=== PATIENT | female | born 1950 | race Caucasian/White ===

== ENCOUNTER → 2016-11-05 | Outpatient (CLI) | payer MEDICARE, OTHER ==
[2016-11-05 16:54] LABS: Basophils % (A) 1 %; CH 29.9; Eosinophils # (A) 0.2 k/uL (0-0.7); Eosinophils % (A) 3 %; HCT 36.3 % (34.0-46.0); HDW 2.94; HGB 12.3 gm/dL (11.4-16.0); Luc # (Auto) 0.18; Luc % (Auto) 2; Lymphocytes # (A) 2.5 k/uL (1.0-4.8); Lymphocytes % (A) 33 %; MCH 30.7 pg (25.0-35.0); MCHC 33.8 g/dL (31.0-37.0); Mean Platelet Volume 7.3; Monocytes # (A) 0.5 k/uL (0-1.0); Monocytes % (A) 6 %; Neutrophils # (A) 4.3 k/uL (1.3-7.7); Neutrophils % (A) 56 %; RBC 3.99 m/uL (3.80-5.40); RDW 13.8 % (11.5-15.5); WBC 7.6 k/uL (3.8-10.6); WBC (Perox) 7.63
[2016-11-05 17:24] LABS: Potassium 4.8 mmol/L (3.5-5.1); Total Bilirubin 0.5 mg/dL (0.2-1.3); Total Protein 6.9 g/dL (6.3-8.2)
--- NOTE | 2016-11-05 18:06 | XR ---
EXAMINATION TYPE: XR chest 2V DATE OF EXAM: 11/05/2016 COMPARISON: 01/12/2016 HISTORY: Short of breath TECHNIQUE: Frontal and lateral views of the chest are obtained. FINDINGS: Heart is probably enlarged. There is no gross heart failure. There is blunting of right co stophrenic angle. Left lung is clear. There is left axillary pacemaker with the lead tip in the right ventricle. There is mild right lateral rib deformity. IMPRESSION: Pleural diaphragmatic scarring on the right side that is unchanged compared to old exam. No heart failure. No acute lung disease. Mild cardiomegaly.
== END | disposition home or self-care (01) ==
LOC: LABWHC1 16:30
PROVIDERS: ATTEND Internal Medicine Cardiovascular Disease
DX: J98.4 Other disorders of lung (principal); I51.7 Cardiomegaly; R05 Cough
CPT/HCPCS: 36415; 71020; 80053; 83880; 85025

== ENCOUNTER → 2017-02-17 | Outpatient (CLI) | payer MEDICARE, OTHER ==
--- NOTE | 2017-02-17 14:33 | CT ---
EXAMINATION TYPE: CT lumbar spine w con DATE OF EXAM: 02/17/2017 COMPARISON: NONE HISTORY: 14-year-old female with low back pain Lons404/80ml. Low back pain. DLP: TECHNIQUE: Contiguous axial scanning of the lumbar spine performed with IV Contrast, patient injected with 80 mL of Visipaque 320. Delayed images through the kidneys were obtained. Coronal/sagittal lee nstructions performed. CT DLP: 1572.4 mGycm Automated exposure control for dose reduction was used. FINDINGS: Vertebral body heights are preserved. Hypertrophic facet arthropathy mid to lower lumbar spine with trace grade 1 anterolisthesis at L2-L4. Severe degenerative disc disease at L4-L5 and L5-S1 with loss of disc height, diffuse disc bulge, and vacuum phenomenon. At T12-L1, no spinal canal or neural foraminal stenosis. L1-L2, no spinal canal or neural foraminal stenosis. At L2-L3, there is diffuse disc bulge and facet degenerative change without significant canal or fora sariah stenosis. At L3-L4, mild bulging disc with ligamentum flavum thickening and facet arthropathy. Changes seen to mildly narrow the spinal canal and causes mild right neuroforaminal stenosis. At L4-L5, diffuse disc bulge with facet arthropathy and ligamentum flavum thickening. Changes result in moderate left and moderate to severe right neuroforaminal stenosis. At L5-S1, diffuse disc bulge with hypertrophic facet arthropathy. Changes result in severe bilateral neuroforaminal stenosis without spinal canal stenosis. Moderate sized hiatal hernia is noted. Cholecystectomy clips. 3 mm right-sided nonobstructive right renal calculus. Moderate atherosclerotic changes throughout the abdominal aorta and iliac arteries. It is some focall y ulcerated plaque or old chronic, calcified dissection in the mid abdominal aorta. Sigmoid diverticulosis. IMPRESSION: 1. NO VERTEBRAL COMPRESSION COLLAPSE. THERE IS A DEGENERATIVE TRACE ANTEROLISTHESIS AT L3-L4. 2. SEVERE DEGENERATIVE DISC DISEASE AT L4-L5 AND L5-S1. ADDITIONAL HYPERTROPHIC FACET ARTHROPATHY IN THE LOWER LUMBAR SPINE WITH LIGAMENTUM FLAVUM THICKENING. 3. AT L5-S1, CHANGES RESULT IN SEVERE BILATERAL NEURAL FORAMINAL STENOSIS. 4. AT L4-L5, CHANGES RESULT IN MODERATE TO SEVERE RIGHT AND MODERATE LEFT NEUROFORAMINAL STENOSIS. AD DITIONAL LEVEL BY LEVEL CHANGES ABOVE. 5. MODERATE-SIZED HIATAL HERNIA, NONOBSTRUCTIVE 3 MM RIGHT RENAL CALCULUS, SIGMOID DIVERTICULOSIS, AN D EITHER SOME FOCALLY ULCERATED PLAQUE OR OLD, CHRONICALLY CALCIFIED SHORT DISSECTION OF THE MID ABDO SARIAH AORTA. CORRELATE FOR ANY PRIOR ARTERIAL CATHETERIZATION/PROCEDURE.
== END | disposition home or self-care (01) ==
LOC: RADCTMAIN 12:13
PROVIDERS: ATTEND Family Medicine
DX: M99.73 Connective tissue and disc stenosis of intervertebral foramina of lumbar region (principal); M43.16 Spondylolisthesis, lumbar region; M51.26 Other intervertebral disc displacement, lumbar region; M46.96 Unspecified inflammatory spondylopathy, lumbar region; M24.28 Disorder of ligament, vertebrae; Z88.0 Allergy status to penicillin; Z88.1 Allergy status to other antibiotic agents; Z88.5 Allergy status to narcotic agent
CPT/HCPCS: 82565; 84520; 72132; 36415; Q9967

== ENCOUNTER 2017-05-25 17:03 | Observation (INO) | payer MEDICARE, OTHER ==
[2017-05-25] MEDS ORDERED: SODIUM CHLORIDE 0.9% 500 ML IV STA (17:43)
--- NOTE | 2017-05-25 17:47 | ED ---
General Adult HPI - General Chief complaint: Recheck/Abnormal Lab/Rx Stated complaint: Abn EKG Time Seen by Provider: 05/25/17 17:05 Source: patient, RN notes reviewed Mode of arrival: wheelchair Limitations: no limitations - History of Present Illness Initial comments: This is a 66-year-old female presents to the emergency department complaining that she has been spitting up for 8 months but states that there is usually any food when she spits up. Patient states in the last couple of weeks occasionally a little bit of food is in with the spit up. Patient states she went to see her doctor again today about that and they recorded a heart rate at 31 beats a minute in the office so they sent to the emergency department. Patient's EKG from the office showed a heart rate in the 60s. Patient denies any chest pain palpitations difficulty breathing or shortness of breath. She does complain of generalized fatigue. Patient denies any recent fever chills or cough per patient denies any diarrhea. Patient denies any dysuria hematuria or urinary frequency. Patient denies headache patient denies numbness weakness per patient denies lightheadedness dizziness or near syncopal episode. - Related Data Home Medications Medication Instructions Recorded Confirmed ALPRAZolam [Xanax] 0.5 mg PO BID PRN 02/19/16 05/25/17 Enalapril Maleate 2.5 mg PO DAILY 02/19/16 05/25/17 Furosemide [Lasix] 40 mg PO BID 02/19/16 05/25/17 Potassium Chloride 16 meq PO BID 02/19/16 05/25/17 Simvastatin [Zocor] 40 mg PO HS 02/19/16 05/25/17 Warfarin [Coumadin] 2.5 mg PO MOTH 02/19/16 05/25/17 Warfarin [Coumadin] 5 mg PO SUTUWEFRSA 02/19/16 05/25/17 oxyCODONE-APAP 10-325MG [Percocet 1 tab PO Q6HR PRN 02/19/16 05/25/17 10-325 mg] Aspirin EC [Ecotrin] 325 mg PO DAILY 05/25/17 05/25/17 Loratadine 10 mg PO DAILY 05/25/17 05/25/17 Metoprolol Tartrate [Lopressor] 75 mg PO BID 05/25/17 05/25/17 Ranitidine HCl 150 mg PO BID 05/25/17 05/25/17 Vortioxetine Hydrobromide 10 mg PO DAILY 05/25/17 05/25/17 [Trintellix] Allergies Allergy/AdvReac Type Severity Reaction Status Date / Time Penicillins Allergy Rash/Hives Verified 05/25/17 17:46 codeine AdvReac Nausea & Verified 05/25/17 17:46 Vomiting levofloxacin [From Levaquin] AdvReac Confusion Verified 05/25/17 17:46 Review of Systems ROS Statement: Those systems with pertinent positive or pertinent negative responses have been documented in the HPI. ROS Other: All systems not noted in ROS Statement are negative. Past Medical History Past Medical History: Heart Failure, COPD, GI Bleed, Osteoarthritis (OA), Pneumonia Additional Past Medical History / Comment(s): heart stent, mitral valve replacement, pacemaker AICD, hypotensive, PT STATED STOOLS HAVE BEEN MUCOUSY TO BLOODY. History of Any Multi-Drug Resistant Organisms: None Reported Past Surgical History: Pacemaker, Tubal Ligation Additional Past Surgical History / Comment(s): valve replacement, tubal ligation , Past Anesthesia/Blood Transfusion Reactions: No Reported Reaction Type of Cardiac Device: Unknown Device Placement Date:: 2014 Past Psychological History: Depression Smoking Status: Current every day smoker Past Alcohol Use History: None Reported Past Drug Use History: None Reported - Past Family History Mother Additional Family Medical History / Comment(s): MOM IN MVA ACCIDENT Father Family Medical History: Coronary Artery Disease (CAD) Additional Family Medical History / Comment(s): CARDIAC DISEASE General Exam - General Exam Comments Initial Comments: GENERAL: Patient is well-developed and well-nourished. Patient is nontoxic and well- hydrated and is in mild distress. ENT: Neck is soft and supple. No significant lymphadenopathy is noted. Oropharynx is clear. Moist mucous membranes. Neck has full range of motion without eliciting any pain. EYES: The sclera were anicteric and conjunctiva were pink and moist. Extraocular movements were intact and pupils were equal round and reactive to light. Eyelids were unremarkable. PULMONARY: Unlabored respirations. Good breath sounds bilaterally. No audible rales rhonchi or wheezing was noted. CARDIOVASCULAR: There is a regular rate and rhythm without any murmurs gallops or rubs. ABDOMEN: Soft and nontender with normal bowel sounds. No palpable organomegaly was noted. There is no palpable pulsatile mass. SKIN: Skin is clear with no lesions or rashes and otherwise unremarkable. NEUROLOGIC: Patient is alert and oriented x3. Cranial nerves II through XII are grossly intact. Motor and sensory are also intact. Normal speech, volume and content. Symmetrical smile. MUSCULOSKELETAL: Normal extremities with adequate strength and full range of motion. No lower extremity swelling or edema. No calf tenderness. LYMPHATICS: No significant lymphadenopathy is noted PSYCHIATRIC: Normal psychiatric evaluation. Normal interpersonal interactions appears functionally intact in deals appropriately with others. No signs of depression. No signs of anxiety. Limitations: no limitations Course Vital Signs 05/25/17 05/25/17 05/25/17 17:07 18:18 18:45 Temperature 98.0 F 97.6 F Pulse Rate 32 L 75 Pulse Rate [ 65 [employer] ] Respiratory 20 18 Rate Blood Pressure 90/50 110/52 O2 Sat by Pulse 100 98 Oximetry 05/25/17 20:15 Temperature Pulse Rate 60 Pulse Rate [ [employer] ] Respiratory 18 Rate Blood Pressure 126/55 O2 Sat by Pulse 99 Oximetry Medical Decision Making - Medical Decision Making EKG shows a paced rhythm at 68 bpm with an occasional PVC QRS is 102 QT interval is 476 QTC is 506. Patient's EKG shows no ST segment elevation or depression Chest x-ray shows no acute abnormality. Patient was bradycardic down to 50 but never into the 30s while in the emergency department. I spoke with Dr. Jose Carlos Branch he agreed to admit the patient admitted the patient consult cardiology. - Lab Data Result diagrams: 05/25/17 17:30 05/25/17 17:30 Lab Results 05/25/17 05/25/17 05/25/17 Range/Units 17:30 17:30 17:30 WBC 7.9 (3.8-10.6) k/uL RBC 4.61 (3.80-5.40) m/uL Hgb 10.9 L (11.4-16.0) gm/dL Hct 35.9 (34.0-46.0) % MCV 78.0 L (80.0-100.0) fL MCH 23.6 L (25.0-35.0) pg MCHC 30.2 L (31.0-37.0) g/dL RDW 18.4 H (11.5-15.5) % Plt Count 298 (150-450) k/uL Neutrophils % 59 % Lymphocytes % 29 % Monocytes % 7 % Eosinophils % 3 % Basophils % 0 % Neutrophils # 4.7 (1.3-7.7) k/uL Lymphocytes # 2.3 (1.0-4.8) k/uL Monocytes # 0.5 (0-1.0) k/uL Eosinophils # 0.3 (0-0.7) k/uL Basophils # 0.0 (0-0.2) k/uL Hypochromasia Marked Anisocytosis Slight Microcytosis Slight PT (9.0-12.0) sec INR (<1.2) APTT (22.0-30.0) sec Sodium 142 (137-145) mmol/L Potassium 4.4 (3.5-5.1) mmol/L Chloride 98 (98-107) mmol/L Carbon Dioxide 32 H (22-30) mmol/L Anion Gap 12 mmol/L BUN 17 (7-17) mg/dL Creatinine 1.30 H (0.52-1.04) mg/dL Est GFR (MDRD) Af Amer 49 (>60 ml/min/1.73 sqM) Est GFR (MDRD) Non-Af 41 (>60 ml/min/1.73 sqM) Glucose 81 (74-99) mg/dL Calcium 9.7 (8.4-10.2) mg/dL Magnesium 2.0 (1.6-2.3) mg/dL Total Bilirubin 0.4 (0.2-1.3) mg/dL AST 26 (14-36) U/L ALT 24 (9-52) U/L Alkaline Phosphatase 127 H (38-126) U/L Total Creatine Kinase 54 (30-135) U/L CK-MB (CK-2) 0.5 (0.0-2.4) ng/mL CK-MB (CK-2) Rel Index 0.9 Troponin I <0.012 (0.000-0.034) ng/mL Total Protein 7.2 (6.3-8.2) g/dL Albumin 4.2 (3.5-5.0) g/dL 05/25/17 Range/Units 17:30 WBC (3.8-10.6) k/uL RBC (3.80-5.40) m/uL Hgb (11.4-16.0) gm/dL Hct (34.0-46.0) % MCV (80.0-100.0) fL MCH (25.0-35.0) pg MCHC (31.0-37.0) g/dL RDW (11.5-15.5) % Plt Count (150-450) k/uL Neutrophils % % Lymphocytes % % Monocytes % % Eosinophils % % Basophils % % Neutrophils # (1.3-7.7) k/uL Lymphocytes # (1.0-4.8) k/uL Monocytes # (0-1.0) k/uL Eosinophils # (0-0.7) k/uL Basophils # (0-0.2) k/uL Hypochromasia Anisocytosis Microcytosis PT 15.6 H (9.0-12.0) sec INR 1.7 H (<1.2) APTT 29.8 (22.0-30.0) sec Sodium (137-145) mmol/L Potassium (3.5-5.1) mmol/L Chloride (98-107) mmol/L Carbon Dioxide (22-30) mmol/L Anion Gap mmol/L BUN (7-17) mg/dL Creatinine (0.52-1.04) mg/dL Est GFR (MDRD) Af Amer (>60 ml/min/1.73 sqM) Est GFR (MDRD) Non-Af (>60 ml/min/1.73 sqM) Glucose (74-99) mg/dL Calcium (8.4-10.2) mg/dL Magnesium (1.6-2.3) mg/dL Total Bilirubin (0.2-1.3) mg/dL AST (14-36) U/L ALT (9-52) U/L Alkaline Phosphatase (38-126) U/L Total Creatine Kinase (30-135) U/L CK-MB (CK-2) (0.0-2.4) ng/mL CK-MB (CK-2) Rel Index Troponin I (0.000-0.034) ng/mL Total Protein (6.3-8.2) g/dL Albumin (3.5-5.0) g/dL Disposition Clinical Impression: Bradycardia, Lightheaded Disposition: ADMITTED IP TO THIS HOSP Referrals: Benedicto Branch MD [Primary Care Provider] - 1-2 days Time of Disposition: 20:39
[2017-05-25 18:11] LABS: Anisocytosis Slight; Basophils % (A) 0 %; Eosinophils # (A) 0.3 k/uL (0-0.7); Eosinophils % (A) 3 %; HCT 35.9 % (34.0-46.0); HGB 10.9 gm/dL (11.4-16.0); Hypochromasia Marked; Lymphocytes # (A) 2.3 k/uL (1.0-4.8); Lymphocytes % (A) 29 %; MCH 23.6 pg (25.0-35.0); MCHC 30.2 g/dL (31.0-37.0); Mean Platelet Volume 8.2; Microcytosis Slight; Monocytes # (A) 0.5 k/uL (0-1.0); Monocytes % (A) 7 %; Neutrophils # (A) 4.7 k/uL (1.3-7.7); Neutrophils % (A) 59 %; Platelet Count 298 k/uL (150-450); RBC 4.61 m/uL (3.80-5.40); RDW 18.4 % (11.5-15.5); WBC 7.9 k/uL (3.8-10.6)
[2017-05-25 18:18] LABS: INR 1.7 (<1.2); Partial Thromboplastin Time 29.8 sec (22.0-30.0); Prothrombin Time 15.6 sec (9.0-12.0)
[2017-05-25 18:22] LABS: Albumin 4.2 g/dL (3.5-5.0); Calcium 9.7 mg/dL (8.4-10.2); Potassium 4.4 mmol/L (3.5-5.1); Total Bilirubin 0.4 mg/dL (0.2-1.3); Total Protein 7.2 g/dL (6.3-8.2)
[2017-05-25 18:33] LABS: Creatine Kinase 54 U/L (30-135)
[2017-05-25 18:44] LABS: Creatine Kinase MB 0.5 ng/mL (0.0-2.4); Troponin I <0.012 ng/mL (0.000-0.034)
--- NOTE | 2017-05-25 19:00 | XR ---
EXAMINATION: XR chest 2V DATE AND TIME: 05/25/2017 6:21 PM ORDERING PROVIDER: Jose Lobo MD CLINICAL INDICATION: Chest Pain TECHNIQUE: PA and lateral COMPARISON: 11/05/2016 DESCRIPTION: Cardiac pacemaker and EKG leads noted. The cardiac silhouette is not enlarged. The previ ously seen elevated right hemidiaphragm is redemonstrated. The lungs are clear. The pleural spaces are negative. The skeletal structures are intact without focal findings. The soft tissues are unremarkable. IMPRESSION: NO DEFINITE ACUTE PROCESS.
[2017-05-25] MEDS ORDERED: SODIUM CHLORIDE 0.9% 1,000 ML IV ONE (20:39)
[2017-05-25 21:53] VITALS: BMI 33.7
[2017-05-25] MEDS ORDERED: ALPRAZolam 0.5 MG TAB PO PRN (23:23)
[2017-05-25] MEDS ORDERED: WARFARIN 5 MG TAB PO SCH (23:30)
[2017-05-25] MEDS: ATORVASTATIN 20 MG TAB PO SCH (23:55)
[2017-05-25] MEDS: oxyCODONE-APAP 10-325MG 1 EACH TAB PO PRN (23:55)
[2017-05-26 06:46] LABS: INR 1.7 (<1.2); Prothrombin Time 15.4 sec (9.0-12.0)
[2017-05-26 07:08] LABS: Calcium 9.2 mg/dL (8.4-10.2)
[2017-05-26 07:25] LABS: Potassium 5.1 mmol/L (3.5-5.1)
[2017-05-26] MEDS ORDERED: FAMOTIDINE 20 MG TAB PO SCH (09:00)
[2017-05-26] MEDS ORDERED: ASPIRIN 325 MG TAB PO SCH (09:00)
[2017-05-26] MEDS: POTASSIUM CHLORIDE ER 10 MEQ TAB.ER.PRT PO SCH ×2 (09:52→20:08)
[2017-05-26] MEDS: FUROSEMIDE 40 MG TAB PO SCH ×2 (09:53→20:16)
[2017-05-26] MEDS: LISINOPRIL 5 MG TAB PO SCH (09:53)
[2017-05-26] MEDS: LORATADINE 10 MG TAB PO SCH (09:53)
[2017-05-26] MEDS: NON-FORMULARY DRUG (Vortioxetine Hydrobromide [Trintellix] 10 MG) PO SCH (10:42)
[2017-05-26] MEDS: oxyCODONE-APAP 10-325MG 1 EACH TAB PO PRN ×2 (10:44→20:15)
--- NOTE | 2017-05-26 11:04 | P.CRDCN ---
History of Present Illness Consult date: 05/26/17 Requesting physician: Benedicto Branch Reason for Consult (text): Bradycardia Chief complaint: Vomiting History of present illness: This 58-year-old patient follows regularly with Dr. Frances in the office. She has a history of ischemic cardiomyopathy, prior AICD, status post prior stenting of the circumflex and diuretic by Dr. Aden at [facility] in 2005, history of sustained ventricular tachycardia, paroxysmal atrial fibrillation, hyperlipidemia chronic COPD, nicotine dependence , history of mitral valve repair with ring in 2005, mitral valve [place] [address] Dsouza, presents to the hospital with symptoms of vomiting, she apparently was also noted to be significantly bradycardic and for this reason a cardiology consultation was requested. Cording to the patient, she's been feeling extremely weak and fatigued at home, she denies any fever, she does have productive cough with significant rhonchi and wheezing noted. EKG on arrival here shows a normal sinus rhythm, with atrial pacing, and intermittent pacer spikes noted following PVCs. Chest x-ray did not reveal any acute process. At pressure on arrival here 90/50, 100% on room air. At pressure this morning 104/50 with a heart rate in the 60s. White blood cell count 7.9, hemoglobin 10.9, platelet count 298. Sodium 142, potassium 5.1, BUN 18, creatinine 1.1, creatinine on admission was 1.3. Troponin 0.012. Past Medical History Past Medical History: Heart Failure, COPD, GI Bleed, Osteoarthritis (OA), Pneumonia Additional Past Medical History / Comment(s): heart stent, mitral valve replacement, pacemaker AICD, hypotensive, PT STATED STOOLS HAVE BEEN MUCOUSY TO BLOODY, chronic back pain History of Any Multi-Drug Resistant Organisms: None Reported Past Surgical History: Section, Pacemaker, Tubal Ligation Additional Past Surgical History / Comment(s): valve replacement, tubal ligation , Past Anesthesia/Blood Transfusion Reactions: No Reported Reaction Type of Cardiac Device: Unknown Device Placement Date:: 2014 Past Psychological History: Depression Smoking Status: Current every day smoker Past Alcohol Use History: None Reported Past Drug Use History: None Reported - Past Family History Mother Additional Family Medical History / Comment(s): MOM IN MVA ACCIDENT Father Family Medical History: Coronary Artery Disease (CAD) Additional Family Medical History / Comment(s): CARDIAC DISEASE Medications and Allergies Home Medications Medication Instructions Recorded Confirmed Type ALPRAZolam [Xanax] 0.5 mg PO BID PRN 02/19/16 05/25/17 History Enalapril Maleate 2.5 mg PO DAILY 02/19/16 05/25/17 History Furosemide [Lasix] 40 mg PO BID 02/19/16 05/25/17 History Potassium Chloride 16 meq PO BID 02/19/16 05/25/17 History Simvastatin [Zocor] 40 mg PO HS 02/19/16 05/25/17 History Warfarin [Coumadin] 2.5 mg PO MOTH 02/19/16 05/25/17 History Warfarin [Coumadin] 5 mg PO SUTUWEFRSA 02/19/16 05/25/17 History oxyCODONE-APAP 10-325MG [Percocet 1 tab PO Q6HR PRN 02/19/16 05/25/17 History 10-325 mg] Aspirin EC [Ecotrin] 325 mg PO DAILY 05/25/17 05/25/17 History Loratadine 10 mg PO DAILY 05/25/17 05/25/17 History Metoprolol Tartrate [Lopressor] 75 mg PO BID 05/25/17 05/25/17 History Ranitidine HCl 150 mg PO BID 05/25/17 05/25/17 History Vortioxetine Hydrobromide 10 mg PO DAILY 05/25/17 05/25/17 History [Trintellix] Allergies Allergy/AdvReac Type Severity Reaction Status Date / Time Penicillins Allergy Rash/Hives Verified 05/25/17 17:46 codeine AdvReac Nausea & Verified 05/25/17 17:46 Vomiting levofloxacin [From Levaquin] AdvReac Confusion Verified 05/25/17 17:46 Physical Exam Vitals: Vital Signs Temp Pulse Pulse Pulse Resp BP BP 05/26/17 03:40 97.0 F L 67 18 104/54 05/25/17 23:10 97.2 F L 59 L 18 106/57 05/25/17 21:44 97.9 F 64 18 121/60 05/25/17 21:30 64 18 05/25/17 20:15 60 18 126/55 05/25/17 18:45 97.6 F 75 18 110/52 05/25/17 18:18 65 05/25/17 17:07 98.0 F 32 L 20 90/50 Pulse Ox 05/26/17 03:40 100 05/25/17 23:10 98 05/25/17 21:44 95 05/25/17 21:30 05/25/17 20:15 99 05/25/17 18:45 98 05/25/17 18:18 05/25/17 17:07 100 Intake and Output 05/25/17 05/26/17 05/26/17 22:59 06:59 14:59 Intake Total 75 500 240 Balance 75 500 240 Intake: Intake, IV Titration 75 400 Amount Sodium Chloride 0.9% 1, 75 400 000 ml @ 75 mls/hr IV . [id number] ONE Rx#:[id number] Oral 100 240 Other: Voiding Method Toilet Toilet # Voids 1 Weight 89.086 kg 89 kg PHYSICAL EXAMINATION: HEENT: Head is atraumatic, normocephalic. Pupils equal, round. Neck is supple. There is no elevated jugular venous pressure. HEART EXAMINATION: Heart S1, S2 normal. No murmur or gallop heard. CHEST EXAMINATION: Lungs reveal scattered coarse wheezing and rhonchi throughout ABDOMEN: Soft, nontender. Bowel sounds are heard. No organomegaly noted. EXTREMITIES: 2+ peripheral pulses with no evidence of peripheral edema and no calf tenderness noted. NEUROLOGIC patient is awake, alert and oriented -3. . Results 05/25/17 17:30 05/26/17 06:08 Cardiac Enzymes 05/25/17 05/25/17 Range/Units 17:30 17:30 AST 26 (14-36) U/L CK-MB (CK-2) 0.5 (0.0-2.4) ng/mL Troponin I <0.012 (0.000-0.034) ng/mL Coagulation 05/25/17 05/26/17 Range/Units 17:30 06:08 PT 15.6 H 15.4 H (9.0-12.0) sec APTT 29.8 (22.0-30.0) sec CBC 05/25/17 Range/Units 17:30 WBC 7.9 (3.8-10.6) k/uL RBC 4.61 (3.80-5.40) m/uL Hgb 10.9 L (11.4-16.0) gm/dL Hct 35.9 (34.0-46.0) % Plt Count 298 (150-450) k/uL Comprehensive Metabolic Panel 05/25/17 05/26/17 Range/Units 17:30 06:08 Sodium 142 142 (137-145) mmol/L Potassium 4.4 5.1 (3.5-5.1) mmol/L Chloride 98 106 (98-107) mmol/L Carbon Dioxide 32 H 25 (22-30) mmol/L BUN 17 18 H (7-17) mg/dL Creatinine 1.30 H 1.17 H (0.52-1.04) mg/dL Glucose 81 86 (74-99) mg/dL Calcium 9.7 9.2 (8.4-10.2) mg/dL AST 26 (14-36) U/L ALT 24 (9-52) U/L Alkaline Phosphatase 127 H (38-126) U/L Total Protein 7.2 (6.3-8.2) g/dL Albumin 4.2 (3.5-5.0) g/dL Current Medications Generic Name Dose Route Start Last Admin Trade Name Freq PRN Reason Stop Dose Admin Alprazolam 0.5 mg 05/25/17 23:23 Xanax PO BID PRN Anxiety Aspirin 325 mg 05/26/17 09:00 Aspirin PO DAILY [facility] Atorvastatin Calcium 20 mg 05/25/17 23:28 05/25/17 23:55 Lipitor PO 20 mg HS AYANNA Administration Famotidine 20 mg 05/26/17 09:00 Pepcid PO BID [facility] Furosemide 40 mg 05/26/17 09:00 Lasix PO BID [facility] Lisinopril 5 mg 05/26/17 09:00 Zestril PO DAILY AYANNA Loratadine 10 mg 05/26/17 09:00 Claritin PO DAILY [facility] Non-Formulary Medication 10 mg 05/26/17 09:00 Vortioxetine Hydrobromide [Trintellix] PO DAILY [facility] Oxycodone/Acetaminophen 1 each 05/25/17 23:23 05/25/17 23:55 Percocet 10-325 PO 1 each Q6HR PRN Administration Pain Potassium Chloride 15 meq 05/26/17 09:00 K-Dur 10 PO BID AYANNA Warfarin Sodium 2.5 mg 05/26/17 18:00 Coumadin PO [id number] [facility] Warfarin Sodium 5 mg 05/25/17 23:30 05/25/17 23:55 Coumadin PO 5 mg [id number] [facility] Administration Intake and Output 05/25/17 05/26/17 05/26/17 22:59 06:59 14:59 Intake Total 75 500 240 Balance 75 500 240 Intake: Intake, IV Titration 75 400 Amount Sodium Chloride 0.9% 1, 75 400 000 ml @ 75 mls/hr IV . [id number] ONE Rx#:[id number] Oral 100 240 Other: Voiding Method Toilet Toilet # Voids 1 Weight 89.086 kg 89 kg 05/25/17 17:30 05/26/17 06:08 EKG Interpretations (text) EKG shows an atrial paced rhythm with underlying a normal sinus, pacing noted post PVC Assessment and Plan Plan: Assessment and plan #1 symptoms of vomiting with persistent productive cough of clear sputum. #2 bradycardia noted in the office, heart rate here in the 60s, EKG shows an paced rhythm with occasional paced beats noted post-PVC #3 ischemic cardiomyopathy with prior AICD #4 known history of coronary artery disease with prior stenting of the diuretic and circumflex in 2005 #5 nicotine dependence #6 hypertension #7 hyperlipidemia #8 history of mitral valve replacement #9 COPD #10 paroxysmal atrial fibrillation, on Coumadin, INR 1.7 #11 mild dehydration, creatinine on admission 1.3, 1.17 this morning Plan Will obtain an echocardiogram with Doppler study. We will also interrogate the AICD to assess appropriate function.. Decrease aspirin to 81 mg daily. Continue by mouth Lasix, lisinopril, resume beta yogesh at a lower dose, patient's beta yogesh was held because of bradycardia, patient does have a device in place. Blood pressure 110/60. Further recommendations to follow. DNP note has been reviewed, I agree with a documented findings and plan of care. Patient was seen and examined.
--- NOTE | 2017-05-26 12:08 | P.HPIM ---
History of Present Illness 66-year-old patient presented to family physician with bigeminal PVCs somnolence hypoxia pulse oximetry was 85%. Patient was sent to the emergency room for evaluation. Patient also states she's had chronic vomiting. Patient has history of pacemaker with AICD Review of Systems Constitutional: Reports fatigue Gastrointestinal: Reports nausea, Reports vomiting Past Medical History Past Medical History: Heart Failure, COPD, GI Bleed, Osteoarthritis (OA), Pneumonia Additional Past Medical History / Comment(s): heart stent, mitral valve replacement, pacemaker AICD, hypotensive, PT STATED STOOLS HAVE BEEN MUCOUSY TO BLOODY, chronic back pain History of Any Multi-Drug Resistant Organisms: None Reported Past Surgical History: Section, Pacemaker, Tubal Ligation Additional Past Surgical History / Comment(s): valve replacement, tubal ligation , Past Anesthesia/Blood Transfusion Reactions: No Reported Reaction Type of Cardiac Device: Unknown Device Placement Date:: 2014 Past Psychological History: Depression Smoking Status: Current every day smoker Past Alcohol Use History: None Reported Past Drug Use History: None Reported - Past Family History Mother Additional Family Medical History / Comment(s): MOM IN MVA ACCIDENT Father Family Medical History: Coronary Artery Disease (CAD) Additional Family Medical History / Comment(s): CARDIAC DISEASE Medications and Allergies Home Medications Medication Instructions Recorded Confirmed Type ALPRAZolam [Xanax] 0.5 mg PO BID PRN 02/19/16 05/25/17 History Enalapril Maleate 2.5 mg PO DAILY 02/19/16 05/25/17 History Furosemide [Lasix] 40 mg PO BID 02/19/16 05/25/17 History Potassium Chloride 16 meq PO BID 02/19/16 05/25/17 History Simvastatin [Zocor] 40 mg PO HS 02/19/16 05/25/17 History Warfarin [Coumadin] 2.5 mg PO MOTH 02/19/16 05/25/17 History Warfarin [Coumadin] 5 mg PO SUTUWEFRSA 02/19/16 05/25/17 History oxyCODONE-APAP 10-325MG [Percocet 1 tab PO Q6HR PRN 02/19/16 05/25/17 History 10-325 mg] Aspirin EC [Ecotrin] 325 mg PO DAILY 05/25/17 05/25/17 History Loratadine 10 mg PO DAILY 05/25/17 05/25/17 History Metoprolol Tartrate [Lopressor] 75 mg PO BID 05/25/17 05/25/17 History Ranitidine HCl 150 mg PO BID 05/25/17 05/25/17 History Vortioxetine Hydrobromide 10 mg PO DAILY 05/25/17 05/25/17 History [Trintellix] Allergies Allergy/AdvReac Type Severity Reaction Status Date / Time Penicillins Allergy Rash/Hives Verified 05/25/17 17:46 codeine AdvReac Nausea & Verified 05/25/17 17:46 Vomiting levofloxacin [From Levaquin] AdvReac Confusion Verified 05/25/17 17:46 Physical Exam Vitals: Vital Signs Temp Pulse Pulse Pulse Resp BP BP 05/26/17 08:00 97.6 F 65 78 20 117/73 05/26/17 03:40 97.0 F L 67 18 104/54 05/25/17 23:10 97.2 F L 59 L 18 106/57 05/25/17 21:44 97.9 F 64 18 121/60 05/25/17 21:30 64 18 05/25/17 20:15 60 18 126/55 05/25/17 18:45 97.6 F 75 18 110/52 05/25/17 18:18 65 05/25/17 17:07 98.0 F 32 L 20 90/50 Pulse Ox 05/26/17 08:00 99 05/26/17 03:40 100 05/25/17 23:10 98 05/25/17 21:44 95 05/25/17 21:30 05/25/17 20:15 99 05/25/17 18:45 98 05/25/17 18:18 05/25/17 17:07 100 Intake and Output 05/25/17 05/26/17 05/26/17 22:59 06:59 14:59 Intake Total 75 500 240 Balance 75 500 240 Intake: Intake, IV Titration 75 400 Amount Sodium Chloride 0.9% 1, 75 400 000 ml @ 75 mls/hr IV . [id number] ONE Rx#:[id number] Oral 100 240 Other: Voiding Method Toilet Toilet # Voids 1 Weight 89.086 kg 89 kg - Constitutional General appearance: obese - EENT Eyes: PERRLA Ears: bilateral: normal - Neck Neck: normal ROM - Respiratory Respiratory: bilateral: CTA - Cardiovascular Rhythm: irregularly irregular Abnormal Heart Sounds: systolic murmur - Gastrointestinal General gastrointestinal: normal bowel sounds, soft - Integumentary Integumentary: normal - Neurologic Neurologic: CNII-XII intact - Musculoskeletal Musculoskeletal: generalized weakness - Psychiatric Psychiatric: A&O x's 3, appropriate affect, intact judgment & insight Results CBC & Chem 7: 05/25/17 17:30 05/26/17 06:08 Labs: Abnormal Lab Results - Last 24 Hours (Table) 05/25/17 05/25/17 05/25/17 Range/Units 17:30 17:30 17:30 Hgb 10.9 L (11.4-16.0) gm/dL MCV 78.0 L (80.0-100.0) fL MCH 23.6 L (25.0-35.0) pg MCHC 30.2 L (31.0-37.0) g/dL RDW 18.4 H (11.5-15.5) % PT 15.6 H (9.0-12.0) sec INR 1.7 H (<1.2) Carbon Dioxide 32 H (22-30) mmol/L BUN (7-17) mg/dL Creatinine 1.30 H (0.52-1.04) mg/dL Alkaline Phosphatase 127 H (38-126) U/L 05/26/17 05/26/17 Range/Units 06:08 06:08 Hgb (11.4-16.0) gm/dL MCV (80.0-100.0) fL MCH (25.0-35.0) pg MCHC (31.0-37.0) g/dL RDW (11.5-15.5) % PT 15.4 H (9.0-12.0) sec INR 1.7 H (<1.2) Carbon Dioxide (22-30) mmol/L BUN 18 H (7-17) mg/dL Creatinine 1.17 H (0.52-1.04) mg/dL Alkaline Phosphatase (38-126) U/L Chest x-ray: report reviewed Thrombosis Risk Factor Assmnt - Choose All That Apply Each Factor Represents 1 point: Abnormal pulmonary function (COPD), Obesity ( BMI >25) Other Risk Factors: Yes Each Risk Factor Represents 2 Points: Age 61-74 years Other congenital or acquired thrombophilia - If yes, enter type in comment: No Thrombosis Risk Factor Assessment Total Risk Factor Score: 4 Thrombosis Risk Factor Assessment Level: Moderate Risk Assessment and Plan Plan: Assessment Bradycardia with weakness Hypotension Chronic vomiting History of ventricular tachycardia Paroxysmal atrial fibrillation History of COPD Osteoarthritis Coronary disease with stent Mitral valve replacement Pacemaker with AICD Plan Continued consultation with cardiology Consultation with gastroenterology regarding chronic vomiting
--- NOTE | 2017-05-26 12:37 | ECHOF ---
Referral Reason:sob MEASUREMENTS -------- HEIGHT: 162.6 cm WEIGHT: 88.9 kg BP: 117/73 IVSd: 1.3 cm (0.6 - 1.1) LVIDd: 5.6 cm (3.9 - 5.3) LVPWd: 1.5 cm (0.6 - 1.1) IVSs: 1.3 cm LVIDs: 5.2 cm LVPWs: 1.4 cm Ao Diam: 3.2 cm (2.0 - 3.7) AV Cusp: 1.4 cm (1.5 - 2.6) LA Diam: 4.1 cm (2.7 - 3.8) MV E Pillo: 1.51 m/s MV DecT: 357 ms MV A Pillo: 0.57 m/s MV E/A Ratio: 2.67 RAP: 15.00 mmHg RVSP: 47.45 mmHg FINDINGS -------- Sinus rhythm. AICD This was a technically good study. The left ventricle is mildly dilated. There is borderline concentric left ventricular hypertrophy. There is severe global hypokinesis of LV . Overall left ventricular systolic function is severely impaired with, an EF between 20 - 25 %. The right ventricle is normal in size and function. The left atrium is mildly dilated. The right atrium is normal in size. Aortic valve is trileaflet and is mildly thickened. Normally functioning bioprosthetic mitral valve. Mild tricuspid regurgitation present. There is mild pulmonary hypertension. The right ventricular systolic pressure, as measured by Doppler, is 47.45mmHg. Trace/mild (physiologic) pulmonic regurgitation. The aortic root size is normal. The inferior vena cava is mildly dilated. The pericardium is normal. CONCLUSIONS -------- 1. Sinus rhythm. 2. AICD 3. This was a technically good study. 4. The left ventricle is mildly dilated. 5. There is borderline concentric left ventricular hypertrophy. 6. There is severe global hypokinesis of LV . 7. Overall left ventricular systolic function is severely impaired with, an EF between 20 - 25 %. 8. The right ventricle is normal in size and function. 9. The left atrium is mildly dilated. 10. The right atrium is normal in size. 11. Aortic valve is trileaflet and is mildly thickened. 12. Normally functioning bioprosthetic mitral valve. 13. Mild tricuspid regurgitation present. 14. There is mild pulmonary hypertension. 15. The right ventricular systolic pressure, as measured by Doppler, is 47.45mmHg. 16. Trace/mild (physiologic) pulmonic regurgitation. 17. The aortic root size is normal. 18. The inferior vena cava is mildly dilated. 19. The pericardium is normal. VICE PRESIDENT MEDIA RELATIONS: Thea Enrique RDCS
[2017-05-26] MEDS: METOCLOPRAMIDE 10 MG TAB PO SCH ×2 (12:49→17:50)
[2017-05-26] MEDS ORDERED: WARFARIN 2.5 MG TAB PO SCH (18:00)
[2017-05-26] MEDS: METOPROLOL TARTRATE 25 MG TAB PO SCH (20:16)
[2017-05-26] MEDS: ATORVASTATIN 20 MG TAB PO SCH (20:16)
[2017-05-26] MEDS ORDERED: POLYETHYLENE GLYCOL 3350 17 GM POWD.PACK PO SCH (21:00)
[2017-05-27] MEDS: METOCLOPRAMIDE 10 MG TAB PO SCH ×2 (06:49→11:32)
[2017-05-27 07:05] LABS: INR 1.9 (<1.2); Prothrombin Time 16.9 sec (9.0-12.0)
[2017-05-27 07:13] LABS: Calcium 9.3 mg/dL (8.4-10.2); Potassium 4.1 mmol/L (3.5-5.1)
[2017-05-27] MEDS: LORATADINE 10 MG TAB PO SCH (08:21)
[2017-05-27] MEDS: LISINOPRIL 5 MG TAB PO SCH (08:21)
[2017-05-27] MEDS: FUROSEMIDE 40 MG TAB PO SCH (08:21)
[2017-05-27] MEDS: METOPROLOL TARTRATE 25 MG TAB PO SCH (08:22)
[2017-05-27] MEDS: POTASSIUM CHLORIDE ER 10 MEQ TAB.ER.PRT PO SCH (08:22)
[2017-05-27] MEDS: NON-FORMULARY DRUG (Vortioxetine Hydrobromide [Trintellix] 10 MG) PO SCH (08:26)
[2017-05-27] MEDS ORDERED: ASPIRIN 81 MG PO SCH (09:00)
[2017-05-27] MEDS ORDERED: LISINOPRIL 10 MG TAB PO SCH (09:00)
[2017-05-27] MEDS ORDERED: FAMOTIDINE 20 MG TAB PO SCH (09:00)
--- NOTE | 2017-05-27 09:12 | P.CONS ---
History of Present Illness - Reason for Consult Consult date: 05/27/17 Nausea vomiting 6 months Requesting physician: Benedicto Branch - History of Present Illness 66-year-old female with a history of cholecystectomy, ischemic cardiomyopathy AICD CAD with PCI stent paroxysmal atrial fibrillation maintained on warfarin, COPD, mitral valve repair/replacement admitted with intractable nausea vomiting 6 months and bradycardia. Patient states her emesis are characterized mostly as phlegm base clear small copious thick secretions. Denies large volume emesis /projectile emesis. Recently she has started to vomit small amounts of her diet. No weight loss. No fever. Denies hematemesis hematochezia or melena. EGD/ aborted colonoscopy performed by Dr. Yang January 2016 for evaluation of epigastric pain nausea vomiting diarrhea and rectal bleeding. EGD identified a small sliding hiatal hernia otherwise upper endoscopy was within normal limits. Colonoscopy aborted because of extremely poor prep. Low-grade internal hemorrhoids were noted and there was no evidence of bleeding.. Presently INR is 1.9. She tried occasional OTC H2 antagonists without improvement. Hemoglobin 10.9. MCV 78. Platelet 298. White count 7.9. Review of Systems Constitutional: Denies fever, chills, sweats, weight gain, or loss. HEENT: Negative for migraines, blurred vision or loss, earaches, drainage, tinnitus, oral mucosal lesions, dysphagia, or odynophagia. CARDIAC: CHF. MVR. Pacemaker. Ischemic cardiomyopathy. Paroxysmal atrial fibrillation. Negative for chest pain, arrhythmias, or palpitation. RESPIRATORY: COPD. Negative for shortness of breath, hemoptysis, cough, or sputum production. GI: See HPI for pertinent findings. : Negative for hematuria, urgency, frequency, polyuria, or dysuria. GYNc: Denies possibility of . Negative vaginal discharge. MUSCULOSKELETAL: Negative for muscle aches, swelling, arthritis, and arthralgias. NEUROLOGIC: Negative for stroke or TIA. ENDOCRINE: Negative for thyroid problems. SKIN: Negative for rash or itching. PSYCHIATRIC: Depression. Past Medical History Past Medical History: Heart Failure, COPD, GI Bleed, Osteoarthritis (OA), Pneumonia Additional Past Medical History / Comment(s): heart stent, mitral valve replacement, pacemaker AICD, hypotensive, PT STATED STOOLS HAVE BEEN MUCOUSY TO BLOODY, chronic back pain History of Any Multi-Drug Resistant Organisms: None Reported Past Surgical History: Section, Pacemaker, Tubal Ligation Additional Past Surgical History / Comment(s): valve replacement, tubal ligation , Past Anesthesia/Blood Transfusion Reactions: No Reported Reaction Type of Cardiac Device: Unknown Device Placement Date:: 2014 Past Psychological History: Depression Smoking Status: Current every day smoker Past Alcohol Use History: None Reported Past Drug Use History: None Reported - Past Family History Mother Additional Family Medical History / Comment(s): MOM IN MVA ACCIDENT Father Family Medical History: Coronary Artery Disease (CAD) Additional Family Medical History / Comment(s): CARDIAC DISEASE Medications and Allergies Home Medications Medication Instructions Recorded Confirmed Type ALPRAZolam [Xanax] 0.5 mg PO BID PRN 02/19/16 05/25/17 History Enalapril Maleate 2.5 mg PO DAILY 02/19/16 05/25/17 History Furosemide [Lasix] 40 mg PO BID 02/19/16 05/25/17 History Potassium Chloride 16 meq PO BID 02/19/16 05/25/17 History Simvastatin [Zocor] 40 mg PO HS 02/19/16 05/25/17 History Warfarin [Coumadin] 2.5 mg PO MOTH 02/19/16 05/25/17 History Warfarin [Coumadin] 5 mg PO SUTUWEFRSA 02/19/16 05/25/17 History oxyCODONE-APAP 10-325MG [Percocet 1 tab PO Q6HR PRN 02/19/16 05/25/17 History 10-325 mg] Aspirin EC [Ecotrin] 325 mg PO DAILY 05/25/17 05/25/17 History Loratadine 10 mg PO DAILY 05/25/17 05/25/17 History Metoprolol Tartrate [Lopressor] 75 mg PO BID 05/25/17 05/25/17 History Ranitidine HCl 150 mg PO BID 05/25/17 05/25/17 History Vortioxetine Hydrobromide 10 mg PO DAILY 05/25/17 05/25/17 History [Trintellix] Allergies Allergy/AdvReac Type Severity Reaction Status Date / Time Penicillins Allergy Rash/Hives Verified 05/25/17 17:46 codeine AdvReac Nausea & Verified 05/25/17 17:46 Vomiting levofloxacin [From Levaquin] AdvReac Confusion Verified 05/25/17 17:46 Physical Exam Vitals: Vital Signs Temp Pulse Pulse Resp BP Pulse Ox 05/27/17 08:00 97.5 F L 64 16 106/49 92 L 05/27/17 03:40 98.6 F 86 16 102/61 92 L 05/26/17 23:40 97.5 F L 69 16 100/48 91 L 05/26/17 20:15 97.2 F L 62 18 115/88 93 L 05/26/17 16:00 97.3 F L 65 65 18 100/55 92 L 05/26/17 12:00 97.5 F L 65 71 20 120/55 95 05/26/17 10:20 76 20 92 L Intake and Output 05/26/17 05/27/17 05/27/17 22:59 06:59 14:59 Intake Total 400 600 240 Balance 400 600 240 Intake: Oral 400 600 240 Other: Voiding Method Toilet Toilet # Voids 1 1 Weight 89.9 kg General appearance: The patient is alert, oriented, in no acute distress. HET: Head is normocephalic and atraumatic. Pupils are equal and reactive. Oropharynx is clear without lesions. Neck: Supple without lymphadenopathy. Trachea midline. Heart: S1 S2. Regular rate and rhythm. Lungs: No crackles or wheezes are heard. Abdomen: Soft, nontender, nondistended with bowel sounds. No peritoneal signs. No palpable organomegaly or masses. Extremities: Normal skin color and turgor. No cyanosis, rash, ulceration, clubbing, or edema. Radial and pedal pulses are 2/4 bilaterally. Neurological: No focal deficits. Strength and sensation are grossly intact. Results CBC & Chem 7: 05/25/17 17:30 05/27/17 06:18 Labs: Abnormal Lab Results - Last 24 Hours (Table) 05/27/17 05/27/17 Range/Units 06:18 06:18 PT 16.9 H (9.0-12.0) sec INR 1.9 H (<1.2) Creatinine 1.23 H (0.52-1.04) mg/dL Assessment and Plan (1) Nausea & vomiting Narrative/Plan: Acute on chronic nausea vomiting 6 months duration EGD evaluation January 2016 for evaluation of nausea vomiting identified no evidence of gastroparesis or complicated peptic ulcer disease. Etiology of persistent nausea vomiting is unclear. 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 Code(s): D68.32 - HEMORRHAGIC DISORD D/T EXTRINSIC CIRCULATING ANTICOAGULANTS; T45.515A - ADVERSE EFFECT OF ANTICOAGULANTS, INITIAL ENCOUNTER SNOMED Code(s): 81812554 (3) History of mitral valve replacement Current Visit: Yes Status: Chronic Code(s): Z98.890 - OTHER SPECIFIED POSTPROCEDURAL STATES; Z95.2 - PRESENCE OF PROSTHETIC HEART VALVE SNOMED Code( s): 6310851285436 (4) History of ischemic cardiomyopathy Current Visit: Yes Status: Chronic Code(s): Z86.79 - PERSONAL HISTORY OF OTHER DISEASES OF THE CIRCULATORY SYSTEM SNOMED Code(s): 904099067 (5) History of atrial fibrillation Current Visit: Yes Status: Chronic Code(s): Z86.79 - PERSONAL HISTORY OF OTHER DISEASES OF THE CIRCULATORY SYSTEM SNOMED Code(s): 073438738 (6) Bradycardia Current Visit: Yes Status: Acute Code(s): R00.1 - BRADYCARDIA, UNSPECIFIED SNOMED Code(s): 05456504 Plan: 1. Dr. North recommends Outpatient EGD this can be performed as early as June 01 secondary to Coumadin coagulopathy; current INR 1.9. Anticoagulation needs to be held prior to procedure. We'll request cardiology to evaluate for cardiac clearance prior to EGD and to direct discontinuance of anticoagulation before discharge today. Recommend omeprazole 20 mg daily on discharge. Continue with Reglan 10 mg before meals 3 times a day on discharge as well. 2. EGD scheduled for 06/01/2017. The air battle manager has discussed the risks, benefits and alternative therapies for the above-mentioned procedure and for both sedation/analgesia as well as necessary blood product administration, if indicated, as they pertain to this patient. The patient has indicated understanding and acceptance of the risks and procedures discussed. Thank you for this kind referral and the opportunity to participate in the care of your patient. This consultation was discussed with Dr. North. The impression and plan of care have been directed as dictated.
[2017-05-27 12:30] VITALS: BP 102/59; RESP 17; TEMP 96.1
[2017-05-27 13:58] VITALS: PULSE 65
--- NOTE | 2017-05-27 14:52 | PN ---
PROGRESS NOTE This patient was primarily admitted with symptoms of persistent nausea and vomiting. Patient is supposed to undergo a repeat upper GI endoscopy. Patient is feeling better since she is on Reglan. Blood pressure is 102/59 mmHg. First and second heart sounds are normal. Lungs are clear to auscultation and percussion. Echocardiogram revealed severely impaired left ventricular systolic function. We will continue the patient on current medical treatment. Patient is going to be discharged home today. Patient is advised to stop her Coumadin 3 days prior to the procedure and advised to resume as soon as possible. It is to be understood that whenever we stop the anticoagulation in patients with a cardiomyopathy and atrial fibrillation, there is an increased risk of stroke and thrombosis, so benefit and the risk of bleeding versus stroke should be considered. MMODL / IJN: [id number] /
[2017-05-27] MEDS ORDERED: FUROSEMIDE 40 MG TAB PO SCH (16:00)
[2017-05-27] MEDS ORDERED: POTASSIUM CHLORIDE ORAL LIQUID 40 MEQ/30 ML CUP PO SCH (21:00)
--- NOTE | 2017-07-17 22:06 | DS ---
DISCHARGE SUMMARY ADMISSION DIAGNOSES: 1. Symptomatic bradycardia. 2. Hypotension. 3. Intractable vomiting. 4. History of ventricular tachycardia. 5. Paroxysmal atrial fibrillation. 6. History of coronary artery disease. 7. Mitral valve replacement, pacemaker and AICD. DISCHARGE DIAGNOSES: 1. Intractable nausea and vomiting, possibly severe gastroenteritis. 2. Symptomatic bradycardia. 3. Severe cardiomyopathy. BRIEF HISTORY: This patient is a 66-year-old female patient with history of ischemic cardiomyopathy and coronary artery disease who presented to the ED with a complaint of intractable nausea and vomiting, which is mostly clear copious clear thick secretions. The patient claimed that the vomiting was mainly large amount of emesis with small amounts of food in it. No weight loss. The patient did have an EGD done in January 2016. While in the hospital, the patient was found to be bradycardic. She was admitted for further evaluation. PAST MEDICAL HISTORY: 1. Coronary artery disease. 2. CHF. 3. History of angioplasty with stent placement, mitral valve replacement, pacemaker insertion, AICD. 4. History of osteoarthritis. 5. Chronic back pain. BRIEF HOSPITAL COURSE: The patient was admitted to telemetry. Cardiac enzymes and EKG was monitored. GI and Cardiology consultation was done. The patient was seen by GI. She was recommended an EGD as an outpatient secondary to the patient being on Coumadin for coagulopathy and INR of 1.9. The patient was started on omeprazole. She was recommended to take the same at home. She was also given oral Reglan to be taken 3 times a day, and the EGD was scheduled for 06/01/2017. The patient was also seen by Cardiology service. Her echocardiogram revealed severely impaired left ventricular systolic function. Cardiology recommended all current medications to be continued and also three days prior to EGD. The patient was explained of increased risk of stroke and thrombosis due to stopping the anticoagulation in a setting of severe cardiomyopathy. The patient understood the risks and benefits and was discharged in a stable condition. DISCHARGE MEDICATIONS: 1. Reglan 10 mg p.o. t.i.d. 2. Omeprazole 20 mg daily. 3. Xanax 0.5 mg b.i.d. p.r.n. 4. Aspirin 325 mg daily. 5. Enalapril 2.5 mg daily. 6. Lasix 40 mg b.i.d. 7. Loratadine 10 mg daily. 8. Lopressor 75 mg b.i.d. 9. Potassium chloride 16 mEq b.i.d. 10.Zantac 150 mg b.i.d. 11.Zocor 40 mg at bedtime. 12.Trintellix 10 mg p.o. daily. 13.Coumadin 2.5 mg alternating with 5 mg daily. 14.Percocet 10/325 1 tab q.6 hours p.r.n. PHYSICAL EXAMINATION: The patient's discharge examination: VITAL SIGNS: Temperature 98.6, pulse 71, respirations 16, blood pressure 144/68. HEENT: Atraumatic, normocephalic. Pupils equal and reactive to light. Extraocular movements intact. Buccal mucosa is fair. NECK: Supple. LUNGS: Clear to auscultate. No rales, rhonchi, or wheezes. HEART: Regular rate and rhythm without any murmurs or gallop rhythm. ABDOMEN: Soft, nontender and nondistended. Bowel sounds positive. EXTREMITIES: No edema, clubbing or cyanosis. NEUROLOGICAL EXAMINATION: Cranial nerves 2 through 12 grossly intact. No gross motor or sensory deficit. DISCHARGE DISPOSITION: The patient was discharged home in a stable condition. She was advised to follow up with PCP and with GI for further testing and evaluation. MMODL / IJN: [id number] /
== END 2017-05-27 15:21 | disposition home or self-care (01) ==
LOC: EC 17:03 → INTOOBSV 20:40 → 6SEL 20:40
PROVIDERS: ADMIT Family Medicine; ATTEND Family Medicine
DX: R00.1 Bradycardia, unspecified (principal); R94.31 Abnormal electrocardiogram [ECG] [EKG]; M19.90 Unspecified osteoarthritis, unspecified site; J44.9 Chronic obstructive pulmonary disease, unspecified; I11.0 Hypertensive heart disease with heart failure; I50.9 Heart failure, unspecified; F32.9 Major depressive disorder, single episode, unspecified; F17.200 Nicotine dependence, unspecified, uncomplicated; I25.5 Ischemic cardiomyopathy; E78.5 Hyperlipidemia, unspecified; I48.0 Paroxysmal atrial fibrillation; M54.9 Dorsalgia, unspecified; G89.29 Other chronic pain; I25.10 Atherosclerotic heart disease of native coronary artery without angina pectoris; E86.0 Dehydration; R11.2 Nausea with vomiting, unspecified; I95.9 Hypotension, unspecified; K64.8 Other hemorrhoids; R79.1 Abnormal coagulation profile; T45.515A Adverse effect of anticoagulants, initial encounter; Z95.5 Presence of coronary angioplasty implant and graft; Z79.899 Other long term (current) drug therapy; Z79.01 Long term (current) use of anticoagulants; Z79.82 Long term (current) use of aspirin; Z88.1 Allergy status to other antibiotic agents; Z88.5 Allergy status to narcotic agent; Z88.0 Allergy status to penicillin; Z95.2 Presence of prosthetic heart valve; Z95.810 Presence of automatic (implantable) cardiac defibrillator; Z82.49 Family history of ischemic heart disease and other diseases of the circulatory system; Z90.49 Acquired absence of other specified parts of digestive tract; E66.9 Obesity, unspecified; Z68.34 Body mass index [BMI] 34.0-34.9, adult; Z71.3 Dietary counseling and surveillance; Z86.79 Personal history of other diseases of the circulatory system
CPT/HCPCS: 96361 ×3; 96360; 99285; 36415; 93306; 80053; 80048 ×2; 82550; 82553; 83735 ×2; 84484; 85025; 85610 ×3; 85730; 71046; G0378 ×4

== ENCOUNTER 2017-06-01 10:34 | Day surgery (SDC) | payer MEDICARE, OTHER ==
[2017-05-31 11:58] VITALS: BMI 34.2
[~2017-06-01 10:34] MED LIST: LACTATED RINGERS 1,000 ML IV SCH
[2017-06-01] MEDS ORDERED: LIDOCAINE 1% 20 ML VIAL (10MG/ML) FOR IV START INTRADERMA ONE (11:10)
[2017-06-01 11:19] VITALS: TEMP 97.9
[2017-06-01 11:20] LABS: Glucose,Whole Blood 89 mg/dL (75-99)
[2017-06-01] MEDS ORDERED: GLYCOPYRROLATE 0.2 MG/ML 2 ML VIAL ONE (11:40)
[2017-06-01] MEDS ORDERED: PROPOFOL 10 MG/ML 20 ML VIAL IV ONE (11:40)
[2017-06-01] MEDS ORDERED: LIDOCAINE 1% INJ 10MG/ML (20 ML MDV) ONE (11:40)
--- NOTE | 2017-06-01 11:55 | P.PCN ---
Date of Procedure: 06/01/17 Procedure(s) Performed: BRIEF HISTORY: Patient is a 66-year-old, pleasant, white female, scheduled for an upper endoscopy as a part of evaluation of intermittent epigastric pain associated with nausea vomiting of 2 years duration.. PROCEDURE PERFORMED: Esophagogastroduodenoscopy with biopsy. PREOPERATIVE DIAGNOSIS: Intermittent epigastric pain, nausea vomiting of 2 years duration. IV sedation per anesthesia. PROCEDURE: After informed consent was obtained, the patient was brought into the endoscopy unit. IV sedation was administered by Anesthesia under continuous monitoring. Initially the Olympus GIF-140 video endoscope was inserted into the mouth. Esophagus intubated without any difficulty. It was gradually advanced into the stomach and duodenum and carefully examined. The bulb and the second part of the duodenum appeared normal. The scope at this time was withdrawn to the stomach, adequately insufflated with air, and upon careful examination, mucosa of the antrum had scattered erosions and biopsies were done from this area. The, body, cardia and the fundus appeared normal. The scope was then withdrawn into the esophagus. The GE junction was located at 42 cm from the incisors. The GE junction appeared very tight and the scope couldn't be advanced through this area only by applying moderate pressure. Ventolin the esophagus appeared dilated with retained liquids and the appearance was suspicious for esophageal achalasia. There were no erosions or ulcerations seen and the patient tolerated the procedure well. IMPRESSION: 1. Dilated esophagus with a tight lower esophageal sphincter sphincter suspicious for esophageal achalasia. 2. Erosive gastritis. RECOMMENDATIONS: The findings of this examination were discussed with the patient as well as a family. She was advised to follow with the biopsy results. She will be seen in the office in 2 weeks and will be scheduled for an esophageal manometry to evaluate for possibility of esophageal achalasia causing her symptoms.
[2017-06-01 12:08] VITALS: RESP 16
[2017-06-01 12:21] VITALS: BP 106/69; PULSE 85
== END 2017-06-01 12:48 | disposition home or self-care (01) ==
LOC: ORWHC2ENDO 10:34
PROVIDERS: ATTEND Internal Medicine Gastroenterology
DX: K29.50 Unspecified chronic gastritis without bleeding (principal); K20.0 Eosinophilic esophagitis; K22.8 Other specified diseases of esophagus; B96.81 Helicobacter pylori [H. pylori] as the cause of diseases classified elsewhere; I10 Essential (primary) hypertension; J44.9 Chronic obstructive pulmonary disease, unspecified; F32.9 Major depressive disorder, single episode, unspecified; K21.9 Gastro-esophageal reflux disease without esophagitis; Z88.1 Allergy status to other antibiotic agents; Z88.0 Allergy status to penicillin; Z88.5 Allergy status to narcotic agent; Z79.01 Long term (current) use of anticoagulants; Z79.891 Long term (current) use of opiate analgesic; Z79.82 Long term (current) use of aspirin; Z79.899 Other long term (current) drug therapy
CPT/HCPCS: 43239; 88305; 88312; 88342; J2001; J2704

== ENCOUNTER → 2017-08-31 | Outpatient (CLI) | payer MEDICARE, OTHER ==
--- NOTE | 2017-08-31 16:59 | US ---
EXAMINATION TYPE: US venous doppler duplex LE DATE OF EXAM: 08/31/2017 4:54 PM COMPARISON: NONE CLINICAL HISTORY: R60.0 edema. Left anterior leg swelling. Patient states she fell Tuesday and hit th e floor. No hx of blood clots, on blood thinners. SIDE PERFORMED: Bilateral TECHNIQUE: The lower extremity deep venous system is examined utilizing real time linear array sonog marcela with graded compression, doppler sonography and color-flow sonography. VESSELS IMAGED: External Iliac Vein (EIV) Common Femoral Vein Deep Femoral Vein Greater Saphenous Vein * Femoral Vein Popliteal Vein Small Saphenous Vein * Proximal Calf Veins (* superficial vessels) Grayscale, color doppler, spectral doppler imaging performed of the deep veins of the lower extremit ies. There is normal flow, compressibility, vascular waveforms. Right Leg: Negative for DVT Left Leg: Negative for DVT. Area of swelling scanned on anterior left leg. Complex nonvascular lesion seen = 4.9 x 2.6 x 2.0 cm IMPRESSION: No evidence for DVT. Complex nonvascular lesion.
--- NOTE | 2017-09-01 08:43 | XR ---
Left leg HISTORY: Trauma 2 days prior, swelling, bruising, contusion 2 views of the left leg Lucency present in the soft tissues is compatible with edema. Mild osteoarthritic change present in t he knee. Soft tissue swelling is noted. Bone mineralization and alignment are maintained. IMPRESSION: No fracture or dislocation.
== END | disposition home or self-care (01) ==
LOC: RADUSWWP 16:14
PROVIDERS: ATTEND Family Medicine
DX: S80.10XA Contusion of unspecified lower leg, initial encounter (principal); R60.0 Localized edema
CPT/HCPCS: 93970

== ENCOUNTER → 2017-10-27 | Outpatient (CLI) | payer MEDICARE, OTHER ==
[2017-10-27 16:14] LABS: Anisocytosis Slight; HCT 34.4 % (34.0-46.0); HGB 10.2 gm/dL (11.4-16.0); Hypochromasia Marked; MCH 22.9 pg (25.0-35.0); MCHC 29.6 g/dL (31.0-37.0); MCV 77.5 fL (80.0-100.0); Mean Platelet Volume 6.8; Microcytosis Slight; Platelet Count 350 k/uL (150-450); Poikilocytosis Slight; RBC 4.44 m/uL (3.80-5.40); RDW 17.2 % (11.5-15.5); WBC 7.9 k/uL (3.8-10.6)
[2017-10-27 16:39] LABS: ALT 25 U/L (9-52); AST 21 U/L (14-36); Albumin 4.2 g/dL (3.5-5.0); Alkaline Phosphatase 92 U/L (38-126); Anion Gap 10 mmol/L; Blood Urea Nitrogen 16 mg/dL (7-17); Calcium 9.5 mg/dL (8.4-10.2); Carbon Dioxide 31 mmol/L (22-30); Chloride 100 mmol/L (98-107); Cholesterol 177 mg/dL (<200); Digoxin <0.4 ng/mL; Glucose 93 mg/dL (74-99); HDL Cholesterol 31 mg/dL (40-60); LDL Cholesterol,Calculated 110 mg/dL (0-99); Potassium 4.1 mmol/L (3.5-5.1); Sodium 141 mmol/L (137-145); Total Bilirubin 0.3 mg/dL (0.2-1.3); Total Protein 6.9 g/dL (6.3-8.2); Triglycerides 180 mg/dL (<150)
== END | disposition home or self-care (01) ==
LOC: LABWHC1 15:42
PROVIDERS: ATTEND Internal Medicine Cardiovascular Disease
DX: E78.2 Mixed hyperlipidemia (principal); I50.22 Chronic systolic (congestive) heart failure
CPT/HCPCS: 36415; 80053; 80061; 80162; 85027

== ENCOUNTER 2017-11-23 10:03 | Day surgery (SDC) | payer MEDICARE, OTHER ==
[2017-11-21 11:01] VITALS: BMI 29.6
[2017-11-23] MEDS ORDERED: ALBUTEROL NEBULIZED 2.5 MG/3 ML INHALATION STA (10:40)
[2017-11-23] MEDS ORDERED: PROPOFOL 10 MG/ML 20 ML VIAL IV ONE (11:29)
[2017-11-23] MEDS ORDERED: LIDOCAINE 1% INJ 10MG/ML (20 ML MDV) ONE (11:29)
[2017-11-23] MEDS ORDERED: ONDANSETRON 4 MG/2 ML VIAL ONE (11:29)
--- NOTE | 2017-11-23 12:06 | P.PCN ---
Date of Procedure: 11/23/17 Procedure(s) Performed: BRIEF HISTORY: Patient is a 58-year-old pleasant white female, scheduled for an elective colonoscopy as a part of evaluation of iron deficiency anemia. PROCEDURE PERFORMED: Colonoscopy with snare polypectomy. PREOPERATIVE DIAGNOSIS: Iron deficiency anemia. IV sedation per Anesthesia. PROCEDURE: After informed consent was obtained, the patient, was brought into the endoscopy unit. IV sedation was administered by Anesthesia under continuous monitoring. Digital rectal examination was normal. Initially the Olympus CF- 160 flexible video colonoscope was then inserted in the rectum, gradually advanced into the sigmoid colon and further advancement was not possible. The scope was removed and a pediatric colonoscope was then introduced into the rectum and gradually advanced into the recovery with mild to moderate difficulty. Careful examination was performed as the scope was gradually being withdrawn. Ileocecal valve and the appendiceal orifice were visualized and appeared normal. Prep was extremely poor. Mucosa of the cecum, ascending colon , transverse colon, descending colon, sigmoid colon, and rectum appeared normal. In the distal rectum there were 2 polyps measuring 1 mL in size both of which were removed by snare polypectomy. Moderate sigmoid diverticula seen. Retroflexion was performed in the rectum and no lesions were seen. The patient tolerated the procedure well. IMPRESSION: 1 cm 2 rectal polyps status post polypectomy Moderate sigmoid diverticulosis RECOMMENDATIONS: Findings of this examination were discussed with the patient is well as her family. She was advised to follow with the biopsy results. She was advised to resume Coumadin tonight.
[2017-11-23 12:34] VITALS: BP 138/81; PULSE 61; RESP 18
== END 2017-11-23 13:59 | disposition home or self-care (01) ==
LOC: ORWHC2ENDO 10:03
PROVIDERS: ATTEND Internal Medicine Gastroenterology
DX: K62.1 Rectal polyp (principal); D50.9 Iron deficiency anemia, unspecified; K57.30 Diverticulosis of large intestine without perforation or abscess without bleeding; Z88.0 Allergy status to penicillin; J44.9 Chronic obstructive pulmonary disease, unspecified; I48.91 Unspecified atrial fibrillation; G89.29 Other chronic pain; I25.2 Old myocardial infarction; I11.0 Hypertensive heart disease with heart failure; I50.9 Heart failure, unspecified; I25.10 Atherosclerotic heart disease of native coronary artery without angina pectoris; Z88.5 Allergy status to narcotic agent; Z88.3 Allergy status to other anti-infective agents; Z79.82 Long term (current) use of aspirin; Z95.810 Presence of automatic (implantable) cardiac defibrillator; Z79.01 Long term (current) use of anticoagulants; Z79.899 Other long term (current) drug therapy
CPT/HCPCS: 94640; 88305; 45385; J2405; J2001; J2704

== ENCOUNTER 2019-04-24 20:48 | Inpatient (IN) | payer MEDICARE, OTHER ==
[2019-04-24] MEDS ORDERED: SODIUM CHLORIDE 0.9% 1,000 ML IV STA ×2 (20:58)
--- NOTE | 2019-04-24 21:00 | ED ---
Female Urogenital HPI - General Chief complaint: Urogenital Stated complaint: Kidney/Bladder infection Time Seen by Provider: 04/24/19 20:56 Source: patient Mode of arrival: ambulatory Limitations: no limitations - Related Data Home Medications Medication Instructions Recorded Confirmed Furosemide [Lasix] 40 mg PO BID 02/19/16 11/21/17 Potassium Chloride 16 meq PO BID 02/19/16 11/21/17 Simvastatin [Zocor] 40 mg PO HS 02/19/16 11/21/17 Warfarin [Coumadin] 2.5 mg PO TH 02/19/16 11/21/17 Warfarin [Coumadin] 5 mg PO SUMOTUWEFRSA 02/19/16 11/21/17 Aspirin EC [Ecotrin] 325 mg PO DAILY 05/25/17 11/21/17 Loratadine 10 mg PO DAILY 05/25/17 11/21/17 Metoprolol Tartrate [Lopressor] 75 mg PO BID 05/25/17 11/21/17 Ranitidine HCl 150 mg PO QAM 05/25/17 11/21/17 Albuterol Inhaler [Ventolin Hfa 1 - 2 puff INHALATION Q6HR PRN 05/31/17 11/23/17 Inhaler] Albuterol Nebulized [Ventolin 2.5 mg INHALATION Q6H PRN 05/31/17 11/21/17 Nebulized] Ferrous Sulfate [Iron] 325 mg PO DAILY 11/21/17 11/21/17 PARoxetine HCL [Paxil] 40 mg PO QAM 11/21/17 11/21/17 oxyCODONE-APAP 10-325MG [Percocet 1 tab PO QID 11/21/17 11/23/17 10-325 mg] traZODone HCL [Desyrel] 50 mg PO HS 11/21/17 11/21/17 Allergies Allergy/AdvReac Type Severity Reaction Status Date / Time hydromorphone [From Dilaudid] Allergy Unknown Verified 11/23/17 10:26 levofloxacin [From Levaquin] Allergy Anaphylaxis Verified 11/23/17 10:26 (went into a coma) Penicillins Allergy Rash/Hives Verified 11/23/17 10:26 codeine AdvReac Nausea & Verified 11/23/17 10:26 Vomiting Review of Systems ROS Statement: Those systems with pertinent positive or pertinent negative responses have been documented in the HPI. ROS Other: All systems not noted in ROS Statement are negative. Past Medical History Past Medical History: Atrial Fibrillation, Asthma, Heart Failure, COPD, GI Bleed, Myocardial Infarction ([place]), Osteoarthritis (OA), Pneumonia Additional Past Medical History / Comment(s): N,V,hypotensive, chronic back pain Last Myocardial Infarction Date:: unk History of Any Multi-Drug Resistant Organisms: None Reported Past Surgical History: AICD, Section, Heart Catheterization With Stent, Pacemaker, Tubal Ligation Additional Past Surgical History / Comment(s): mitral valve replacement, tubal ligation, Past Anesthesia/Blood Transfusion Reactions: No Reported Reaction Date of Last Stent Placement:: unk Type of Cardiac Device: Permanent Pacemaker, AICD Device Placement Date:: 2014 Past Psychological History: Depression Smoking Status: Current every day smoker - Past Family History Mother Additional Family Medical History / Comment(s): MOM IN MVA ACCIDENT Father Family Medical History: Coronary Artery Disease (CAD) Additional Family Medical History / Comment(s): CARDIAC DISEASE General Exam Limitations: no limitations Course Vital Signs 04/24/19 04/24/19 04/24/19 20:49 21:00 21:26 Temperature 97.6 F Pulse Rate 61 51 L Respiratory 18 20 Rate Blood Pressure 135/67 O2 Sat by Pulse 96 Oximetry 04/24/19 21:36 Temperature Pulse Rate 59 L Respiratory Rate Blood Pressure O2 Sat by Pulse Oximetry Medical Decision Making - Lab Data Result diagrams: 04/24/19 21:22 04/24/19 21:22 Lab Results 04/24/19 04/24/19 04/24/19 Range/Units 21:05 21:22 21:22 WBC 11.1 H (3.8-10.6) k/uL RBC 4.60 (3.80-5.40) m/uL Hgb 14.5 (11.4-16.0) gm/dL Hct 45.1 (34.0-46.0) % MCV 98.0 (80.0-100.0) fL MCH 31.5 (25.0-35.0) pg MCHC 32.2 (31.0-37.0) g/dL RDW 13.5 (11.5-15.5) % Plt Count 232 (150-450) k/uL Neutrophils % 79 % Lymphocytes % 13 % Monocytes % 4 % Eosinophils % 2 % Basophils % 2 % Neutrophils # 8.7 H (1.3-7.7) k/uL Lymphocytes # 1.5 (1.0-4.8) k/uL Monocytes # 0.4 (0-1.0) k/uL Eosinophils # 0.2 (0-0.7) k/uL Basophils # 0.2 (0-0.2) k/uL PT (9.0-12.0) sec INR (<1.2) APTT (22.0-30.0) sec Sodium 142 (137-145) mmol/L Potassium 4.1 (3.5-5.1) mmol/L Chloride 105 (98-107) mmol/L Carbon Dioxide 29 (22-30) mmol/L Anion Gap 8 mmol/L BUN 9 (7-17) mg/dL Creatinine 0.89 (0.52-1.04) mg/dL Est GFR (CKD-EPI)AfAm 76 (>60 ml/min/1.73 sqM) Est GFR (CKD-EPI)NonAf 66 (>60 ml/min/1.73 sqM) Glucose 124 H (74-99) mg/dL Plasma Lactic Acid Suleman (0.7-2.0) mmol/L Calcium 9.4 (8.4-10.2) mg/dL Phosphorus 3.0 (2.5-4.5) mg/dL Magnesium 1.9 (1.6-2.3) mg/dL Total Bilirubin 0.8 (0.2-1.3) mg/dL AST 25 (14-36) U/L ALT 13 (4-34) U/L Alkaline Phosphatase 88 (38-126) U/L Troponin I (0.000-0.034) ng/mL Total Protein 7.4 (6.3-8.2) g/dL Albumin 4.4 (3.5-5.0) g/dL Urine Color Yellow Urine Appearance Cloudy H (Clear) Urine pH 6.0 (5.0-8.0) Ur Specific [place] 1.020 (1.001-1.035) Urine Protein 2+ H (Negative) Urine Glucose (UA) Negative (Negative) Urine Ketones Negative (Negative) Urine Blood Moderate H (Negative) Urine Nitrite Negative (Negative) Urine Bilirubin Negative (Negative) Urine Urobilinogen <2.0 (<2.0) mg/dL Ur Leukocyte Esterase Small H (Negative) Urine RBC 64 H (0-5) /hpf Urine WBC 9 H (0-5) /hpf Ur Squamous Epith Cells 4 (0-4) /hpf Urine Bacteria Rare H (None) /hpf Hyaline Casts 4 H (0-2) /lpf Urine Mucus Few H (None) /hpf 04/24/19 04/24/19 04/24/19 Range/Units 21:22 21:22 21:22 WBC (3.8-10.6) k/uL RBC (3.80-5.40) m/uL Hgb (11.4-16.0) gm/dL Hct (34.0-46.0) % MCV (80.0-100.0) fL MCH (25.0-35.0) pg MCHC (31.0-37.0) g/dL RDW (11.5-15.5) % Plt Count (150-450) k/uL Neutrophils % % Lymphocytes % % Monocytes % % Eosinophils % % Basophils % % Neutrophils # (1.3-7.7) k/uL Lymphocytes # (1.0-4.8) k/uL Monocytes # (0-1.0) k/uL Eosinophils # (0-0.7) k/uL Basophils # (0-0.2) k/uL PT 15.2 H (9.0-12.0) sec INR 1.5 H (<1.2) APTT 33.8 H (22.0-30.0) sec Sodium (137-145) mmol/L Potassium (3.5-5.1) mmol/L Chloride (98-107) mmol/L Carbon Dioxide (22-30) mmol/L Anion Gap mmol/L BUN (7-17) mg/dL Creatinine (0.52-1.04) mg/dL Est GFR (CKD-EPI)AfAm (>60 ml/min/1.73 sqM) Est GFR (CKD-EPI)NonAf (>60 ml/min/1.73 sqM) Glucose (74-99) mg/dL Plasma Lactic Acid Suleman 2.2 H* (0.7-2.0) mmol/L Calcium (8.4-10.2) mg/dL Phosphorus (2.5-4.5) mg/dL Magnesium (1.6-2.3) mg/dL Total Bilirubin (0.2-1.3) mg/dL AST (14-36) U/L ALT (4-34) U/L Alkaline Phosphatase (38-126) U/L Troponin I <0.012 (0.000-0.034) ng/mL Total Protein (6.3-8.2) g/dL Albumin (3.5-5.0) g/dL Urine Color Urine Appearance (Clear) Urine pH (5.0-8.0) Ur Specific [place] (1.001-1.035) Urine Protein (Negative) Urine Glucose (UA) (Negative) Urine Ketones (Negative) Urine Blood (Negative) Urine Nitrite (Negative) Urine Bilirubin (Negative) Urine Urobilinogen (<2.0) mg/dL Ur Leukocyte Esterase (Negative) Urine RBC (0-5) /hpf Urine WBC (0-5) /hpf Ur Squamous Epith Cells (0-4) /hpf Urine Bacteria (None) /hpf Hyaline Casts (0-2) /lpf Urine Mucus (None) /hpf - EKG Data -: EKG Interpreted by Me (EKG shows sinus rhythm occasionally paced atrial paced 62 8 by mouth 180, Q) Disposition Clinical Impression: Nausea & vomiting, Urinary tract infection, Community acquired pneumonia, Acute exacerbation of COPD with asthma Disposition: ADMITTED IP TO THIS HOSP Condition: Fair Is patient prescribed a controlled substance at d/c from ED?: No Referrals: Priyank Perez MD [Primary Care Provider] - 1-2 days
[2019-04-24] MEDS ORDERED: methylPREDNISolone SOD SUCCI 125 MG/2 ML VIAL IV STA (21:12)
[2019-04-24] MEDS ORDERED: IPRATROPIUM-ALBUTEROL 3 ML NEB INHALATION STA (21:12)
[2019-04-24 21:16] LABS: Appearance,Urine Cloudy (Clear); Bacteria,Urine Rare /hpf; Bilirubin,Urine Negative (Negative); Blood,Urine Moderate (Negative); Color,Urine Yellow; Glucose,Urine (UA) Negative (Negative); Hyaline Casts,Urine 4 /lpf (0-2); Ketones,Urine Negative (Negative); Leukocyte Esterase,Urine Small (Negative); Mucus,Urine Few /hpf; Nitrite,Urine Negative (Negative); Protein,Urine 2+ (Negative); RBC,Urine 64 /hpf (0-5); Squamous Epithelial Cell,Urine 4 /hpf (0-4); Urobilinogen,Urine <2.0 mg/dL (<2.0); WBC,Urine 9 /hpf (0-5)
[2019-04-24 21:33] LABS: Basophils # (A) 0.2 k/uL (0-0.2); Basophils % (A) 2 %; Eosinophils # (A) 0.2 k/uL (0-0.7); Eosinophils % (A) 2 %; HCT 45.1 % (34.0-46.0); HGB 14.5 gm/dL (11.4-16.0); Lymphocytes # (A) 1.5 k/uL (1.0-4.8); Lymphocytes % (A) 13 %; MCH 31.5 pg (25.0-35.0); MCHC 32.2 g/dL (31.0-37.0); Mean Platelet Volume 7.5; Monocytes # (A) 0.4 k/uL (0-1.0); Monocytes % (A) 4 %; Neutrophils # (A) 8.7 k/uL (1.3-7.7); Neutrophils % (A) 79 %; Platelet Count 232 k/uL (150-450); RDW 13.5 % (11.5-15.5); WBC 11.1 k/uL (3.8-10.6)
[2019-04-24 21:42] LABS: INR 1.5 (<1.2); Partial Thromboplastin Time 33.8 sec (22.0-30.0); Prothrombin Time 15.2 sec (9.0-12.0)
[2019-04-24 21:46] LABS: Albumin 4.4 g/dL (3.5-5.0); Calcium 9.4 mg/dL (8.4-10.2); Magnesium 1.9 mg/dL (1.6-2.3); Potassium 4.1 mmol/L (3.5-5.1); Total Bilirubin 0.8 mg/dL (0.2-1.3); Total Protein 7.4 g/dL (6.3-8.2)
--- NOTE | 2019-04-24 22:04 | XR ---
EXAMINATION TYPE: XR chest 2V DATE OF EXAM: 04/24/2019 COMPARISON: 05/25/2017 HISTORY: Chest pain TECHNIQUE: 2 views FINDINGS: There are sternal wires. There is left axillary pacemaker. There is some blunting of right costophrenic angle. There is bilateral lower lobe mild infiltrates and atelectasis. This is worse on the right side. There is no obvious heart failure. IMPRESSION: Mild infiltrate and atelectasis mainly in the right lower lobe with small pleural effusio n increased compared to last exam. No obvious heart failure.
--- NOTE | 2019-04-24 22:05 | CT ---
EXAMINATION TYPE: CT brain wo con DATE OF EXAM: 04/24/2019 COMPARISON: None HISTORY: Hallucinations CT DLP: 1099.4 mGycm Automated exposure control for dose reduction was used. There is mild cerebral cortical atrophy. There is no mass effect nor midline shift. There is no sign of intracranial hemorrhage. Calvarium is intact. IMPRESSION: Mild atrophy. No acute intracranial abnormality.
[2019-04-24] MEDS ORDERED: PNEUMONIA PROTOCOL UTILIZED 1 EACH MISC PO PRN (23:05)
[2019-04-24] MEDS ORDERED: IPRATROPIUM-ALBUTEROL 3 ML NEB INHALATION PRN (23:05)
[2019-04-24] MEDS ORDERED: AZITHROMYCIN 500 MG in SODIUM CHLORIDE 0.9% 250 ML IVPB STA (23:05)
[2019-04-24] MEDS: SODIUM CHLORIDE 0.9% 1,000 ML IV SCH (23:51)
--- NOTE | 2019-04-25 07:21 | XR ---
EXAMINATION TYPE: XR chest 2V DATE OF EXAM: 04/25/2019 COMPARISON: 04/24/2019 HISTORY: Shortness of breath TECHNIQUE: Frontal and lateral views of the chest are obtained. FINDINGS: Scattered senescent parenchymal changes noted. Hyperinflation compatible with COPD. Persistent right lower lobe infiltrate. Heart size is stable. Mediastinal structures are stable and grossly unremarkable. No evidence for hilar prominence. Degenerative changes dorsal spine. IMPRESSION: 1. Stable chest.
[2019-04-25] MEDS: ALBUTEROL NEBULIZED 2.5 MG/3 ML INHALATION SCH ×4 (08:39→21:16)
[2019-04-25] MEDS ORDERED: AZITHROMYCIN 500 MG TAB PO SCH (09:00)
[2019-04-25] MEDS: ENOXAPARIN 40 MG/0.4 ML SYRINGE SQ SCH (09:40)
--- NOTE | 2019-04-25 15:18 | P.HPIM ---
History of Present Illness 68-year-old female was admitted for urinary tract infection evaluated the patient patient is drowsy and sleepy is barely able to answer my questions but did answer my questions and patient when questioned it complain of suprapubic pa in denied any dysuria or increased urinary frequency, patient was also comparing of generalized body aches and the subjective fevers at home no documented fever here. Patient did have leukocytosis urine is bit abnormal completely cannot rule out a urinary tract infection although patient was having shortness of breath and wheezing on exam continues to smoke. Patient appears to have had vital valve replacement I tried to look up the previous dictations it was not mentioned if patient had a mechanical valve replacement will have to figure it out as patient is on Coumadin and INR is therapeutic at 1.5. Patient doesn't have any loud mechanical valve sounds. Patient doesn't know and she doesn't have a card. Does have history of COPD he doesn't wear oxygen at home. Review of Systems REVIEW OF SYSTEMS: CONSTITUTIONAL: No fever, no malaise, no fatigue. HEENT: No recent visual problems or hearing problems. Denied any sore throat. CARDIOVASCULAR: No chest pain, orthopnea, PND, no palpitations, no syncope. PULMONARY: no hemoptysis. GASTROINTESTINAL: No diarrhea, no nausea, no vomiting, no abdominal pain. NEUROLOGICAL: No headaches, no weakness, no numbness. HEMATOLOGICAL: Denies any bleeding or petechiae. GENITOURINARY: As mentioned in HPI MUSCULOSKELETAL/RHEUMATOLOGICAL: Denies any joint pain, swelling, or any muscle pain. ENDOCRINE: Denies any polyuria or polydipsia. The rest of the 14-point review of systems is negative. Past Medical History Past Medical History: Atrial Fibrillation, Asthma, Heart Failure, COPD, GI Bleed, Myocardial Infarction ([place]), Osteoarthritis (OA), Pneumonia Additional Past Medical History / Comment(s): N,V,hypotensive, chronic back pain Last Myocardial Infarction Date:: unk History of Any Multi-Drug Resistant Organisms: None Reported Past Surgical History: AICD, Section, Heart Catheterization With Stent, Pacemaker, Tubal Ligation Additional Past Surgical History / Comment(s): mitral valve replacement, tubal ligation, Past Anesthesia/Blood Transfusion Reactions: No Reported Reaction Date of Last Stent Placement:: unk Type of Cardiac Device: Permanent Pacemaker, AICD Device Placement Date:: 2014 Past Psychological History: Depression Smoking Status: Current every day smoker Past Alcohol Use History: None Reported Additional Past Alcohol Use History / Comment(s): <1ppd,started smoking at age 10 Past Drug Use History: None Reported - Past Family History Mother Additional Family Medical History / Comment(s): MOM IN MVA ACCIDENT Father Family Medical History: Coronary Artery Disease (CAD) Additional Family Medical History / Comment(s): CARDIAC DISEASE Medications and Allergies Home Medications Medication Instructions Recorded Confirmed Type Furosemide [Lasix] 40 mg PO BID 02/19/16 11/21/17 History Potassium Chloride 16 meq PO BID 02/19/16 11/21/17 History Simvastatin [Zocor] 40 mg PO HS 02/19/16 11/21/17 History Warfarin [Coumadin] 2.5 mg PO TH 02/19/16 11/21/17 History Warfarin [Coumadin] 5 mg PO SUMOTUWEFRSA 02/19/16 11/21/17 History Aspirin EC [Ecotrin] 325 mg PO DAILY 05/25/17 11/21/17 History Loratadine 10 mg PO DAILY 05/25/17 11/21/17 History Metoprolol Tartrate [Lopressor] 75 mg PO BID 05/25/17 11/21/17 History Ranitidine HCl 150 mg PO QAM 05/25/17 11/21/17 History Albuterol Inhaler [Ventolin Hfa 1 - 2 puff INHALATION Q6HR PRN 05/31/17 11/23/17 History Inhaler] Albuterol Nebulized [Ventolin 2.5 mg INHALATION Q6H PRN 05/31/17 11/21/17 History Nebulized] Ferrous Sulfate [Iron] 325 mg PO DAILY 11/21/17 11/21/17 History PARoxetine HCL [Paxil] 40 mg PO QAM 11/21/17 11/21/17 History oxyCODONE-APAP 10-325MG [Percocet 1 tab PO QID 11/21/17 11/23/17 History 10-325 mg] traZODone HCL [Desyrel] 50 mg PO HS 11/21/17 11/21/17 History Allergies Allergy/AdvReac Type Severity Reaction Status Date / Time hydromorphone [From Dilaudid] Allergy Unknown Verified 04/24/19 23:12 levofloxacin [From Levaquin] Allergy Anaphylaxis Verified 04/24/19 23:12 (went into a coma) Penicillins Allergy Rash/Hives Verified 04/24/19 23:12 codeine AdvReac Nausea & Verified 04/24/19 23:12 Vomiting Physical Exam Vitals: Vital Signs Temp Pulse Pulse Resp BP BP Pulse Ox 04/25/19 11:50 68 04/25/19 11:45 96.1 F L 58 L 20 170/75 96 04/25/19 11:38 66 04/25/19 08:50 64 04/25/19 08:39 62 04/25/19 08:20 58 L 20 04/25/19 05:16 97.5 F L 61 20 143/85 95 04/25/19 00:22 98.0 F 20 139/83 93 L 04/24/19 23:51 67 19 139/83 95 04/24/19 21:36 59 L 04/24/19 21:26 51 L 04/24/19 21:00 20 04/24/19 20:49 97.6 F 61 18 135/67 96 Intake and Output 04/25/19 04/25/19 04/25/19 06:59 14:59 22:59 Intake Total 590 240 Balance 590 240 Intake: Oral 590 240 Other: Voiding Method Bedside Commode Bedside Commode # Voids 3 1 Weight 88.904 kg PHYSICAL EXAMINATION: GENERAL: Patient is drowsy able to answer my question, not in any acute distress. Well developed, well nourished. HEENT: Pupils are round and equally reacting to light. EOMI. No scleral icterus. No conjunctival pallor. Normocephalic, atraumatic. No pharyngeal erythema. No thyromegaly. CARDIOVASCULAR: S1 and S2 present. No murmurs, rubs, or gallops. PULMONARY: Expiratory wheezing is air entry into bilateral lung bryson. ABDOMEN: Soft, nontender, nondistended, normoactive bowel sounds. No palpable organomegaly. MUSCULOSKELETAL: No joint swelling or deformity. EXTREMITIES: No cyanosis, clubbing, or pedal edema. NEUROLOGICAL: Gross neurological examination did not reveal any focal deficits. SKIN: No rashes. Results CBC & Chem 7: 04/24/19 21:22 04/24/19 21:22 Labs: Abnormal Lab Results - Last 24 Hours (Table) 12/04/24/19 04/24/19 Range/Units 21:05 21:22 21:22 WBC 11.1 H (3.8-10.6) k/uL Neutrophils # 8.7 H (1.3-7.7) k/uL PT (9.0-12.0) sec INR (<1.2) APTT (22.0-30.0) sec Glucose 124 H (74-99) mg/dL Plasma Lactic Acid Suleman (0.7-2.0) mmol/L Urine Appearance Cloudy H (Clear) Urine Protein 2+ H (Negative) Urine Blood Moderate H (Negative) Ur Leukocyte Esterase Small H (Negative) Urine RBC 64 H (0-5) /hpf Urine WBC 9 H (0-5) /hpf Urine Bacteria Rare H (None) /hpf Hyaline Casts 4 H (0-2) /lpf Urine Mucus Few H (None) /hpf 04/24/19 04/24/19 Range/Units 21:22 21:22 WBC (3.8-10.6) k/uL Neutrophils # (1.3-7.7) k/uL PT 15.2 H (9.0-12.0) sec INR 1.5 H (<1.2) APTT 33.8 H (22.0-30.0) sec Glucose (74-99) mg/dL Plasma Lactic Acid Suleman 2.2 H* (0.7-2.0) mmol/L Urine Appearance (Clear) Urine Protein (Negative) Urine Blood (Negative) Ur Leukocyte Esterase (Negative) Urine RBC (0-5) /hpf Urine WBC (0-5) /hpf Urine Bacteria (None) /hpf Hyaline Casts (0-2) /lpf Urine Mucus (None) /hpf Thrombosis Risk Factor Assmnt - Choose All That Apply Any of the Below Risk Factors Present?: Yes Each Factor Represents 1 point: Abnormal pulmonary function (COPD), Obesity (BMI >25) Other Risk Factors: Yes Each Risk Factor Represents 2 Points: Age 61-74 years Other congenital or acquired thrombophilia - If yes, enter type in comment: No Thrombosis Risk Factor Assessment Total Risk Factor Score: 4 Thrombosis Risk Factor Assessment Level: Moderate Risk Assessment and Plan Plan: Clarence of breath: Secondary to COPD exacerbation patient was started on systemic steroids inhalational treatments counseling regarding the smoking cessation was provided. -Possiblity of urinary tract infection which I cannot rule out because of which I'll continue with Rocephin for now elevated urine cultures -Congestive heart failure chronic systolic dysfunction year for that. Percent patient has an AICD IV fluids will be discontinued patient's lactic acidosis resolved patient will be started on the hit her oral Lasix patient is presently euvolemic. -Mitral valve replacement unsure whether it's mechanical valve patient will be continued on 5 mg of Coumadin INR will be obtained tomorrow again patient asymptomatic cannot today is she of atrial fibrillation presently rate cont rolled her heart rate is in 50s as of which am: Holding on metoprolol will be restarted back at a lower dose. -Coronary artery disease -Continued nicotine use: Counseling was provided
[2019-04-25] MEDS: SODIUM CHLORIDE 0.9% 1,000 ML IV SCH (17:24)
[2019-04-25] MEDS: oxyCODONE-APAP 10-325MG 1 EACH TAB PO PRN (17:32)
[2019-04-25] MEDS: predniSONE 20 MG TAB PO SCH (17:33)
[2019-04-25] MEDS: FUROSEMIDE 40 MG TAB PO SCH (17:33)
[2019-04-25] MEDS ORDERED: WARFARIN 3 MG TAB PO ONE (18:00)
[2019-04-25] MEDS ORDERED: WARFARIN 2.5 MG TAB PO ONE (18:00)
[2019-04-25] MEDS: ATORVASTATIN 20 MG TAB PO SCH (20:59)
[2019-04-25] MEDS: FAMOTIDINE 20 MG TAB PO SCH (21:00)
[2019-04-25] MEDS: METOPROLOL TARTRATE 50 MG TAB PO SCH (21:00)
[2019-04-25] MEDS ORDERED: oxyCODONE-APAP 10-325MG 1 EACH TAB PO ONE (22:56)
[2019-04-26] MEDS: FAMOTIDINE 20 MG TAB PO SCH ×2 (08:10→21:39)
[2019-04-26] MEDS: METOPROLOL TARTRATE 50 MG TAB PO SCH ×2 (08:10→21:39)
[2019-04-26] MEDS: FUROSEMIDE 40 MG TAB PO SCH ×2 (08:10→18:53)
[2019-04-26] MEDS: predniSONE 20 MG TAB PO SCH (08:10)
[2019-04-26] MEDS: ALBUTEROL NEBULIZED 2.5 MG/3 ML INHALATION SCH ×4 (08:12→21:04)
[2019-04-26] MEDS ORDERED: WARFARIN 5 MG TAB PO SCH (09:00)
[2019-04-26] MEDS ORDERED: FAMOTIDINE 20 MG TAB PO SCH (09:00)
[2019-04-26 09:31] LABS: INR 1.6 (<1.2); Prothrombin Time 16.2 sec (9.0-12.0)
[2019-04-26] MEDS: ENOXAPARIN 40 MG/0.4 ML SYRINGE SQ SCH (10:05)
[2019-04-26] MEDS: PARoxetine 20 MG TAB PO SCH (10:05)
--- NOTE | 2019-04-26 14:50 | P.PN ---
Subjective 68-year-old admitted for COPD exacerbation and possibility of urinary tract infection which I cannot completely rule out. Patient is doing much better today and the patient is still wheezing on exam. Constitutional: Denied any fatigue denied any fever. Cardio vascular: denied any chest pain, palpitations Gastrointestinal denied any nausea vomiting Pulmonary: As mentioned above Neurologic denied any new focal deficits All inpatient medications were reviewed and appropriate changes in these medications as dictated in the interval history and assessment and plan. Objective - Vital Signs Vital signs: Vital Signs Temp 97.8 F 04/26/19 12:07 Pulse 78 04/26/19 12:07 Resp 18 04/26/19 12:07 BP 167/90 04/26/19 12:07 Pulse Ox 94 L 04/26/19 12:07 Intake & Output 04/25/19 04/26/19 04/26/19 18:59 06:59 18:59 Intake Total 240 Balance 240 Intake: Oral 240 Other: Voiding Method Bedside Commode Bedside Commode # Voids 1 1 - Exam PHYSICAL EXAMINATION: GENERAL: The patient is alert and oriented x3, not in any acute distress. Well developed, well nourished. HEENT: Pupils are round and equally reacting to light. EOMI. No scleral icterus. No conjunctival pallor. Normocephalic, atraumatic. No pharyngeal erythema. No thyromegaly. CARDIOVASCULAR: S1 and S2 present. No murmurs, rubs, or gallops. PULMONARY: Patient is wheezing on exam. ABDOMEN: Soft, nontender, nondistended, normoactive bowel sounds. No palpable organomegaly. MUSCULOSKELETAL: No joint swelling or deformity. EXTREMITIES: No cyanosis, clubbing, or pedal edema. NEUROLOGICAL: Gross neurological examination did not reveal any focal deficits. SKIN: No rashes. - Labs CBC & Chem 7: 04/24/19 21:22 04/24/19 21:22 Labs: Abnormal Lab Results - Last 24 Hours (Table) 04/26/19 Range/Units 08:29 PT 16.2 H (9.0-12.0) sec INR 1.6 H (<1.2) Assessment and Plan Plan: Shortness of breath: Secondary to COPD exacerbation patient was started on systemic steroids inhalational treatments counseling regarding the smoking cessation was provided. -Possiblity of urinary tract infection which I cannot rule out because of which I'll continue with Rocephin for now, awaiting urine cultures -Congestive heart failure chronic systolic dysfunction year for that. Percent patient has an AICD IV fluids will be discontinued patient's lactic acidosis resolved patient is on the hit her oral Lasix patient is presently euvolemic. -Mitral valve replacement some therapy cannot but will still continue the same dose of Coumadin considering that patient is on systemic steroids her INR is expected to go up -Coronary artery disease -Continued nicotine use: Counseling was provided
[2019-04-26] MEDS ORDERED: WARFARIN 5 MG TAB PO ONE (18:00)
[2019-04-26] MEDS: ATORVASTATIN 20 MG TAB PO SCH (21:39)
[2019-04-27] MEDS: ALBUTEROL NEBULIZED 2.5 MG/3 ML INHALATION SCH ×4 (08:23→21:32)
[2019-04-27] MEDS: METOPROLOL TARTRATE 50 MG TAB PO SCH ×2 (09:16→22:40)
[2019-04-27] MEDS: predniSONE 20 MG TAB PO SCH (09:16)
[2019-04-27] MEDS: FUROSEMIDE 40 MG TAB PO SCH ×2 (09:16→17:56)
[2019-04-27] MEDS: PARoxetine 20 MG TAB PO SCH (09:16)
[2019-04-27] MEDS: ENOXAPARIN 40 MG/0.4 ML SYRINGE SQ SCH (09:16)
[2019-04-27] MEDS: FAMOTIDINE 20 MG TAB PO SCH (09:25)
[2019-04-27 10:06] LABS: INR 1.7 (<1.2); Prothrombin Time 16.5 sec (9.0-12.0)
[2019-04-27 10:14] LABS: HCT 43.7 % (34.0-46.0); HGB 14.5 gm/dL (11.4-16.0); MCH 32.3 pg (25.0-35.0); MCHC 33.2 g/dL (31.0-37.0); MCV 97.4 fL (80.0-100.0); Mean Platelet Volume 8.4; Platelet Count 226 k/uL (150-450); RBC 4.49 m/uL (3.80-5.40); RDW 13.5 % (11.5-15.5); WBC 10.8 k/uL (3.8-10.6)
[2019-04-27 10:47] LABS: Calcium 9.4 mg/dL (8.4-10.2); Potassium 3.7 mmol/L (3.5-5.1)
--- NOTE | 2019-04-27 17:43 | P.PN ---
Subjective 68-year-old admitted for COPD exacerbation and possibility of urinary tract infection which I cannot completely rule out. Patient is doing much better today and the patient is still wheezing on exam. 04/27/2019 Patient is admitted for COPD exacerbation patient is being treated for UTI as well, I don't have any urine cultures available. Patient is saturated to 87% or less upon ablation patient still has significant wheezing we'll keep her here today we'll change her steroids to IV today and if she improves patient will be discharged tomorrow if not patient will be discharged on oxygen on weaning doses of steroids hopefully she will not require oxygen tomorrow patient will be discharged on 3-4 days of Ceftin find it twice a day upon discharge. Constitutional: Denied any fatigue denied any fever. Cardio vascular: denied any chest pain, palpitations Gastrointestinal denied any nausea vomiting Pulmonary: As mentioned above Neurologic denied any new focal deficits All inpatient medications were reviewed and appropriate changes in these medications as dictated in the interval history and assessment and plan. Objective - Vital Signs Vital signs: Vital Signs Temp 98 F 04/27/19 11:34 Pulse 74 04/27/19 17:01 Resp 18 04/27/19 11:34 BP 144/77 04/27/19 11:34 Pulse Ox 99 04/27/19 11:34 Intake & Output 04/26/19 04/27/19 04/27/19 18:59 06:59 18:59 Intake Total 240 Balance 240 Intake: Oral 240 Other: Voiding Method Bedside Commode Toilet Toilet # Voids 1 4 4 - Exam PHYSICAL EXAMINATION: GENERAL: The patient is alert and oriented x3, not in any acute distress. Well developed, well nourished. HEENT: Pupils are round and equally reacting to light. EOMI. No scleral icterus. No conjunctival pallor. Normocephalic, atraumatic. No pharyngeal erythema. No thyromegaly. CARDIOVASCULAR: S1 and S2 present. No murmurs, rubs, or gallops. PULMONARY: Patient is wheezing on exam which is significant and expiratory good air entry into bilateral lung bryson. ABDOMEN: Soft, nontender, nondistended, normoactive bowel sounds. No palpable organomegaly. MUSCULOSKELETAL: No joint swelling or deformity. EXTREMITIES: No cyanosis, clubbing, or pedal edema. NEUROLOGICAL: Gross neurological examination did not reveal any focal deficits. SKIN: No rashes. - Labs CBC & Chem 7: 04/27/19 09:09 04/27/19 09:09 Labs: Abnormal Lab Results - Last 24 Hours (Table) 04/27/19 04/27/19 04/27/19 Range/Units 09:09 09:09 09:09 WBC 10.8 H (3.8-10.6) k/uL PT 16.5 H (9.0-12.0) sec INR 1.7 H (<1.2) Carbon Dioxide 37 H (22-30) mmol/L BUN 22 H (7-17) mg/dL Assessment and Plan Plan: Shortness of breath: Secondary to COPD exacerbation patient was started on systemic steroids inhalational treatments counseling regarding the smoking bernard sation was provided. -Possiblity of urinary tract infection which I cannot rule out because of which I'll continue with Rocephin for now, the urine cultures available at this time -Congestive heart failure chronic systolic dysfunction . Percent patient has an AICD IV fluids will be discontinued patient's lactic acidosis resolved patient is on the oral Lasix patient is presently euvolemic. -Mitral valve replacement some therapy cannot but will still continue the same dose of Coumadin considering that patient is on systemic steroids her INR is expected to go up -Coronary artery disease -Continued nicotine use: Counseling was provided
[2019-04-27] MEDS ORDERED: WARFARIN 3 MG TAB PO ONE (18:00)
[2019-04-27] MEDS: methylPREDNISolone SOD SUCCI 40 MG/ML 1 ML VIAL IV SCH (22:40)
[2019-04-27] MEDS: ATORVASTATIN 20 MG TAB PO SCH (22:40)
[2019-04-28] MEDS: ENOXAPARIN 40 MG/0.4 ML SYRINGE SQ SCH (07:38)
[2019-04-28] MEDS: PARoxetine 20 MG TAB PO SCH (07:39)
[2019-04-28] MEDS: FUROSEMIDE 40 MG TAB PO SCH ×2 (07:39→15:13)
[2019-04-28] MEDS: METOPROLOL TARTRATE 50 MG TAB PO SCH ×2 (07:39→23:09)
[2019-04-28] MEDS: FAMOTIDINE 20 MG TAB PO SCH (07:39)
[2019-04-28] MEDS: methylPREDNISolone SOD SUCCI 40 MG/ML 1 ML VIAL IV SCH ×2 (07:40→20:56)
--- NOTE | 2019-04-28 07:41 | XR ---
EXAMINATION TYPE: XR chest 1V DATE OF EXAM: 04/28/2019 CLINICAL HISTORY: Difficulty breathing progress study. TECHNIQUE: Single AP portable upright view of the chest is obtained. COMPARISON: Chest x-ray from 3 days earlier FINDINGS: Background chronic emphysematous change and cardiomegaly. Persistent single lead pacemaker /ICD and atherosclerotic thoracic aorta. Overlying sternal wires and mediastinal clips. Reticular int erstitial changes bilaterally. No new focal airspace opacity or pneumothorax. Possible small to tiny right greater than left pleural effusions. Osseous structures are intact. IMPRESSION: Chronic emphysematous and parenchymal changes along with cardiomegaly with probable small to tiny right pleural effusion. No new focal infiltrate.
[2019-04-28] MEDS: oxyCODONE-APAP 10-325MG 1 EACH TAB PO PRN (07:43)
[2019-04-28 07:45] LABS: INR 2.2 (<1.2); Prothrombin Time 21.1 sec (9.0-12.0)
[2019-04-28] MEDS: ALBUTEROL NEBULIZED 2.5 MG/3 ML INHALATION SCH (08:56)
[2019-04-28] MEDS: SENNOSIDES 8.6 MG TAB PO PRN (12:24)
[2019-04-28] MEDS: IPRATROPIUM-ALBUTEROL 3 ML NEB INHALATION SCH ×3 (13:24→22:39)
[2019-04-28] MEDS ORDERED: WARFARIN 2 MG TAB PO ONE (18:00)
--- NOTE | 2019-04-28 19:14 | PN ---
PROGRESS NOTE DATE OF SERVICE: 04/28/2019 This 68-year-old woman was admitted with shortness of breath, COPD acute exacerbation, also had a presumed UTI. The patient is being closely monitored. No chest pain. No palpitations. No fever. EXAM: Alert and oriented x3. Pulse is 54, blood pressure 142/77, respirations 22, temperature 98 degrees, pulse ox 93% on 2 L. HEENT: Conjunctivae normal. Oral mucosa moist. NECK: No jugular venous distention. No lymph node enlargement. CARDIOVASCULAR: S1, S2. RESPIRATORY: Diminished breath sounds at the bases. Bilateral scattered rhonchi and crackles. Expiratory wheezing. ABDOMEN: Soft, nontender. NERVOUS SYSTEM: No focal deficits. LABS: WBC 10.8, INR 2.2. Sodium 143, potassium 3.7. ASSESSMENT: 1. Shortness of breath, possible chronic obstructive pulmonary disease acute exacerbation with acute purulent tracheobronchitis. 2. Acute urinary tract infection present on admission possibly. 3. Congestive heart failure with chronic systolic dysfunction, ejection fraction unknown. 4. History of AICD. 5. History of mitral valve replacement. 6. History of coronary artery disease. 7. Continued ongoing nicotine dependence. 8. Increased WBC. RECOMMENDATIONS AND DISCUSSION: In this 68-year-old woman who presented with multiple complex medical issues, we will monitor the patient closely, continue the current management, continue symptomatic treatment, continue with steroids, continue the rest of medications. Monitor PT, INR closely. Otherwise, repeat labs. Guarded prognosis because of multiple complex medical issues. Further recommendations to follow. MMODL / IJN: [id number] /
[2019-04-28] MEDS ORDERED: SYMBICORT 160-4.5 MCG INHALER INHALATION SCH (20:00)
[2019-04-28] MEDS: ATORVASTATIN 20 MG TAB PO SCH (20:56)
[2019-04-28] MEDS ORDERED: DOCUSATE 100 MG CAP PO SCH (21:00)
[2019-04-29] MEDS: IPRATROPIUM-ALBUTEROL 3 ML NEB INHALATION SCH ×3 (00:56→10:57)
[2019-04-29] MEDS: FAMOTIDINE 20 MG TAB PO SCH (07:13)
[2019-04-29] MEDS: SENNOSIDES 8.6 MG TAB PO PRN (07:13)
[2019-04-29] MEDS: FUROSEMIDE 40 MG TAB PO SCH (07:13)
[2019-04-29] MEDS: METOPROLOL TARTRATE 50 MG TAB PO SCH (07:13)
[2019-04-29] MEDS: methylPREDNISolone SOD SUCCI 40 MG/ML 1 ML VIAL IV SCH (07:14)
[2019-04-29] MEDS: PARoxetine 20 MG TAB PO SCH (07:14)
[2019-04-29] MEDS: ENOXAPARIN 40 MG/0.4 ML SYRINGE SQ SCH (07:14)
[2019-04-29 07:36] LABS: Basophils % (A) 0 %; Eosinophils % (A) 0 %; HCT 48.4 % (34.0-46.0); HGB 15.6 gm/dL (11.4-16.0); Lymphocytes # (A) 1.2 k/uL (1.0-4.8); Lymphocytes % (A) 13 %; MCH 31.8 pg (25.0-35.0); MCHC 32.3 g/dL (31.0-37.0); MCV 98.6 fL (80.0-100.0); Mean Platelet Volume 7.8; Monocytes # (A) 0.4 k/uL (0-1.0); Monocytes % (A) 4 %; Neutrophils # (A) 7.7 k/uL (1.3-7.7); Neutrophils % (A) 81 %; Platelet Count 263 k/uL (150-450); RBC 4.91 m/uL (3.80-5.40); RDW 13.2 % (11.5-15.5); WBC 9.5 k/uL (3.8-10.6)
[2019-04-29 07:53] LABS: INR 2.5 (<1.2); Prothrombin Time 24.2 sec (9.0-12.0)
[2019-04-29 08:04] LABS: Calcium 9.7 mg/dL (8.4-10.2); Potassium 4.1 mmol/L (3.5-5.1)
[2019-04-29] MEDS ORDERED: LISINOPRIL 5 MG TAB PO SCH (09:00)
[2019-04-29 11:51] VITALS: BP 134/76; PULSE 54; RESP 16; TEMP 97.9
[2019-04-29] MEDS ORDERED: WARFARIN 5 MG TAB PO ONE (18:00)
--- NOTE | 2019-04-30 07:51 | DS ---
DISCHARGE SUMMARY FINAL DIAGNOSES: 1. Shortness of breath, chronic obstructive pulmonary disease acute exacerbation with acute purulent tracheobronchitis. 2. Acute urinary tract infection, present on admission. 3. Congestive heart failure with chronic systolic dysfunction, ejection fraction unknown. 4. History of AICD. 5. History of mitral valve replacement. 6. History of coronary artery disease. 7. Continued ongoing nicotine dependence. 8. Increased WBC. DISCHARGE DISPOSITION: The patient will be discharged in stable condition with guarded prognosis. HISTORY OF PRESENT ILLNESS: This 68-year-old woman was admitted with COPD acute exacerbation with acute purulent tracheobronchitis treated with bronchodilators, antibiotics and steroids. Patient improved significantly. On exam, vitals are stable. CARDIOVASCULAR: S1, S2 muffled. RESPIRATORY: A few scattered rhonchi. ABDOMEN: Soft. NERVOUS SYSTEM: No focal deficits. DISCHARGE ADVICE: 1. Diet is cardiac. 2. Activity limited until followup. Medications are as follows: 1. Coumadin 5 mg Tuesday, Tuesday, Tuesday, and 7.5 mg . 2. Ecotrin 325 mg p.o. daily. 3. Lasix 40 mg p.o. b.i.d. 4. Lopressor 50 mg p.o. b.i.d. 5. Loratadine 10 mg p.o. daily. 6. Paxil 40 mg q.a.m. 7. Oxycodone 10 mg p.o. q.i.d. 8. KCl 16 mEq p.o. b.i.d. 9. Vasotec 2.5 mg p.o. daily. 10.Albuterol 2 puffs q.i.d. p.r.n. 11.Zantac 300 mg p.o. daily. 12.Zocor 40 mg at bedtime. 13.Ceftin 500 mg p.o. b.i.d. 14.DuoNeb q.i.d. and p.r.n. 15.Prednisone 40 mg p.o. daily with 3 days, 30 for 3 days, 20 for 3 days 10 for 3 days. 16.Senokot 17.2 mg p.o. b.i.d. 17.Symbicort 160/4.5 two puffs b.i.d. MMODL / IJN: [id number] / [facility]
== END 2019-04-29 14:27 | disposition home or self-care (01) | DRG 191 ==
LOC: EC 20:48 → 5NMEDONC 23:05
PROVIDERS: ADMIT Hospitalist; ATTEND Hospitalist
DX: J44.1 Chronic obstructive pulmonary disease with (acute) exacerbation (principal); I50.22 Chronic systolic (congestive) heart failure; E87.2 Acidosis; J45.901 Unspecified asthma with (acute) exacerbation; N39.0 Urinary tract infection, site not specified; J44.0 Chronic obstructive pulmonary disease with (acute) lower respiratory infection; I48.91 Unspecified atrial fibrillation; I25.10 Atherosclerotic heart disease of native coronary artery without angina pectoris; F32.9 Major depressive disorder, single episode, unspecified; F17.200 Nicotine dependence, unspecified, uncomplicated; M19.90 Unspecified osteoarthritis, unspecified site; I25.2 Old myocardial infarction; Z79.01 Long term (current) use of anticoagulants; Z79.899 Other long term (current) drug therapy; Z82.49 Family history of ischemic heart disease and other diseases of the circulatory system; Z95.810 Presence of automatic (implantable) cardiac defibrillator; Z95.2 Presence of prosthetic heart valve; Z79.82 Long term (current) use of aspirin; Z87.01 Personal history of pneumonia (recurrent); Z95.5 Presence of coronary angioplasty implant and graft; Z98.51 Tubal ligation status; Z88.1 Allergy status to other antibiotic agents; Z88.5 Allergy status to narcotic agent; Z88.0 Allergy status to penicillin
CPT/HCPCS: 36415; 70450; 71045; 71046; 80048; 80053; 81001; 83605; 83735; 84100; 84484; 85025; 85027; 85610; 85730; 87502; 93005; 94640; 94760; 96361; 96365; 96366; 96375; 99285

== ENCOUNTER 2019-05-27 13:01 | Inpatient (IN) | payer MEDICARE, OTHER ==
[2019-05-27] MEDS ORDERED: MAGNESIUM SULFATE-D5W PMX 1 GM in DEXTROSE/WATER 1 100ML.BAG IVPB STA (14:00)
[2019-05-27] MEDS ORDERED: IPRATROPIUM-ALBUTEROL 3 ML NEB INHALATION STA (14:00)
[2019-05-27 14:38] LABS: Basophils # (A) 0.1 k/uL (0-0.2); Basophils % (A) 1 %; Eosinophils # (A) 0.1 k/uL (0-0.7); Eosinophils % (A) 1 %; HCT 39.9 % (34.0-46.0); HGB 12.7 gm/dL (11.4-16.0); Lymphocytes # (A) 1.1 k/uL (1.0-4.8); Lymphocytes % (A) 15 %; MCH 31.9 pg (25.0-35.0); MCV 99.8 fL (80.0-100.0); Macrocytosis Slight; Mean Platelet Volume 7.8; Monocytes # (A) 0.5 k/uL (0-1.0); Monocytes % (A) 6 %; Neutrophils # (A) 5.6 k/uL (1.3-7.7); Neutrophils % (A) 75 %; Platelet Count 271 k/uL (150-450); RDW 14.3 % (11.5-15.5); WBC 7.4 k/uL (3.8-10.6)
[2019-05-27 14:48] LABS: Albumin 3.8 g/dL (3.5-5.0); Calcium 9.2 mg/dL (8.4-10.2); Potassium 4.3 mmol/L (3.5-5.1); Total Bilirubin 0.6 mg/dL (0.2-1.3); Total Protein 6.5 g/dL (6.3-8.2)
[2019-05-27 14:53] LABS: D-Dimer <0.17 mg/L FEU (<0.60); INR 3.2 (<1.2); Partial Thromboplastin Time 44.8 sec (22.0-30.0)
--- NOTE | 2019-05-27 15:09 | XR ---
EXAMINATION TYPE: XR chest 2V DATE OF EXAM: 05/27/2019 COMPARISON: 04/28/2019 HISTORY: Difficulty breathing TECHNIQUE: FINDINGS: Heart is borderline enlarged. There is a left axillary pacemaker. There are sternal wires. There is some mild interstitial infiltrate and atelectasis at the lung bases. There is minimal pulmon leora congestion. There are chest leads. There is a left axillary pacemaker. There is mild thoracic dex troscoliosis. IMPRESSION: Interstitial infiltrates in the lower lung bryson increased compared to last exam. Mild h eart failure is possible.
[2019-05-27 15:45] LABS: Appearance,Urine Clear (Clear); Bilirubin,Urine Negative (Negative); Blood,Urine Negative (Negative); Color,Urine Yellow; Glucose,Urine (UA) Negative (Negative); Hyaline Casts,Urine 1 /lpf (0-2); Ketones,Urine Negative (Negative); Leukocyte Esterase,Urine Negative (Negative); Mucus,Urine Rare /hpf; Nitrite,Urine Negative (Negative); PH, Urine 6.5 (5.0-8.0); Protein,Urine 1+ (Negative); RBC,Urine 4 /hpf (0-5); Specific Gravity,Urine 1.021 (1.001-1.035); Squamous Epithelial Cell,Urine 2 /hpf (0-4); Urobilinogen,Urine <2.0 mg/dL (<2.0); WBC,Urine 1 /hpf (0-5)
--- NOTE | 2019-05-27 15:47 | US ---
EXAMINATION TYPE: US venous doppler duplex LE RT DATE OF EXAM: 05/27/2019 3:31 PM COMPARISON: NONE CLINICAL HISTORY: swelling, SOB. ankle swelling, no h/o dvt SIDE PERFORMED: Right TECHNIQUE: The lower extremity deep venous system is examined utilizing real time linear array sonog marcela with graded compression, doppler sonography and color-flow sonography. VESSELS IMAGED: External Iliac Vein (EIV) Common Femoral Vein Deep Femoral Vein Greater Saphenous Vein * Femoral Vein Popliteal Vein Small Saphenous Vein * Proximal Calf Veins (* superficial vessels) *Patient rolled up on her left side during exam due to coughing and phlegm* Right Leg: Appears negative for DVT IMPRESSION: No evidence of deep venous thrombosis in the right leg.
[2019-05-27] MEDS ORDERED: FUROSEMIDE 10 MG/ML 10 ML VIAL IV STA (16:55)
[2019-05-27] MEDS ORDERED: NALOXONE 0.4 MG/ML 1 ML VIAL IV PRN (16:59)
[2019-05-27] MEDS ORDERED: SENNOSIDES 8.6 MG TAB PO PRN (17:02)
--- NOTE | 2019-05-27 17:03 | ED ---
SOB HPI - General Chief Complaint: Shortness of Breath Stated Complaint: Vomiting Time Seen by Provider: 05/27/19 13:05 Source: patient Mode of arrival: wheelchair Limitations: physical limitation - History of Present Illness Initial Comments: The patient is a 68-year-old female with past medical history of A. fib, asthma, heart failure and COPD who presents to the emergency department with reported shortness of breath. The patient was hospitalized from April 24 to the . She was diagnosed with pneumonia at that time. States that she was discharged home on antibiotics she finished the course however she states that she has not felt well. She complains of orthopnea and lower trauma swelling. The right leg has been swollen more so than left. She denies a history of DVT or PE. She is not on any anticoagulation. Admits to a nonproductive cough. Denies any sick contacts. No chest pain. She has not been compliant with her Lasix. States that because she has not felt well she did not want have to keep getting up and going to the bathroom therefore she has only been taking 40 mg of Lasix every other day. No reported fevers or chills. Denies nausea, vomiting or abdominal pain. She has been following up with Dr. Mobley in office. He currently has her on Bactrim for a urinary tract infection. States that she has not finished a course however because it has not made her feel better she is coming in to the emergency room for evaluation. There are no alleviating, or modifying factors - Related Data Home Medications Medication Instructions Recorded Confirmed Furosemide [Lasix] 40 mg PO BID 02/19/16 05/27/19 Potassium Chloride 16 meq PO BID 02/19/16 05/27/19 Simvastatin [Zocor] 40 mg PO HS 02/19/16 05/27/19 Warfarin [Coumadin] 5 mg PO SUTUWEFRSA 02/19/16 05/27/19 Loratadine 10 mg PO DAILY 05/25/17 05/27/19 Metoprolol Tartrate [Lopressor] 50 mg PO BID 05/25/17 05/27/19 Albuterol Inhaler [Ventolin Hfa 2 puff INHALATION RT-Q4H PRN 05/31/17 05/27/19 Inhaler] PARoxetine HCL [Paxil] 40 mg PO QAM 11/21/17 05/27/19 oxyCODONE-APAP 10-325MG [Percocet 1 tab PO QID 11/21/17 05/27/19 10-325 mg] Warfarin [Coumadin] 2.5 mg PO MOTH 04/26/19 05/27/19 Previous Rx's Medication Instructions Recorded Budesonide-Formot 160-4.5 Mcg 2 puff INHALATION RT-BID #1 puff 04/29/19 [Symbicort 160-4.5 Mcg Inhaler] Ipratropium-Albuterol Nebulize 3 ml INHALATION RT-Q6H #120 04/29/19 [Duoneb 0.5 mg-3 mg/3 ml Soln] ampul.neb Sennosides [Senokot] 17.2 mg PO BID PRN #20 tab 04/29/19 Sacubitril/Valsartan [Entresto 24 1 each PO BID #60 tablet 05/29/19 mg-26 mg Tablet] Aspirin 81 mg PO DAILY #30 chew 06/01/19 Famotidine [Pepcid] 20 mg PO BID #60 tablet 06/01/19 Melatonin 3 mg PO HS tablet 06/01/19 guaiFENesin [Mucinex] 1,200 mg PO BID #30 tbmp.12hr 06/01/19 predniSONE 10 mg PO DAILY #30 tab 06/01/19 Allergies Allergy/AdvReac Type Severity Reaction Status Date / Time hydromorphone [From Dilaudid] Allergy Unknown Verified 05/27/19 17:14 levofloxacin [From Levaquin] Allergy Anaphylaxis Verified 05/27/19 17:14 (went into a coma) Penicillins Allergy Rash/Hives Verified 05/27/19 17:14 codeine AdvReac Nausea & Verified 05/27/19 17:14 Vomiting Review of Systems ROS Statement: Those systems with pertinent positive or pertinent negative responses have been documented in the HPI. ROS Other: All systems not noted in ROS Statement are negative. Past Medical History Past Medical History: Atrial Fibrillation, Asthma, Heart Failure, COPD, GI Bleed, Myocardial Infarction (OK), Osteoarthritis (OA), Pneumonia Additional Past Medical History / Comment(s): N,V,hypotensive, chronic back pain Last Myocardial Infarction Date:: unk History of Any Multi-Drug Resistant Organisms: None Reported Past Surgical History: AICD, Section, Heart Catheterization With Stent, Pacemaker, Tubal Ligation Additional Past Surgical History / Comment(s): mitral valve replacement, tubal ligation, Past Anesthesia/Blood Transfusion Reactions: No Reported Reaction Date of Last Stent Placement:: unk Type of Cardiac Device: Permanent Pacemaker, AICD Device Placement Date:: 2014 Past Psychological History: Depression Smoking Status: Current every day smoker Past Alcohol Use History: None Reported Past Drug Use History: None Reported - Past Family History Mother Additional Family Medical History / Comment(s): MOM IN MVA ACCIDENT Father Family Medical History: Coronary Artery Disease (CAD) Additional Family Medical History / Comment(s): CARDIAC DISEASE General Exam Limitations: no limitations General appearance: alert, in distress Head exam: Present: atraumatic, normocephalic, normal inspection Eye exam: Present: normal appearance, PERRL, EOMI. Absent: scleral icterus, conjunctival injection, periorbital swelling ENT exam: Present: normal exam, mucous membranes moist Neck exam: Present: normal inspection. Absent: tenderness, meningismus, lymph adenopathy Respiratory exam: Present: respiratory distress, wheezes, rales, accessory muscle use, decreased breath sounds. Absent: rhonchi, stridor Cardiovascular Exam: Present: regular rate, normal rhythm, normal heart sounds. Absent: systolic murmur, diastolic murmur, rubs, gallop, clicks GI/Abdominal exam: Present: soft, normal bowel sounds. Absent: distended, tenderness, guarding, rebound, rigid Extremities exam: Present: full ROM, normal capillary refill, pedal edema. Absent: tenderness, joint swelling, calf tenderness Back exam: Present: normal inspection Neurological exam: Present: alert, oriented X3, CN II-XII intact Psychiatric exam: Present: normal affect, normal mood Skin exam: Present: warm, dry, intact, normal color. Absent: rash Course Vital Signs 05/27/19 05/27/19 05/27/19 13:05 13:15 13:30 Temperature 98.5 F Pulse Rate 63 Pulse Rate [ 62 Tariff Expert ] Respiratory 20 24 Rate Blood Pressure 161/76 O2 Sat by Pulse 95 97 Oximetry 05/27/19 05/27/19 05/27/19 14:00 14:31 14:40 Temperature Pulse Rate 63 63 69 Pulse Rate [ Tariff Expert ] Respiratory 18 20 20 Rate Blood Pressure 150/80 O2 Sat by Pulse 97 Oximetry 05/27/19 05/27/19 05/27/19 15:00 17:34 17:47 Temperature 98.2 F 98.2 F Pulse Rate 67 62 62 Pulse Rate [ Tariff Expert ] Respiratory 20 16 16 Rate Blood Pressure 155/81 155/78 148/87 O2 Sat by Pulse 98 98 98 Oximetry Medical Decision Making - Medical Decision Making Upon arrival the patient was placed into room 4. A thorough history and physical exam was performed. Peripheral IV was established. The patient was given a DuoNeb breathing treatment as well as a gram of magnesium. Laboratory studies were conducted. I did ultrasound the patient's right lower extremity because of her edema. CBC is unremarkable. D-dimer is negative. INR is slightly elevated at 3.2. CMP was unremarkable. Troponin is negative. BNP elevated at 3170. Urinalysis shows rare mucous. Influenza A and B are negative. Chest x-ray does demonstrate bibasilar infiltrates concerning for fluid overload. Venous duplex of the right lower extremity demonstrates no acute DVT. I discussed diagnosis, differential and treatment options with the patient. She is given 60 mg of Lasix IV. I did recommend hospital admission for IV diuresis. The patient did agree to this. I called and discussed the case with Dr. Larson who accepted admission. He does present to the emergency room today with the patient. She was then transported to the floor in stable condition - Lab Data Result diagrams: 05/29/19 08:18 06/01/19 07:11 Lab Results 05/27/19 05/27/19 05/27/19 Range/Units 14:08 14:08 14:08 WBC 7.4 (3.8-10.6) k/uL RBC 4.00 (3.80-5.40) m/uL Hgb 12.7 (11.4-16.0) gm/dL Hct 39.9 (34.0-46.0) % MCV 99.8 (80.0-100.0) fL MCH 31.9 (25.0-35.0) pg MCHC 32.0 (31.0-37.0) g/dL RDW 14.3 (11.5-15.5) % Plt Count 271 (150-450) k/uL Neutrophils % 75 % Lymphocytes % 15 % Monocytes % 6 % Eosinophils % 1 % Basophils % 1 % Neutrophils # 5.6 (1.3-7.7) k/uL Lymphocytes # 1.1 (1.0-4.8) k/uL Monocytes # 0.5 (0-1.0) k/uL Eosinophils # 0.1 (0-0.7) k/uL Basophils # 0.1 (0-0.2) k/uL Macrocytosis Slight PT (9.0-12.0) sec INR (<1.2) APTT (22.0-30.0) sec D-Dimer (<0.60) mg/L FEU Sodium 145 (137-145) mmol/L Potassium 4.3 (3.5-5.1) mmol/L Chloride 110 H (98-107) mmol/L Carbon Dioxide 29 (22-30) mmol/L Anion Gap 6 mmol/L BUN 9 (7-17) mg/dL Creatinine 0.84 (0.52-1.04) mg/dL Est GFR (CKD-EPI)AfAm 81 (>60 ml/min/1.73 sqM) Est GFR (CKD-EPI)NonAf 71 (>60 ml/min/1.73 sqM) Glucose 118 H (74-99) mg/dL Plasma Lactic Acid Suleman (0.7-2.0) mmol/L Calcium 9.2 (8.4-10.2) mg/dL Total Bilirubin 0.6 (0.2-1.3) mg/dL AST 24 (14-36) U/L ALT 11 (4-34) U/L Alkaline Phosphatase 86 (38-126) U/L Troponin I (0.000-0.034) ng/mL NT-Pro-B Natriuret Pep pg/mL Total Protein 6.5 (6.3-8.2) g/dL Albumin 3.8 (3.5-5.0) g/dL Urine Color Urine Appearance (Clear) Urine pH (5.0-8.0) Ur Specific [place] (1.001-1.035) Urine Protein (Negative) Urine Glucose (UA) (Negative) Urine Ketones (Negative) Urine Blood (Negative) Urine Nitrite (Negative) Urine Bilirubin (Negative) Urine Urobilinogen (<2.0) mg/dL Ur Leukocyte Esterase (Negative) Urine RBC (0-5) /hpf Urine WBC (0-5) /hpf Ur Squamous Epith Cells (0-4) /hpf Hyaline Casts (0-2) /lpf Urine Mucus (None) /hpf Influenza Type A RNA Not Detected (Not Detectd) Influenza Type B (PCR) Not Detected (Not Detectd) 05/27/19 05/27/19 05/27/19 Range/Units 14:08 14:08 14:08 WBC (3.8-10.6) k/uL RBC (3.80-5.40) m/uL Hgb (11.4-16.0) gm/dL Hct (34.0-46.0) % MCV (80.0-100.0) fL MCH (25.0-35.0) pg MCHC (31.0-37.0) g/dL RDW (11.5-15.5) % Plt Count (150-450) k/uL Neutrophils % % Lymphocytes % % Monocytes % % Eosinophils % % Basophils % % Neutrophils # (1.3-7.7) k/uL Lymphocytes # (1.0-4.8) k/uL Monocytes # (0-1.0) k/uL Eosinophils # (0-0.7) k/uL Basophils # (0-0.2) k/uL Macrocytosis PT 31.0 H (9.0-12.0) sec INR 3.2 H (<1.2) APTT 44.8 H (22.0-30.0) sec D-Dimer <0.17 (<0.60) mg/L FEU Sodium (137-145) mmol/L Potassium (3.5-5.1) mmol/L Chloride (98-107) mmol/L Carbon Dioxide (22-30) mmol/L Anion Gap mmol/L BUN (7-17) mg/dL Creatinine (0.52-1.04) mg/dL Est GFR (CKD-EPI)AfAm (>60 ml/min/1.73 sqM) Est GFR (CKD-EPI)NonAf (>60 ml/min/1.73 sqM) Glucose (74-99) mg/dL Plasma Lactic Acid Suleman (0.7-2.0) mmol/L Calcium (8.4-10.2) mg/dL Total Bilirubin (0.2-1.3) mg/dL AST (14-36) U/L ALT (4-34) U/L Alkaline Phosphatase (38-126) U/L Troponin I <0.012 (0.000-0.034) ng/mL NT-Pro-B Natriuret Pep 3170 pg/mL Total Protein (6.3-8.2) g/dL Albumin (3.5-5.0) g/dL Urine Color Urine Appearance (Clear) Urine pH (5.0-8.0) Ur Specific [place] (1.001-1.035) Urine Protein (Negative) Urine Glucose (UA) (Negative) Urine Ketones (Negative) Urine Blood (Negative) Urine Nitrite (Negative) Urine Bilirubin (Negative) Urine Urobilinogen (<2.0) mg/dL Ur Leukocyte Esterase (Negative) Urine RBC (0-5) /hpf Urine WBC (0-5) /hpf Ur Squamous Epith Cells (0-4) /hpf Hyaline Casts (0-2) /lpf Urine Mucus (None) /hpf Influenza Type A RNA (Not Detectd) Influenza Type B (PCR) (Not Detectd) 05/27/19 05/27/19 05/28/19 Range/Units 14:08 15:05 07:49 WBC (3.8-10.6) k/uL RBC (3.80-5.40) m/uL Hgb (11.4-16.0) gm/dL Hct (34.0-46.0) % MCV (80.0-100.0) fL MCH (25.0-35.0) pg MCHC (31.0-37.0) g/dL RDW (11.5-15.5) % Plt Count (150-450) k/uL Neutrophils % % Lymphocytes % % Monocytes % % Eosinophils % % Basophils % % Neutrophils # (1.3-7.7) k/uL Lymphocytes # (1.0-4.8) k/uL Monocytes # (0-1.0) k/uL Eosinophils # (0-0.7) k/uL Basophils # (0-0.2) k/uL Macrocytosis PT (9.0-12.0) sec INR (<1.2) APTT (22.0-30.0) sec D-Dimer (<0.60) mg/L FEU Sodium 142 (137-145) mmol/L Potassium 4.5 (3.5-5.1) mmol/L Chloride 99 (98-107) mmol/L Carbon Dioxide 37 H (22-30) mmol/L Anion Gap 6 mmol/L BUN 18 H (7-17) mg/dL Creatinine 1.21 H (0.52-1.04) mg/dL Est GFR (CKD-EPI)AfAm 53 (>60 ml/min/1.73 sqM) Est GFR (CKD-EPI)NonAf 46 (>60 ml/min/1.73 sqM) Glucose 131 H (74-99) mg/dL Plasma Lactic Acid Suleman 1.3 (0.7-2.0) mmol/L Calcium 9.0 (8.4-10.2) mg/dL Total Bilirubin 0.6 (0.2-1.3) mg/dL AST 23 (14-36) U/L ALT 11 (4-34) U/L Alkaline Phosphatase 91 (38-126) U/L Troponin I (0.000-0.034) ng/mL NT-Pro-B Natriuret Pep pg/mL Total Protein 7.0 (6.3-8.2) g/dL Albumin 4.0 (3.5-5.0) g/dL Urine Color Yellow Urine Appearance Clear (Clear) Urine pH 6.5 (5.0-8.0) Ur Specific [place] 1.021 (1.001-1.035) Urine Protein 1+ H (Negative) Urine Glucose (UA) Negative (Negative) Urine Ketones Negative (Negative) Urine Blood Negative (Negative) Urine Nitrite Negative (Negative) Urine Bilirubin Negative (Negative) Urine Urobilinogen <2.0 (<2.0) mg/dL Ur Leukocyte Esterase Negative (Negative) Urine RBC 4 (0-5) /hpf Urine WBC 1 (0-5) /hpf Ur Squamous Epith Cells 2 (0-4) /hpf Hyaline Casts 1 (0-2) /lpf Urine Mucus Rare H (None) /hpf Influenza Type A RNA (Not Detectd) Influenza Type B (PCR) (Not Detectd) 05/29/19 05/29/19 05/29/19 Range/Units 08:18 08:18 08:18 WBC 8.9 (3.8-10.6) k/uL RBC 4.09 (3.80-5.40) m/uL Hgb 13.0 (11.4-16.0) gm/dL Hct 41.0 (34.0-46.0) % MCV 100.1 H (80.0-100.0) fL MCH 31.7 (25.0-35.0) pg MCHC 31.6 (31.0-37.0) g/dL RDW 14.3 (11.5-15.5) % Plt Count 350 (150-450) k/uL Neutrophils % 69 % Lymphocytes % 20 % Monocytes % 7 % Eosinophils % 0 % Basophils % 1 % Neutrophils # 6.2 (1.3-7.7) k/uL Lymphocytes # 1.8 (1.0-4.8) k/uL Monocytes # 0.7 (0-1.0) k/uL Eosinophils # 0.0 (0-0.7) k/uL Basophils # 0.1 (0-0.2) k/uL Macrocytosis Slight PT 21.1 H (9.0-12.0) sec INR 2.2 H (<1.2) APTT (22.0-30.0) sec D-Dimer (<0.60) mg/L FEU Sodium 140 (137-145) mmol/L Potassium 3.9 (3.5-5.1) mmol/L Chloride 99 (98-107) mmol/L Carbon Dioxide 35 H (22-30) mmol/L Anion Gap 6 mmol/L BUN 26 H (7-17) mg/dL Creatinine 1.14 H (0.52-1.04) mg/dL Est GFR (CKD-EPI)AfAm 57 (>60 ml/min/1.73 sqM) Est GFR (CKD-EPI)NonAf 49 (>60 ml/min/1.73 sqM) Glucose 101 H (74-99) mg/dL Plasma Lactic Acid Suleman (0.7-2.0) mmol/L Calcium 8.8 (8.4-10.2) mg/dL Total Bilirubin (0.2-1.3) mg/dL AST (14-36) U/L ALT (4-34) U/L Alkaline Phosphatase (38-126) U/L Troponin I (0.000-0.034) ng/mL NT-Pro-B Natriuret Pep pg/mL Total Protein (6.3-8.2) g/dL Albumin (3.5-5.0) g/dL Urine Color Urine Appearance (Clear) Urine pH (5.0-8.0) Ur Specific [place] (1.001-1.035) Urine Protein (Negative) Urine Glucose (UA) (Negative) Urine Ketones (Negative) Urine Blood (Negative) Urine Nitrite (Negative) Urine Bilirubin (Negative) Urine Urobilinogen (<2.0) mg/dL Ur Leukocyte Esterase (Negative) Urine RBC (0-5) /hpf Urine WBC (0-5) /hpf Ur Squamous Epith Cells (0-4) /hpf Hyaline Casts (0-2) /lpf Urine Mucus (None) /hpf Influenza Type A RNA (Not Detectd) Influenza Type B (PCR) (Not Detectd) - EKG Data EKG Comments: EKG demonstrates an atrial paced rhythm with a rate of 56. WA interval 184. QRS 106. QTC of 441. There is inverted T waves in V2 through V6. No acute ST segment elevations. Disposition Clinical Impression: Congestive heart failure, History of atrial fibrillation, Warfarin-induced coagulopathy Disposition: ADMITTED IP TO THIS HOSP Condition: Stable Is patient prescribed a controlled substance at d/c from ED?: No Decision to Admit Reason: Admit from EC Decision Date: 05/27/19 Decision Time: 17:03
--- NOTE | 2019-05-27 18:09 | P.HPIM ---
History of Present Illness H&P Date: 05/27/19 Chief Complaint: shortness of breath for few days 68 year old female with chronic systolic CHF most recent LVEF 20% 2018, non compliant with lasix at home, copd with recurrent episodes of exacerbation and nicotine dependant smoking cigarettes. patient comes in today with few day history of worsening symptoms of trouble breathing, she reports that over the past 2-3 months she has not been doing well with recent hospitalization end of april last year for COPD. she admits to smoking cigarettes, and admits to stopping lasix on her own , due to having urinary symptoms of urgency and frequency dysuria and lasix was making it worse. COPD, not on home oxygen chronic productive cough, thick sputum now, no hemoptysis no recent traveling or sick contact denies fever chills, sore throat or muscle aches tested negative for flu in the ER uses inhalers. continues to smoke cigarettes, trying to cut back wheezing and trouble breathing just finished a tapering dose of steroids around 10 days ago Chronic systolic CHF non compliant with lasix as mentioned above supposedly takes all her other medications, however family members has her doubts , and reports patient has recently been difficulty and forgetful positive symptoms of orthopnea, and PNDs, noticed leg swelling at baseline NYHA II now short of breath even at rest no falls, no recent travel or sick contact diagnosed yesterday with recurrent UTI and strated on bactrim by her PCP Chronic low back pain , requesting her home dose of precocet In the ED CXR ,interstitial infilterate no leukocytosis INR 3.2 on coumadin for history of MV replacement , denies any GI bleeding received 60 mg of IV lasix in the ED, she feels some improvement Venous duplex ultrasound of the lower extremities negative for acute DVT Review of Systems Pertinent positives as noted in HPI. All other systems were reviewed and are negative Past Medical History Past Medical History: Atrial Fibrillation, Asthma, Heart Failure, COPD, GI Bleed, Myocardial Infarction (CO), Osteoarthritis (OA), Pneumonia Additional Past Medical History / Comment(s): N,V,hypotensive, chronic back pain Last Myocardial Infarction Date:: unk History of Any Multi-Drug Resistant Organisms: None Reported Past Surgical History: AICD, Section, Heart Catheterization With Stent, Pacemaker, Tubal Ligation Additional Past Surgical History / Comment(s): mitral valve replacement, tubal ligation, Past Anesthesia/Blood Transfusion Reactions: No Reported Reaction Date of Last Stent Placement:: unk Type of Cardiac Device: Permanent Pacemaker, AICD Device Placement Date:: 2014 Past Psychological History: Depression Smoking Status: Current every day smoker Past Alcohol Use History: None Reported Past Drug Use History: None Reported - Past Family History Mother Additional Family Medical History / Comment(s): MOM IN MVA ACCIDENT Father Family Medical History: Coronary Artery Disease (CAD) Additional Family Medical History / Comment(s): CARDIAC DISEASE Medications and Allergies Home Medications Medication Instructions Recorded Confirmed Type Furosemide [Lasix] 40 mg PO BID 02/19/16 05/27/19 History Potassium Chloride 16 meq PO BID 02/19/16 05/27/19 History Simvastatin [Zocor] 40 mg PO HS 02/19/16 05/27/19 History Warfarin [Coumadin] 5 mg PO SUTUWEFRSA 02/19/16 05/27/19 History Aspirin EC [Ecotrin] 325 mg PO DAILY 05/25/17 05/27/19 History Loratadine 10 mg PO DAILY 05/25/17 05/27/19 History Metoprolol Tartrate [Lopressor] 50 mg PO BID 05/25/17 05/27/19 History Albuterol Inhaler [Ventolin Hfa 2 puff INHALATION RT-Q4H PRN 05/31/17 05/27/19 History Inhaler] PARoxetine HCL [Paxil] 40 mg PO QAM 11/21/17 05/27/19 History oxyCODONE-APAP 10-325MG [Percocet 1 tab PO QID 11/21/17 05/27/19 History 10-325 mg] Enalapril [Vasotec] 2.5 mg PO DAILY 04/26/19 05/27/19 History Ranitidine HCl [Zantac] 300 mg PO DAILY 04/26/19 05/27/19 History Warfarin [Coumadin] 2.5 mg PO MOTH 04/26/19 05/27/19 History Budesonide-Formot 160-4.5 Mcg 2 puff INHALATION RT-BID #1 puff 04/29/19 05/27/19 Rx [Symbicort 160-4.5 Mcg Inhaler] Ipratropium-Albuterol Nebulize 3 ml INHALATION RT-Q6H #120 04/29/19 05/27/19 Rx [Duoneb 0.5 mg-3 mg/3 ml Soln] ampul.neb Sennosides [Senokot] 17.2 mg PO BID PRN #20 tab 04/29/19 05/27/19 Rx Allergies Allergy/AdvReac Type Severity Reaction Status Date / Time hydromorphone [From Dilaudid] Allergy Unknown Verified 05/27/19 17:14 levofloxacin [From Levaquin] Allergy Anaphylaxis Verified 05/27/19 17:14 (went into a coma) Penicillins Allergy Rash/Hives Verified 05/27/19 17:14 codeine AdvReac Nausea & Verified 05/27/19 17:14 Vomiting Physical Exam Vitals: Vital Signs Temp Pulse Pulse Resp BP Pulse Ox 05/27/19 15:00 67 20 155/81 98 05/27/19 14:40 69 20 05/27/19 14:31 63 20 05/27/19 14:00 63 18 150/80 97 05/27/19 13:30 62 24 05/27/19 13:15 97 05/27/19 13:05 98.5 F 63 20 161/76 95 Intake and Output 05/27/19 05/27/19 05/27/19 06:59 14:59 22:59 Other: Weight 92.986 kg Constitutional: No acute distress, conversant, pleasant, talking short sentences due to SOB, on oxygen via nasal canula Eyes: Anicteric sclerae, moist conjunctiva, Pupils equal round reactive to light ENMT: NC/AT Oropharynx clear, no erythema, exudates Neck: Supple, FROM, positive JVD, no masses No carotid bruits No thyromegaly Lungs: decrese breath sounds with prolonged expiratory phase, expiratory wheezing diffused, and inspiratory rales at lung basis Clear to percussion using accessory muscle of repiration Cardiovascular: Heart regular in rate and rhythm, No murmurs, gallops, or rubs +1 peripheral edema bilaterally Abdominal: Soft suprapubic discomfort and epigastric tenderness to percussion , no guarding, rebound or rigidity Abdomen moving with respiration Normoactive bowel sounds No hepatomegaly, No splenomegaly No palpable mass No abdominal wall hernia noted Skin: Normal temperature, tone, texture, turgor No induration No subcutaneous nodules No rash, lesions No ulcers Extremities: No digital cyanosis No clubbing Pedal pulses intact and symmetrical Radial pulses intact and symmetrical No calf tenderness Psychiatric: Alert and oriented to person, place and time Appropriate affect fair judgment Neuro Muscles Strength 4/5 in all 4 extremities Sensation to light touch grossly present throughout Cranial nerves II-XII grossly intact No focal sensory deficits Lymphatics: no palpable cervical or supraclavicular , or inguinal lymph nodes Results CBC & Chem 7: 05/27/19 14:08 05/27/19 14:08 Labs: Abnormal Lab Results - Last 24 Hours (Table) 05/27/19 05/27/19 05/27/19 Range/Units 14:08 14:08 15:05 PT 31.0 H (9.0-12.0) sec INR 3.2 H (<1.2) APTT 44.8 H (22.0-30.0) sec Chloride 110 H (98-107) mmol/L Glucose 118 H (74-99) mg/dL Urine Protein 1+ H (Negative) Urine Mucus Rare H (None) /hpf Assessment and Plan Assessment: 68 year old female with chronic systolic CHF most recent LVEF 20% 2017, non compliant with lasix at home, copd with recurrent episodes of exacerbation and nicotine dependant smoking cigarettes. Presents with acute worsening of shortness of breath, orthopnea, PND. Admits to noncompliance with Lasix. She reports recent diagnosis of recurrent UTI started on Bactrim yesterday. Patient admitted for acute systolic CHF exacerbation and acute exacerbation of COPD with recurrent UTI admitted as an inpatient with anticipated length of stay more than 2 midnights Plan: Difficulty in breathing secondary to the following Acute systolic CHF exacerbation due to noncompliance with diuretics Acute COPD exacerbation secondary to above Nicotine dependence patient continues to smoke cigarettes Recurrent UTI, partially treated with outpatient Plan Follow-up cultures Continue with Bactrim Continue with breathing treatments around the clock DuoNeb's when necessary Continue inhalers Systemic oral steroids Pulmonary toileting Strictly counseled to quit smoking Patient declined nicotine replacement therapy Assess and a oxygen requirement prior to discharge Influenza testing negative Resume her cardiac medications IV Lasix 40 mg twice a day Monitor urine output Strict I's and O's Daily weights Chronic low back pain, continue with Percocet History of mitral valve replacements patient on Coumadin Coumadin dosing by pharmacy Preformed a thorough record review from recent hospitalization acute COPD exacerbation secondary to tracheobronchitis CODE STATUS: Full code Discussed with: Patient, ER Anticipated length of stay more than [address]: Home with home health care A total of 70 minutes was spent on the care of this complex patient more than 50% of the time was spent in counseling and care coordination.
[2019-05-27] MEDS ORDERED: IPRATROPIUM-ALBUTEROL 3 ML NEB INHALATION PRN (18:10)
[2019-05-27] MEDS: IPRATROPIUM-ALBUTEROL 3 ML NEB INHALATION SCH (19:15)
[2019-05-27] MEDS: SYMBICORT 160-4.5 MCG INHALER INHALATION SCH (19:15)
[2019-05-27] MEDS: predniSONE 20 MG TAB PO SCH (19:33)
[2019-05-27] MEDS: PANTOPRAZOLE 40 MG TABLET PO SCH (19:33)
[2019-05-27] MEDS ORDERED: IPRATROPIUM-ALBUTEROL 3 ML NEB INHALATION SCH (20:00)
[2019-05-27] MEDS: FUROSEMIDE 10 MG/ML 4 ML VIAL IV SCH (20:49)
[2019-05-27] MEDS: SULFAMETHOX-TMP 800-160MG 1 EACH TAB PO SCH (20:50)
[2019-05-27] MEDS: ATORVASTATIN 20 MG TAB PO SCH (20:50)
[2019-05-27] MEDS: MELATONIN 3 MG TABLET PO SCH (20:50)
[2019-05-27] MEDS: guaiFENesin 600 MG TABLET.ER PO SCH (20:50)
[2019-05-27] MEDS: METOPROLOL TARTRATE 50 MG TAB PO SCH (20:50)
[2019-05-28] MEDS: oxyCODONE-APAP 10-325MG 1 EACH TAB PO PRN ×3 (03:38→16:58)
--- NOTE | 2019-05-28 08:04 | P.PN ---
Subjective Progress Note Date: 05/28/19 Principal diagnosis: follow up for SOB due to COPD and CHF non compliance with lasix, continues to be nicotine dependent patient seen and examined, patient breathing is better, denies shortness of breath at rest denies any chest pain tolerating by mouth intake denies chest pain nausea or vomiting She hasn't started to walk around Objective - Vital Signs Vital signs: Vital Signs Temp 97.8 F 05/28/19 04:54 Pulse 54 L 05/28/19 04:54 Resp 16 05/28/19 04:54 BP 135/71 05/28/19 04:54 Pulse Ox 95 05/28/19 04:54 Intake & Output 05/27/19 05/28/19 05/28/19 18:59 06:59 18:59 Weight 92.986 kg 89.5 kg Other: Voiding Method Bedside Commode # Voids 3 - Exam Constitutional: vital signs stable, Not in acute distress, pleasant, c onversant , patient is able to talk full sentences without interruption, no audible wheezing while she is talking Lungs: Improved breath sounds compared to yesterday, expiratory wheezing, inspiratory rales at lung bases Cardiovascular: Regular rate and rhythm, no murmurs, no gallops, no rubs, no pe ripheral edema Gastrointestinal: Soft, no tenderness to palpation bowel sounds positive, Extremities: No digital cyanosis or clubbing, peripheral pulses palpable and equal over bilateral radial arteries and dorsalis pedis artery, no calf muscle tenderness Psych: Alert, oriented to place, person and time, appropriate affect, intact judgment - Labs CBC & Chem 7: 05/27/19 14:08 05/28/19 07:49 Labs: Abnormal Lab Results - Last 24 Hours (Table) 05/27/19 05/27/19 05/27/19 Range/Units 14:08 14:08 15:05 PT 31.0 H (9.0-12.0) sec INR 3.2 H (<1.2) APTT 44.8 H (22.0-30.0) sec Chloride 110 H (98-107) mmol/L Glucose 118 H (74-99) mg/dL Urine Protein 1+ H (Negative) Urine Mucus Rare H (None) /hpf Assessment and Plan Assessment: 68 year old female with chronic systolic CHF most recent LVEF 20% 2017, non compliant with lasix at home, copd with recurrent episodes of exacerbation and nicotine dependant smoking cigarettes. Presents with acute worsening of shortness of breath, orthopnea, PND. Admits to noncompliance with Lasix. She reports recent diagnosis of recurrent UTI started on Bactrim yesterday. Patient admitted for acute systolic CHF exacerbation and acute exacerbation of COPD with recurrent UTI admitted as an inpatient with anticipated length of stay more than 2 midnights 05/28 patient continues to diuresing well no more leg edema lungs sounds better than yesterday she continues to get short of breath with minimal activity will continue current management for now check ambulatory oxygen saturation Plan: Difficulty in breathing secondary to the following Acute systolic CHF exacerbation due to noncompliance with diuretics Acute COPD exacerbation secondary to above Nicotine dependence patient continues to smoke cigarettes Recurrent UTI, partially treated with outpatient Plan Follow-up cultures Continue with Bactrim for OP UTI Continue with breathing treatments around the clock DuoNeb's when necessary Continue inhalers Systemic oral steroids Pulmonary toileting CPT Strictly counseled to quit smoking Patient declined nicotine replacement therapy Assess and a oxygen requirement prior to discharge Influenza testing negative Resume her cardiac medications IV Lasix 40 mg twice a day, one more day Monitor urine output Strict I's and O's Daily weights Chronic low back pain, continue with Percocet History of mitral valve replacements patient on Coumadin Coumadin dosing by pharmacy Preformed a thorough record review from recent hospitalization acute COPD exace rbation secondary to tracheobronchitis follow up labs anticipated discharge in 48 hours, set up with home health care
[2019-05-28] MEDS: SYMBICORT 160-4.5 MCG INHALER INHALATION SCH ×2 (08:22→20:17)
[2019-05-28] MEDS: IPRATROPIUM-ALBUTEROL 3 ML NEB INHALATION SCH ×4 (08:22→20:17)
[2019-05-28] MEDS: PANTOPRAZOLE 40 MG TABLET PO SCH ×2 (08:59→16:58)
[2019-05-28] MEDS: guaiFENesin 600 MG TABLET.ER PO SCH ×2 (08:59→21:06)
[2019-05-28] MEDS: LORATADINE 10 MG TAB PO SCH (08:59)
[2019-05-28] MEDS: PARoxetine 20 MG TAB PO SCH (08:59)
[2019-05-28] MEDS: SULFAMETHOX-TMP 800-160MG 1 EACH TAB PO SCH ×2 (08:59→21:06)
[2019-05-28] MEDS: METOPROLOL TARTRATE 50 MG TAB PO SCH ×2 (08:59→21:06)
[2019-05-28] MEDS: ASPIRIN 325 MG TAB PO SCH (08:59)
[2019-05-28] MEDS: predniSONE 20 MG TAB PO SCH (09:00)
[2019-05-28] MEDS: LISINOPRIL 5 MG TAB PO SCH (09:00)
[2019-05-28] MEDS: FUROSEMIDE 10 MG/ML 4 ML VIAL IV SCH ×2 (09:00→21:06)
[2019-05-28 09:36] LABS: Potassium 4.5 mmol/L (3.5-5.1); Total Bilirubin 0.6 mg/dL (0.2-1.3)
--- NOTE | 2019-05-28 15:41 | P.CNPUL ---
History of Present Illness Consult date: 05/28/19 Reason for consult: dyspnea, cough, COPD Chief complaint: Shortness of breath cough and congestion History of present illness: This patient is well-known to me for past medical history of severe COPD emphysema, she has a significant cardiovascular history is baseline ejection fraction of 20% only, she has been having progressive increased shortness of breath with cough congestion without any relief of symptoms started about a month ago, patient was seen in the remote past last time at that time she was undergoing a trial of the Xolair she took it for about 8 months and then just stopped spontaneously, she has been on Coumadin for a higher and mitral valve replacement, her chest x-ray was significant for prominent interstitium, patient did receive some Lasix in the ER with significant relief, she denies any hem optysis but has clear audible wheezing patient did receive a course of steroids from PMD stop about 10 days ago without any significant relief Review of Systems All systems: negative Past Medical History Past Medical History: Atrial Fibrillation, Asthma, Heart Failure, COPD, GI Bleed, Myocardial Infarction (VT), Osteoarthritis (OA), Pneumonia Additional Past Medical History / Comment(s): N,V,hypotensive, chronic back pain Last Myocardial Infarction Date:: unk History of Any Multi-Drug Resistant Organisms: None Reported Past Surgical History: AICD, Section, Heart Catheterization With Stent, Pacemaker, Tubal Ligation Additional Past Surgical History / Comment(s): mitral valve replacement, tubal ligation, Past Anesthesia/Blood Transfusion Reactions: No Reported Reaction Date of Last Stent Placement:: unk Type of Cardiac Device: Permanent Pacemaker, AICD Device Placement Date:: 2014 Past Psychological History: Depression Smoking Status: Current every day smoker Past Alcohol Use History: None Reported Past Drug Use History: None Reported - Past Family History Mother Additional Family Medical History / Comment(s): MOM IN MVA ACCIDENT Father Family Medical History: Coronary Artery Disease (CAD) Additional Family Medical History / Comment(s): CARDIAC DISEASE Medications and Allergies Home Medications Medication Instructions Recorded Confirmed Type Furosemide [Lasix] 40 mg PO BID 02/19/16 05/27/19 History Potassium Chloride 16 meq PO BID 02/19/16 05/27/19 History Simvastatin [Zocor] 40 mg PO HS 02/19/16 05/27/19 History Warfarin [Coumadin] 5 mg PO SUTUWEFRSA 02/19/16 05/27/19 History Aspirin EC [Ecotrin] 325 mg PO DAILY 05/25/17 05/27/19 History Loratadine 10 mg PO DAILY 05/25/17 05/27/19 History Metoprolol Tartrate [Lopressor] 50 mg PO BID 05/25/17 05/27/19 History Albuterol Inhaler [Ventolin Hfa 2 puff INHALATION RT-Q4H PRN 05/31/17 05/27/19 History Inhaler] PARoxetine HCL [Paxil] 40 mg PO QAM 11/21/17 05/27/19 History oxyCODONE-APAP 10-325MG [Percocet 1 tab PO QID 11/21/17 05/27/19 History 10-325 mg] Enalapril [Vasotec] 2.5 mg PO DAILY 04/26/19 05/27/19 History Ranitidine HCl [Zantac] 300 mg PO DAILY 04/26/19 05/27/19 History Warfarin [Coumadin] 2.5 mg PO MOTH 04/26/19 05/27/19 History Budesonide-Formot 160-4.5 Mcg 2 puff INHALATION RT-BID #1 puff 04/29/19 05/27/19 Rx [Symbicort 160-4.5 Mcg Inhaler] Ipratropium-Albuterol Nebulize 3 ml INHALATION RT-Q6H #120 04/29/19 05/27/19 Rx [Duoneb 0.5 mg-3 mg/3 ml Soln] ampul.neb Sennosides [Senokot] 17.2 mg PO BID PRN #20 tab 04/29/19 05/27/19 Rx Allergies Allergy/AdvReac Type Severity Reaction Status Date / Time hydromorphone [From Dilaudid] Allergy Unknown Verified 05/27/19 17:14 levofloxacin [From Levaquin] Allergy Anaphylaxis Verified 05/27/19 17:14 (went into a coma) Penicillins Allergy Rash/Hives Verified 05/27/19 17:14 codeine AdvReac Nausea & Verified 05/27/19 17:14 Vomiting Physical Exam Vitals: Vital Signs Temp Pulse Pulse Resp BP BP Pulse Ox 05/28/19 13:23 72 05/28/19 13:13 98.2 F 71 16 129/68 97 01/27/20 13:08 70 05/28/19 08:41 68 05/28/19 08:23 66 05/28/19 04:54 97.8 F 54 L 16 135/71 95 05/27/19 21:38 98.2 F 70 16 115/73 93 L 05/27/19 19:32 68 05/27/19 19:15 64 05/27/19 17:47 98.2 F 62 16 148/87 98 05/27/19 17:34 98.2 F 62 16 155/78 98 Intake and Output 05/28/19 05/28/19 05/28/19 06:59 14:59 22:59 Other: Voiding Method Bedside Commode Bedside Commode # Voids 3 Weight 89.5 kg - Constitutional General appearance: average body habitus, cooperative, disheveled, mild distress - EENT Eyes: EOMI, PERRLA, poor dentition ENT: normal oropharynx Ears: bilateral: normal - Neck Neck: normal ROM Carotids: bilateral: upstroke normal - Respiratory Respiratory: bilateral: wheezing, prolonged expiration, negative: CTA, diminished, dullness, rales, rhonchi - Cardiovascular Rhythm: regular Heart sounds: normal: S1, S2 - Gastrointestinal General gastrointestinal: decreased bowel sounds, soft - Neurologic Neurologic: CNII-XII intact - Musculoskeletal Musculoskeletal: gait normal, generalized weakness, strength equal bilaterally - Psychiatric Psychiatric: A&O x's 3, appropriate affect, intact judgment & insight Results - Laboratory Findings CBC and BMP: 05/27/19 14:08 05/28/19 07:49 PT/INR, D-dimer PT 31.0 sec (9.0-12.0) H 05/27/19 14:08 INR 3.2 (<1.2) H 05/27/19 14:08 D-Dimer <0.17 mg/L FEU (<0.60) 05/27/19 14:08 Abnormal lab findings: Abnormal Labs 05/27/19 05/27/19 05/27/19 14:08 14:08 15:05 PT 31.0 H INR 3.2 H APTT 44.8 H Chloride 110 H Carbon Dioxide BUN Creatinine Glucose 118 H Urine Protein 1+ H Urine Mucus Rare H 05/28/19 07:49 PT INR APTT Chloride Carbon Dioxide 37 H BUN 18 H Creatinine 1.21 H Glucose 131 H Urine Protein Urine Mucus - Diagnostic Findings Chest x-ray: report reviewed, image reviewed (Prominent interstitium /interstitial infiltrate) Assessment and Plan Assessment: Acute COPD exacerbation Acute exacerbation of congestive heart failure acute on chronic systolic heart failure Mitral valve disease status post mitral valve replacement Long-term anticoagulation Peptic ulcer disease End-stage COPD Plan: Continue prednisone Breathing treatment Observe off of antibiotics We'll get a follow-up chest x-ray in the morning Increase activity as tolerated Would recommend a follow-up in outpatient setting need a PFT and further outpat ient evaluation Time with Patient: Greater than 30
--- NOTE | 2019-05-28 19:21 | P.CRDCN ---
History of Present Illness Consult date: 05/28/19 History of present illness: This is a 68-year-old female with history of ischemic heart disease, mitral valve replacement, cardiomyopathy and chronic combined CHF and also status post AICD placement. Patient is also a chronic smoker. Patient has had repeated admission for exacerbation of COPD and CHF. She is known to have an ejection fraction of 20-25%. She was discharged home in April after she was treated for Bronchitis. She was treated with steroids and antibiotics. She was also sent home on diuretics. Patient stopped taking diuretics at home. Patient is readmitted to the hospital with increasing shortness of breath. Chest x-ray showed some prominence of interstitial and possible pneumonia. Concomitant CHF. ProBNP is more than 3000. Patient was given IV Lasix with improvement of symptoms. She is also on steroids and also antibiotics. She is being followed by a quality control tech. We'll continue current dose of diuretics. Get repeat echocardiogram. Patient is advised to stop smoking. She may be constricted for home oxygen also Review of Systems As per the chart Past Medical History Past Medical History: Atrial Fibrillation, Asthma, Heart Failure, COPD, GI Bleed, Myocardial Infarction ([place]), Osteoarthritis (OA), Pneumonia Additional Past Medical History / Comment(s): N,V,hypotensive, chronic back pain Last Myocardial Infarction Date:: unk History of Any Multi-Drug Resistant Organisms: None Reported Past Surgical History: AICD, Section, Heart Catheterization With Stent, Pacemaker, Tubal Ligation Additional Past Surgical History / Comment(s): mitral valve replacement, tubal ligation, Past Anesthesia/Blood Transfusion Reactions: No Reported Reaction Date of Last Stent Placement:: unk Type of Cardiac Device: Permanent Pacemaker, AICD Device Placement Date:: 2014 Past Psychological History: Depression Smoking Status: Current every day smoker Past Alcohol Use History: None Reported Past Drug Use History: None Reported - Past Family History Mother Additional Family Medical History / Comment(s): MOM IN MVA ACCIDENT Father Family Medical History: Coronary Artery Disease (CAD) Additional Family Medical History / Comment(s): CARDIAC DISEASE Medications and Allergies Home Medications Medication Instructions Recorded Confirmed Type Furosemide [Lasix] 40 mg PO BID 02/19/16 05/27/19 History Potassium Chloride 16 meq PO BID 02/19/16 05/27/19 History Simvastatin [Zocor] 40 mg PO HS 02/19/16 05/27/19 History Warfarin [Coumadin] 5 mg PO [id number] 02/19/16 05/27/19 History Aspirin EC [Ecotrin] 325 mg PO DAILY 05/25/17 05/27/19 History Loratadine 10 mg PO DAILY 05/25/17 05/27/19 History Metoprolol Tartrate [Lopressor] 50 mg PO BID 05/25/17 05/27/19 History Albuterol Inhaler [Ventolin Hfa 2 puff INHALATION RT-Q4H PRN 05/31/17 05/27/19 History Inhaler] PARoxetine HCL [Paxil] 40 mg PO QAM 11/21/17 05/27/19 History oxyCODONE-APAP 10-325MG [Percocet 1 tab PO QID 11/21/17 05/27/19 History 10-325 mg] Enalapril [Vasotec] 2.5 mg PO DAILY 04/26/19 05/27/19 History Ranitidine HCl [Zantac] 300 mg PO DAILY 04/26/19 05/27/19 History Warfarin [Coumadin] 2.5 mg PO MOTH 04/26/19 05/27/19 History Budesonide-Formot 160-4.5 Mcg 2 puff INHALATION RT-BID #1 puff 04/29/19 05/27/19 Rx [Symbicort 160-4.5 Mcg Inhaler] Ipratropium-Albuterol Nebulize 3 ml INHALATION RT-Q6H #120 04/29/19 05/27/19 Rx [Duoneb 0.5 mg-3 mg/3 ml Soln] ampul.neb Sennosides [Senokot] 17.2 mg PO BID PRN #20 tab 04/29/19 05/27/19 Rx Allergies Allergy/AdvReac Type Severity Reaction Status Date / Time hydromorphone [From Dilaudid] Allergy Unknown Verified 05/27/19 17:14 levofloxacin [From Levaquin] Allergy Anaphylaxis Verified 05/27/19 17:14 (went into a coma) Penicillins Allergy Rash/Hives Verified 05/27/19 17:14 codeine AdvReac Nausea & Verified 05/27/19 17:14 Vomiting Physical Exam Vitals: Vital Signs Temp Pulse Pulse Resp BP Pulse Ox 05/28/19 17:10 78 05/28/19 16:59 82 71 16 93 L 05/28/19 13:23 72 05/28/19 13:13 98.2 F 71 16 129/68 97 05/28/19 13:08 70 05/28/19 08:41 68 05/28/19 08:23 66 05/28/19 04:54 97.8 F 54 L 16 135/71 95 05/27/19 21:38 98.2 F 70 16 115/73 93 L 05/27/19 19:32 68 Intake and Output 05/28/19 05/28/19 05/28/19 06:59 14:59 22:59 Intake Total 540 Balance 540 Intake: Oral 540 Other: Voiding Method Bedside Commode Bedside Commode Bedside Commode # Voids 3 3 # Bowel Movements 2 Weight 89.5 kg GENERAL EXAM: Patient is alert and oriented and doesn't appear to be in any acute distress HEENT: Normocephalic. Normal reaction of pupils, equal size, normal range of extraocular motion. No erythema or exudates in the throat. NECK: No masses, no nuchal rigidity. CHEST: No chest wall deformity. LUNGS: Expiratory diffuse wheezes HEART: S1 and S2 normal . Distant heart sounds ABDOMEN: No hepatosplenomegaly, normal bowel sounds, no guarding or rigidity. SKIN: No rashes CENTRAL NERVOUS SYSTEM: No focal deficits. EXTREMITIES: No cyanosis, clubbing or edema. Results 05/27/19 14:08 05/28/19 07:49 Cardiac Enzymes 05/28/19 Range/Units 07:49 AST 23 (14-36) U/L Comprehensive Metabolic Panel 05/28/19 Range/Units 07:49 Sodium 142 (137-145) mmol/L Potassium 4.5 (3.5-5.1) mmol/L Chloride 99 (98-107) mmol/L Carbon Dioxide 37 H (22-30) mmol/L BUN 18 H (7-17) mg/dL Creatinine 1.21 H (0.52-1.04) mg/dL Glucose 131 H (74-99) mg/dL Calcium 9.0 (8.4-10.2) mg/dL AST 23 (14-36) U/L ALT 11 (4-34) U/L Alkaline Phosphatase 91 (38-126) U/L Total Protein 7.0 (6.3-8.2) g/dL Albumin 4.0 (3.5-5.0) g/dL Current Medications Generic Name Dose Route Start Last Admin Trade Name Freq PRN Reason Stop Dose Admin Albuterol/Ipratropium 3 ml 05/27/19 18:10 Duoneb 0.5 Mg-3 Mg/3 Ml Soln INHALATION RT-Q2H PRN Shortness Of Breath Or Wheezing Albuterol/Ipratropium 3 ml 05/27/19 20:00 05/28/19 16:59 Duoneb 0.5 Mg-3 Mg/3 Ml Soln INHALATION 3 ml RT-QID AYANNA Administration Aspirin 325 mg 05/28/19 09:00 05/28/19 08:59 Aspirin PO 325 mg DAILY AYANNA Administration Atorvastatin Calcium 20 mg 05/27/19 21:00 05/27/19 20:50 Lipitor PO 20 mg HS AYANNA Administration Budesonide/Formoterol Fumarate 2 puff 05/27/19 20:00 05/28/19 08:22 Symbicort 160-4.5 Mcg Inhaler INHALATION 2 puff RT-BID AYANNA Administration Furosemide 40 mg 05/27/19 21:00 05/28/19 09:00 Lasix IV 40 mg BID AYANNA Administration Guaifenesin 600 mg 05/27/19 21:00 05/28/19 08:59 Mucinex PO 600 mg Q12HR AYANNA Administration Lisinopril 5 mg 05/28/19 09:00 05/28/19 09:00 Zestril PO 5 mg DAILY AYANNA Administration Loratadine 10 mg 05/28/19 09:00 05/28/19 08:59 Claritin PO 10 mg DAILY AYANNA Administration Melatonin 3 mg 05/27/19 21:00 05/27/19 20:50 Melatonin PO 3 mg HS AYANNA Administration Metoprolol Tartrate 50 mg 05/27/19 21:00 05/28/19 08:59 Lopressor PO 50 mg BID AYANNA Administration Naloxone HCl 0.2 mg 05/27/19 16:59 Narcan IV Q2M PRN Opioid Reversal Oxycodone/Acetaminophen 1 each 05/27/19 17:46 05/28/19 16:58 Percocet 10-325 PO 1 each QID PRN Administration Pain Pantoprazole Sodium 40 mg 05/27/19 18:00 05/28/19 16:58 Protonix PO Not Given AC-BID AYANNA Paroxetine HCl 40 mg 05/28/19 09:00 05/28/19 08:59 Paxil PO 40 mg QAM AYANNA Administration Prednisone 60 mg 05/27/19 18:00 05/28/19 09:00 PO 60 mg DAILY AYANNA Administration Senna 17.2 mg 05/27/19 17:02 Senokot PO BID PRN Constipation Trimethoprim/Sulfamethoxazole 1 each 05/27/19 21:00 05/28/19 08:59 Bactrim Ds PO 1 each BID AYANNA Administration Intake and Output 05/28/19 05/28/19 05/28/19 06:59 14:59 22:59 Intake Total 540 Balance 540 Intake: Oral 540 Other: Voiding Method Bedside Commode Bedside Commode Bedside Commode # Voids 3 3 # Bowel Movements 2 Weight 89.5 kg 05/27/19 14:08 05/28/19 07:49 EKG Interpretations (text) Atrial pacer rhythm Assessment and Plan (1) Congestive heart failure Current Visit: Yes Status: Acute Code(s): I50.9 - HEART FAILURE, UNSPECIFIED SNOMED Code(s): 33595748 (2) History of atrial fibrillation Current Visit: Yes Status: Chronic Code(s): Z86.79 - PERSONAL HISTORY OF OTHER DISEASES OF THE CIRCULATORY SYSTEM SNOMED Code(s): 467179505 (3) Acute exacerbation of COPD with asthma Current Visit: No Status: Acute Code(s): J44.1 - CHRONIC OBSTRUCTIVE PULMONARY DISEASE W (ACUTE) EXACERBATION; J45.901 - UNSPECIFIED ASTHMA WITH (ACUTE) EXACERBATION SNOMED Code(s): 2301173102325 (4) History of ischemic cardiomyopathy Current Visit: No Status: Chronic Code(s): Z86.79 - PERSONAL HISTORY OF OTHER DISEASES OF THE CIRCULATORY SYSTEM SNOMED Code(s): 523827442 (5) History of mitral valve replacement Current Visit: No Status: Chronic Code(s): Z98.890 - OTHER SPECIFIED POSTPROCEDURAL STATES; Z95.2 - PRESENCE OF PROSTHETIC HEART VALVE SNOMED Code(s): 2323743112044 Plan: Patient has acute exacerbation of chronic combined CHF. Still is status post ablation for flutter fibrillation, maintaining sinus rhythm. She also has chronic COPD and mitral valve replacement. Continue with IV diuretics therapy. Continue antibiotics as per pulmonology. Further recommendations depend upon the clinical course. We'll also get an echocardiogram
[2019-05-28] MEDS: MELATONIN 3 MG TABLET PO SCH (21:06)
[2019-05-28] MEDS: ATORVASTATIN 20 MG TAB PO SCH (21:06)
[2019-05-29] MEDS: oxyCODONE-APAP 10-325MG 1 EACH TAB PO PRN ×2 (04:13→20:01)
[2019-05-29] MEDS: SYMBICORT 160-4.5 MCG INHALER INHALATION SCH ×2 (08:11→19:16)
[2019-05-29] MEDS: IPRATROPIUM-ALBUTEROL 3 ML NEB INHALATION SCH ×4 (08:11→19:16)
[2019-05-29] MEDS: ASPIRIN 325 MG TAB PO SCH (08:20)
[2019-05-29] MEDS: PANTOPRAZOLE 40 MG TABLET PO SCH ×2 (08:20→17:40)
[2019-05-29] MEDS: SULFAMETHOX-TMP 800-160MG 1 EACH TAB PO SCH ×2 (08:20→20:00)
[2019-05-29] MEDS: PARoxetine 20 MG TAB PO SCH (08:20)
[2019-05-29] MEDS: predniSONE 20 MG TAB PO SCH (08:20)
[2019-05-29] MEDS: LORATADINE 10 MG TAB PO SCH (08:20)
[2019-05-29] MEDS: FUROSEMIDE 10 MG/ML 4 ML VIAL IV SCH ×2 (08:20→20:01)
[2019-05-29] MEDS: LISINOPRIL 5 MG TAB PO SCH (08:20)
[2019-05-29] MEDS: guaiFENesin 600 MG TABLET.ER PO SCH ×2 (08:20→20:00)
[2019-05-29] MEDS: METOPROLOL TARTRATE 50 MG TAB PO SCH ×2 (08:20→20:01)
--- NOTE | 2019-05-29 08:27 | XR ---
EXAMINATION TYPE: XR chest 1V portable DATE OF EXAM: 05/29/2019 COMPARISON: Prior chest x-ray 05/27/2019 HISTORY: Pneumonia TECHNIQUE: Single frontal view of the chest is obtained. FINDINGS: Generator is present in left pectoral region, intracardiac defibrillator leads present wit hin the right atrium and ventricle. Patient is post median sternotomy. Interstitium is increased. Alexander e parenchymal density is questioned over the right upper lobe. No sizable effusion or evident pneumot horax. Prominence of the pulmonary arteries noted. Patient is rotated. IMPRESSION: Correlate for pulmonary venous hypertension and interstitial edema. Difficult to exclude pneumonia.
[2019-05-29] MEDS ORDERED: FUROSEMIDE 40 MG TAB PO SCH (09:00)
--- NOTE | 2019-05-29 09:02 | P.PN ---
Subjective Progress Note Date: 05/29/19 Principal diagnosis: follow up for SOB due to COPD and CHF non compliance with lasix, continues to be nicotine dependent patient seen and examined, SHE reports that her breathing is as good as it has ever been . i encouraged her to quit smoking again,. denies any chest pain or but she still does feel her breathing a little tight but way better compared to admission . denies any coughing fever or chills \ lenard any abd pain , nausea or vomitng Objective - Vital Signs Vital signs: Vital Signs Temp 98.0 F 05/29/19 05:46 Pulse 92 05/29/19 08:23 Resp 18 05/29/19 05:46 BP 110/62 05/29/19 05:46 Pulse Ox 93 L 05/29/19 05:46 Intake & Output 05/28/19 05/29/19 05/29/19 18:59 06:59 18:59 Intake Total 540 Balance 540 Weight 90.8 kg Intake: Oral 540 Other: Voiding Method Bedside Commode Bedside Commode # Voids 3 3 # Bowel Movements 2 - Exam Constitutional: vital signs stable, Not in acute distress, pleasant, conversant , patient is able to talk full sentences without interruption, no audible wheezing while she is talking Lungs: audible breath sounds throughout , prolonged exp phase with wheezing, no inspiratory rales any more Cardiovascular: Regular rate and rhythm, no murmurs, no gallops, no rubs, no peripheral edema Gastrointestinal: Soft, no tenderness to palpation bowel sounds positive, Extremities: No digital cyanosis , peripheral pulses palpable and equal , no calf muscle tenderness Psych: Alert, oriented to place, person and time, appropriate affect, intact judgment - Labs CBC & Chem 7: 05/27/19 14:08 05/28/19 07:49 Labs: Abnormal Lab Results - Last 24 Hours (Table) 05/28/19 Range/Units 07:49 Carbon Dioxide 37 H (22-30) mmol/L BUN 18 H (7-17) mg/dL Creatinine 1.21 H (0.52-1.04) mg/dL Glucose 131 H (74-99) mg/dL Microbiology - Last 24 Hours (Table) 05/27/19 14:08 Blood Culture - Preliminary Blood No Growth after 24 hours 05/27/19 15:05 Urine Culture - Preliminary Urine,Clean Catch Assessment and Plan Assessment: 68 year old female with chronic systolic CHF most recent LVEF 20% 2017, non compliant with lasix at home, copd with recurrent episodes of exacerbation and nicotine dependant smoking cigarettes. Presents with acute worsening of shortness of breath, orthopnea, PND. Admits to noncompliance with Lasix. She reports recent diagnosis of recurrent UTI started on Bactrim yesterday. Patient admitted for acute systolic CHF exacerbation and acute exacerbation of C OPD with recurrent UTI admitted as an inpatient with anticipated length of stay more than 2 midnights 05/28 patient continues to diuresing well no more leg edema lungs sounds better than yesterday she continues to get short of breath with minimal activity will continue current management for now check ambulatory oxygen saturation 05/29 i think she was diuresed well , and her lungs sounds way better, switch to oral lasix from copd stand point , she showed improvemetn but needs more time ,. continue current therapy await ECHO per cardio , history of systolic CHF with EF 20-25% s/p AICD plan for today to walk her with walker and assess her oxygen , plan on discharge tomorrow with or without oxygen ,, patient does not use home oxygen she goes with her son to his place, I advised that she utilizes home health care, as she stopped her lasix on her own last time, and i dont want her to m make such decisions Plan: Difficulty in breathing secondary to the following Acute systolic CHF exacerbation due to noncompliance with diuretics, improving Acute COPD exacerbation secondary to above Nicotine dependence patient continues to smoke cigarettes Recurrent UTI, partially treated with outpatient Plan Follow-up cultures, still negative Continue with Bactrim for OP UTI Continue with breathing treatments around the clock DuoNeb's when necessary Continue inhalers Systemic oral steroids day 3/ Pulmonary toileting CPT Strictly counseled to quit smoking Patient declined nicotine replacement therapy Assess home oxygen requirement prior to discharge Influenza testing negative Resume her cardiac medications switch to PO lasix Monitor urine output Strict I's and O's Daily weights lost over 5 LBs since admit Chronic low back pain, continue with Percocet History of mitral valve replacements patient on Coumadin Coumadin dosing by pharmacy follow up labs, not back yet anticipated discharge tomorrow with or without oxygen , set up with home health care
[2019-05-29 09:15] LABS: Basophils # (A) 0.1 k/uL (0-0.2); Basophils % (A) 1 %; Eosinophils % (A) 0 %; Lymphocytes # (A) 1.8 k/uL (1.0-4.8); Lymphocytes % (A) 20 %; MCH 31.7 pg (25.0-35.0); MCHC 31.6 g/dL (31.0-37.0); MCV 100.1 fL (80.0-100.0); Macrocytosis Slight; Mean Platelet Volume 7.7; Monocytes # (A) 0.7 k/uL (0-1.0); Monocytes % (A) 7 %; Neutrophils # (A) 6.2 k/uL (1.3-7.7); Neutrophils % (A) 69 %; Platelet Count 350 k/uL (150-450); RBC 4.09 m/uL (3.80-5.40); RDW 14.3 % (11.5-15.5); WBC 8.9 k/uL (3.8-10.6)
[2019-05-29 09:20] LABS: INR 2.2 (<1.2); Prothrombin Time 21.1 sec (9.0-12.0)
[2019-05-29 09:35] LABS: Calcium 8.8 mg/dL (8.4-10.2); Potassium 3.9 mmol/L (3.5-5.1)
--- NOTE | 2019-05-29 11:44 | CDI ---
Documentation Clarification Form Date: 05/29/2019 11:39:02 AM From: Marline Urias RN, CCDS Admit Date: 05/29/2019 08:59:00 AM Patient Name: Nunu Wong Visit Number: [id number] ATTENTION: The Clinical Documentation Specialists (CDI) and [facility] Coding Staff appreciate your assistance in clarifying documentation. Please respond to the clarification below the line at the bottom and electronically sign. The CDI & [facility] Coding staff will review the response and follow-up if needed. Please note: Queries are made part of the Legal Health Record. If you have any questions, please contact the author of this message via ITS. Dr. Orquidea Larson Hx of Atrial Fibrillation is documented in the H&P and Consults and requires further specificity. History/Risk Factors: atrial Fib on home comadin, CHF, COPD, NH, GIB Clinical Indicators: EKG/telemetry: atrial paced Treatment: Consults: Cardiology Coumadin doing daily Lopressor 50 mg PO BID In your professional opinion, can you please clarify the type of Atrial Fibrillation, if known? Chronic/Permanent Paroxysmal Persistent Other, please specify Unable to determine (Last Revision: July 2017) paroxysmal afib MTDD
--- NOTE | 2019-05-29 14:22 | P.PN ---
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 Currently maintained on aspirin 325 mg daily, atorvastatin 20 mg at bedtime, Lasix 40 mg by mouth twice a day, Lopressor 50 mg twice a day, lisinopril 5 mg daily and Coumadin. Blood pressure 110/62 heart rate 88 afebrile maintaining oxygen saturation on nasal cannula. Laboratory data reviewed, WBC 8.9, hemoglobin 13, platelets 350, INR 2.2, sodium 140, potassium 3.9, creatinine 1.14. Repeat chest xray today reveals ongoing interstitial edema and pulmonary hypertension. She is seen and examined sitting up in bed. She states she is quite tired and didn't sleep much last night. Her breathing is stable but no real improvement. Denies chest pain, dizziness or palpitations. GENERAL: Well-appearing, well-nourished and in no acute distress. NECK: Supple without JVD or thyromegaly. LUNGS: Expiratory wheezes and faint bibasilar rales. Respiration equal and unlabored. HEART: Regular rate and rhythm with systolic ejection murmur at the left sternal border, no rubs or gallops. S1 and S2 heard. EXTREMITIES: Normal range of motion, 1+ bilateral lower extremity pitting edema. No clubbing or cyanosis. Peripheral pulses intact. ASSESSMENT Acute on chronic diastolic and systolic heart failure Valvular heart disease status post mitral valve replacement Ischemic cardiomyopathy status post AICD placement Acute exacerbation of COPD Paroxysmal atrial fibrillation status post ablation, maintaining sinus mechanism. On long-term anticoagulation with Coumadin Hypertension Dyslipidemia Chronic nicotine dependence PLAN Echo has been obtained and will be reviewed. Decrease aspirin to 81 mg daily. Check cost of entresto 24/26 mg BID. Hold lisinorpil and initiate entresto tomorrow evening. Lasix has been changed to PO, however would recommend ongoing IV diuresis. Follow renal function and electrolytes daily. Further recommendations to follow based on clinical course. Nurse Practitioner note has been reviewed, I agree with a documented findings and plan of care. Patient was seen and examined. Objective - Vital Signs Vital signs: Vital Signs Temp 98.0 F 05/29/19 05:46 Pulse 88 05/29/19 11:53 Resp 18 05/29/19 05:46 BP 110/62 05/29/19 05:46 Pulse Ox 94 L 05/29/19 09:25 Intake & Output 05/28/19 05/29/19 05/29/19 18:59 06:59 18:59 Intake Total 540 Balance 540 Weight 90.8 kg Intake: Oral 540 Other: Voiding Method Bedside Commode Bedside Commode # Voids 3 3 2 # Bowel Movements 2 - Labs CBC & Chem 7: 05/29/19 08:18 05/29/19 08:18 Labs: Abnormal Lab Results - Last 24 Hours (Table) 05/29/19 05/29/19 05/29/19 Range/Units 08:18 08:18 08:18 MCV 100.1 H (80.0-100.0) fL PT 21.1 H (9.0-12.0) sec INR 2.2 H (<1.2) Carbon Dioxide 35 H (22-30) mmol/L BUN 26 H (7-17) mg/dL Creatinine 1.14 H (0.52-1.04) mg/dL Glucose 101 H (74-99) mg/dL Microbiology - Last 24 Hours (Table) 05/27/19 15:05 Urine Culture - Final Urine,Clean Catch 05/27/19 14:08 Blood Culture - Preliminary Blood No Growth after 24 hours
[2019-05-29] MEDS ORDERED: WARFARIN 5 MG TAB PO ONE (18:00)
--- NOTE | 2019-05-29 19:48 | ECHOF ---
Referral Reason:Chest pain and cardiomyopathy MEASUREMENTS -------- HEIGHT: 160.0 cm WEIGHT: 89.4 kg BP: 110/62 RVIDd: 4.0 cm (< 3.3) IVSd: 1.3 cm (0.6 - 1.1) LVIDd: 7.5 cm (3.9 - 5.3) LVPWd: 1.4 cm (0.6 - 1.1) IVSs: 1.4 cm LVIDs: 6.9 cm LVPWs: 1.1 cm LAESV Index (A-L): 32.73 ml/m Ao Diam: 2.5 cm (2.0 - 3.7) AV Cusp: 1.7 cm (1.5 - 2.6) MV E Pillo: 1.47 m/s MV DecT: 542 ms MV A Pillo: 0.72 m/s MV E/A Ratio: 2.05 RAP: 5.00 mmHg RVSP: 35.19 mmHg FINDINGS -------- Sinus rhythm. This was a technically difficult study with suboptimal apical views. The left ventricle is severely dilated. There is mild concentric left ventricular hypertrophy. Th ere is severe global hypokinesis of LV . Overall left ventricular systolic function is moderate-sev erely impaired with, an EF between 30 - 35 %. Left ventricular fillimg pressure cannot be estimated due to severe mitral annular calcification. The right ventricle is mildly enlarged. LA is moderately dilated 34-39 ml/m2 The right atrium is mildly enlarged. 5.0mg of Lumason was utilized for enhancement of images Interatrial and interventricular septum intact. There is mild aortic valve sclerosis. There is no evidence of aortic regurgitation. There is no e vidence of aortic stenosis. Severe mitral annular calcification present. There is mild stenosis of the bioprosthetic mitral kati ve. Mild tricuspid regurgitation present. There is mild pulmonary hypertension. The right ventricular systolic pressure, as measured by Doppler, is 35.19mmHg. Trace/mild (physiologic) pulmonic regurgitation. The aortic root size is normal. IVC Not well visulized. There is no pericardial effusion. CONCLUSIONS -------- 1. Sinus rhythm. 2. This was a technically difficult study with suboptimal apical views. 3. The left ventricle is severely dilated. 4. There is mild concentric left ventricular hypertrophy. 5. There is severe global hypokinesis of LV . 6. Overall left ventricular systolic function is moderate-severely impaired with, an EF between 30 - 35 %. 7. Left ventricular fillimg pressure cannot be estimated due to severe mitral annular calcification. 8. The right ventricle is mildly enlarged. 9. LA is moderately dilated 34-39 ml/m2 10. The right atrium is mildly enlarged. 11. 5.0mg of Lumason was utilized for enhancement of images 12. Interatrial and interventricular septum intact. 13. There is mild aortic valve sclerosis. 14. There is no evidence of aortic regurgitation. 15. There is no evidence of aortic stenosis. 16. Severe mitral annular calcification present. 17. There is mild stenosis of the bioprosthetic mitral valve. 18. Mild tricuspid regurgitation present. 19. There is mild pulmonary hypertension. 20. The right ventricular systolic pressure, as measured by Doppler, is 35.19mmHg. 21. Trace/mild (physiologic) pulmonic regurgitation. 22. The aortic root size is normal. 23. IVC Not well visulized. 24. There is no pericardial effusion. LICENSE DISTRIBUTOR: Coty Bello RDCS
[2019-05-29] MEDS: ATORVASTATIN 20 MG TAB PO SCH (20:01)
[2019-05-29] MEDS: MELATONIN 3 MG TABLET PO SCH (20:01)
[2019-05-30] MEDS: oxyCODONE-APAP 10-325MG 1 EACH TAB PO PRN ×3 (03:19→21:59)
[2019-05-30] MEDS: PANTOPRAZOLE 40 MG TABLET PO SCH ×2 (07:54→17:46)
[2019-05-30] MEDS: predniSONE 20 MG TAB PO SCH (07:54)
[2019-05-30] MEDS: FUROSEMIDE 10 MG/ML 4 ML VIAL IV SCH (07:54)
[2019-05-30] MEDS: ASPIRIN 81 MG PO SCH (07:55)
[2019-05-30] MEDS: guaiFENesin 600 MG TABLET.ER PO SCH ×2 (07:55→20:26)
[2019-05-30] MEDS: PARoxetine 20 MG TAB PO SCH (07:55)
[2019-05-30] MEDS: METOPROLOL TARTRATE 50 MG TAB PO SCH ×2 (07:56→20:26)
[2019-05-30] MEDS: SULFAMETHOX-TMP 800-160MG 1 EACH TAB PO SCH ×2 (07:56→20:26)
[2019-05-30] MEDS: LORATADINE 10 MG TAB PO SCH (07:56)
[2019-05-30] MEDS: SYMBICORT 160-4.5 MCG INHALER INHALATION SCH (09:45)
[2019-05-30] MEDS: IPRATROPIUM-ALBUTEROL 3 ML NEB INHALATION SCH ×4 (09:46→20:23)
[2019-05-30 09:52] LABS: INR 1.8 (<1.2); Prothrombin Time 17.5 sec (9.0-12.0)
[2019-05-30 10:06] LABS: Calcium 9.5 mg/dL (8.4-10.2); Potassium 4.4 mmol/L (3.5-5.1)
--- NOTE | 2019-05-30 10:31 | P.PN ---
Subjective Progress Note Date: 05/29/19 Principal diagnosis: Acute COPD exacerbation Acute exacerbation of congestive heart failure acute on chronic systolic heart failure Mitral valve disease status post mitral valve replacement Long-term anticoagulation Peptic ulcer disease End-stage COPD 05/29/2019, patient seen eval examined during the rounds labs reviewed medications reviewed care plan discussed with the patient still have cough congestion shortness of breath remains on IV steroids breathing treatments she is anticoagulated PT/INR is well therapeutic range, patient remains on Lasix by mouth, still short of breath, last chest x-ray earlier this morning interstitial edema and pulmonary venous hypertension was noted This patient is well-known to me for past medical history of severe COPD emphysema, she has a significant cardiovascular history is baseline ejection fraction of 20% only, she has been having progressive increased shortness of breath with cough congestion without any relief of symptoms started about a month ago, patient was seen in the remote past last time at that time she was undergoing a trial of the Xolair she took it for about 8 months and then just stopped spontaneously, she has been on Coumadin for a higher and mitral valve replacement, her chest x-ray was significant for prominent interstitium, patient did receive some Lasix in the ER with significant relief, she denies any hemoptysis but has clear audible wheezing patient did receive a course of steroids from PMD stop about 10 days ago without any significant relief Objective - Vital Signs Vital signs: Vital Signs Temp 98.0 F 05/29/19 12:52 Pulse 88 05/29/19 15:59 Resp 20 05/29/19 15:59 BP 126/78 05/29/19 12:52 Pulse Ox 92 L 05/29/19 15:39 Intake & Output 05/28/19 05/29/19 05/29/19 18:59 06:59 18:59 Intake Total 540 Balance 540 Weight 90.8 kg Intake: Oral 540 Other: Voiding Method Bedside Commode Bedside Commode # Voids 3 3 2 # Bowel Movements 2 - Exam - Constitutional General appearance: average body habitus, cooperative, disheveled, mild distress - EENT Eyes: EOMI, PERRLA, poor dentition ENT: normal oropharynx Ears: bilateral: normal - Neck Neck: normal ROM Carotids: bilateral: upstroke normal - Respiratory Respiratory: bilateral: wheezing, prolonged expiration, negative: CTA, diminished, dullness, rales, rhonchi - Cardiovascular Rhythm: regular Heart sounds: normal: S1, S2 - Gastrointestinal General gastrointestinal: decreased bowel sounds, soft - Neurologic Neurologic: CNII-XII intact - Musculoskeletal Musculoskeletal: gait normal, generalized weakness, strength equal bilaterally - Psychiatric Psychiatric: A&O x's 3, appropriate affect, intact judgment & insight - Labs CBC & Chem 7: 05/29/19 08:18 05/30/19 08:38 Labs: Abnormal Lab Results - Last 24 Hours (Table) 05/29/19 05/29/19 05/29/19 Range/Units 08:18 08:18 08:18 MCV 100.1 H (80.0-100.0) fL PT 21.1 H (9.0-12.0) sec INR 2.2 H (<1.2) Carbon Dioxide 35 H (22-30) mmol/L BUN 26 H (7-17) mg/dL Creatinine 1.14 H (0.52-1.04) mg/dL Glucose 101 H (74-99) mg/dL Microbiology - Last 24 Hours (Table) 05/27/19 14:08 Blood Culture - Preliminary Blood No Growth after 48 hours 05/27/19 15:05 Urine Culture - Final Urine,Clean Catch Assessment and Plan Assessment: Acute COPD exacerbation Acute exacerbation of congestive heart failure acute on chronic systolic heart failure Mitral valve disease status post mitral valve replacement Long-term anticoagulation Peptic ulcer disease End-stage COPD Plan: Continue prednisone Breathing treatment Observe off of antibiotics Reviewed follow-up chest x-ray in the morning Increase activity as tolerated Would recommend a follow-up in outpatient setting need a PFT and further outpatient evaluation Time with Patient: Greater than 30
--- NOTE | 2019-05-30 10:33 | P.PN ---
Subjective Progress Note Date: 05/30/19 Principal diagnosis: Acute COPD exacerbation Acute exacerbation of congestive heart failure acute on chronic systolic heart failure Mitral valve disease status post mitral valve replacement Long-term anticoagulation Peptic ulcer disease End-stage COPD 05/30/2019, patient has been still having shortness of breath with cough congestion yesterday chest x-ray reviewed overall stable, patient remains on oral steroids and breathing treatment, along with anticoagulation 05/29/2019, patient seen eval examined during the rounds labs reviewed medications reviewed care plan discussed with the patient still have cough congestion shortness of breath remains on IV steroids breathing treatments she is anticoagulated PT/INR is well therapeutic range, patient remains on Lasix by mouth, still short of breath, last chest x-ray earlier this morning interstitial edema and pulmonary venous hypertension was noted This patient is well-known to me for past medical history of severe COPD emphysema, she has a significant cardiovascular history is baseline ejection fraction of 20% only, she has been having progressive increased shortness of breath with cough congestion without any relief of symptoms started about a month ago, patient was seen in the remote past last time at that time she was undergoing a trial of the Xolair she took it for about 8 months and then just stopped spontaneously, she has been on Coumadin for a higher and mitral valve replacement, her chest x-ray was significant for prominent interstitium, patient did receive some Lasix in the ER with significant relief, she denies any hemoptysis but has clear audible wheezing patient did receive a course of ster oids from PMD stop about 10 days ago without any significant relief, she does have symptoms of ongoing snoring intermittent apnea and poor quality of sleep Objective - Vital Signs Vital signs: Vital Signs Temp 98 F 05/30/19 05:05 Pulse 85 05/30/19 10:02 Resp 20 05/30/19 08:00 BP 130/79 05/30/19 05:05 Pulse Ox 92 L 05/30/19 09:46 Intake & Output 05/29/19 05/30/19 05/30/19 18:59 06:59 18:59 Intake Total 540 240 Balance 540 240 Weight 89.5 kg Intake: Oral 540 240 Other: Voiding Method Bedside Commode Bedside Commode # Voids 5 2 - Exam - Constitutional General appearance: average body habitus, cooperative, disheveled, mild distress - EENT Eyes: EOMI, PERRLA, poor dentition ENT: normal oropharynx Ears: bilateral: normal - Neck Neck: normal ROM Carotids: bilateral: upstroke normal - Respiratory Respiratory: bilateral: wheezing, prolonged expiration, negative: CTA, diminished, dullness, rales, rhonchi - Cardiovascular Rhythm: regular Heart sounds: normal: S1, S2 - Gastrointestinal General gastrointestinal: decreased bowel sounds, soft - Neurologic Neurologic: CNII-XII intact - Musculoskeletal Musculoskeletal: gait normal, generalized weakness, strength equal bilaterally - Psychiatric Psychiatric: A&O x's 3, appropriate affect, intact judgment & insight - Labs CBC & Chem 7: 05/29/19 08:18 05/30/19 08:38 Labs: Abnormal Lab Results - Last 24 Hours (Table) 05/30/19 05/30/19 Range/Units 08:38 08:39 PT 17.5 H (9.0-12.0) sec INR 1.8 H (<1.2) Carbon Dioxide 33 H (22-30) mmol/L BUN 31 H (7-17) mg/dL Creatinine 1.10 H (0.52-1.04) mg/dL Glucose 120 H (74-99) mg/dL Microbiology - Last 24 Hours (Table) 05/27/19 14:08 Blood Culture - Preliminary Blood No Growth after 48 hours 05/27/19 15:05 Urine Culture - Final Urine,Clean Catch Assessment and Plan Assessment: Acute COPD exacerbation Acute exacerbation of congestive heart failure acute on chronic systolic heart failure Mitral valve disease status post mitral valve replacement Long-term anticoagulation Peptic ulcer disease End-stage COPD Plan: Continue prednisone Breathing treatment Observe off of antibiotics Reviewed follow-up chest x-ray yesterday Increase activity as tolerated Would recommend a follow-up in outpatient setting need a PFT and further outpatient evaluation Patient needs to be evaluated for sleep disorder breathing and sleep apnea Time with Patient: Greater than 30
--- NOTE | 2019-05-30 10:39 | CDI ---
Documentation Clarification Form Date: 05/30/2019 10:36:07 AM From: Marline Urias RN, CCDS Admit Date: 05/29/2019 08:59:00 AM Patient Name: Nunu Wong Visit Number: [id number] ATTENTION: The Clinical Documentation Specialists (CDI) and [facility] Coding Staff appreciate your assistance in clarifying documentation. Please respond to the clarification below the line at the bottom and electronically sign. The CDI & [facility] Coding staff will review the response and follow-up if needed. Please note: Queries are made part of the Legal Health Record. If you have any questions, please contact the author of this message via ITS. Dr. Orquidea Larson History/Risk Factors: 04/29/19 Patients baseline BUN/CR/GFR: 27/.94/62 A/C Combined CHF Clinical Indicators: Current BUN: 01/17/ Cr: .84/1.21/1.14/1.1 GFR: 71/46/49/51 Treatment: Monitoring renal status per progress notes Lasix 40 mg IVP Q 12 hrs IVF - none In order to capture the severity of condition, please clarify if the condition signifies: Acute renal failure, Please specify etiology (if known): Cortical Necrosis Medullary Necrosis Tubular Necrosis Acute kidney injury Acute on chronic renal failure CKD Stage 1 GFR >90 CKD Stage 2 GFR 60-89 CKD Stage 3 GFR 30-59 CKD Stage 4 GFR 15-29 CKD Stage 5 GFR <15 Chronic renal failure/Chronic Kidney disease (CKD) please stage (if known): CKD Stage 1 GFR >90 CKD Stage 2 GFR 60-89 CKD Stage 3 GFR 30-59 CKD Stage 4 GFR 15-29 CKD Stage 5 GFR <15 Other, please specify Unable to determine (Last Revision: July 2017) Acute kidney injury MTDD
--- NOTE | 2019-05-30 11:01 | P.PN ---
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 Currently maintained on aspirin 325 mg daily, atorvastatin 20 mg at bedtime, Lasix 40 mg by mouth twice a day, Lopressor 50 mg twice a day, lisinopril 5 mg daily and Coumadin. Blood pressure 110/62 heart rate 88 afebrile maintaining oxygen saturation on nasal cannula. Laboratory data reviewed, WBC 8.9, hemoglobin 13, platelets 350, INR 2.2, sodium 140, potassium 3.9, creatinine 1.14. Repeat chest xray today reveals ongoing interstitial edema and pulmonary hypertension. She is seen and examined sitting up in bed. She states she is quite tired and didn't sleep much last night. Her breathing is stable but no real improvement. Denies chest pain, dizziness or palpitations. 05/30/2019 Pt is seen and examined sitting up in bed. She continues to cough and feel short of breath. Her cough is quite congested however she is not bringing up any significant sputum. She denies chest pain, dizziness, palpitations or shortness of breath. Entresto is covered at a cost $3.90/month. This will be initiated to start tomorrow AM. Blood pressure 130/79 heart rate 85 afebrile and maintaining oxygen saturation on nasal cannula. Laboratory data reviewed, INR 1.8, sodium 142, potassium 4.4, creatinine 1.1. Echocardiogram revealed impaired LV systolic function with ejection fraction 30-35%, severe global hypokinesia, mild aortic valve sclerosis, severe mitral annular calcification, mild stenosis of the bioprosthetic mitral valve, mild TR and mild pulmonary hypertension with an RVSP of 35 mmHg GENERAL: Well-appearing, well-nourished and in no acute distress. NECK: Supple without JVD or thyromegaly. LUNGS: Expiratory wheezes, no rales or rhonchi. Respiration equal and unlabored. Persistent cough. HEART: Regular rate and rhythm with systolic ejection murmur at the left sternal border, no rubs or gallops. S1 and S2 heard. EXTREMITIES: Normal range of motion, no lower extremity pitting edema. No clubbing or cyanosis. Peripheral pulses intact. ASSESSMENT Acute on chronic diastolic and systolic heart failure Valvular heart disease status post mitral valve replacement Ischemic cardiomyopathy status post AICD placement Acute exacerbation of COPD, maintained on updrafts, antibiotics and steroids Paroxysmal atrial fibrillation status post ablation, maintaining sinus mechanism. On long-term anticoagulation with Coumadin Hypertension Dyslipidemia Chronic nicotine dependence PLAN Transition to PO lasix 40 mg BID. Entresto will start tomorrow morning. Continue to follow renal function daily and assess for tolerance of Entresto. Further recommendations to follow. Nurse Practitioner note has been reviewed, I agree with a documented findings and plan of care. Patient was seen and examined. Objective - Vital Signs Vital signs: Vital Signs Temp 98 F 05/30/19 05:05 Pulse 85 05/30/19 10:02 Resp 20 05/30/19 08:00 BP 130/79 05/30/19 05:05 Pulse Ox 92 L 05/30/19 09:46 Intake & Output 05/29/19 05/30/19 05/30/19 18:59 06:59 18:59 Intake Total 540 240 Balance 540 240 Weight 89.5 kg Intake: Oral 540 240 Other: Voiding Method Bedside Commode Bedside Commode # Voids 5 2 - Labs CBC & Chem 7: 05/29/19 08:18 05/30/19 08:38 Labs: Abnormal Lab Results - Last 24 Hours (Table) 05/30/19 05/30/19 Range/Units 08:38 08:39 PT 17.5 H (9.0-12.0) sec INR 1.8 H (<1.2) Carbon Dioxide 33 H (22-30) mmol/L BUN 31 H (7-17) mg/dL Creatinine 1.10 H (0.52-1.04) mg/dL Glucose 120 H (74-99) mg/dL Microbiology - Last 24 Hours (Table) 05/27/19 14:08 Blood Culture - Preliminary Blood No Growth after 48 hours 05/27/19 15:05 Urine Culture - Final Urine,Clean Catch
[2019-05-30] MEDS: FUROSEMIDE 40 MG TAB PO SCH (16:16)
[2019-05-30] MEDS ORDERED: WARFARIN 3 MG TAB PO ONE (18:00)
[2019-05-30] MEDS: BUDESONIDE 1 MG/2 ML NEBU INHALATION SCH (20:22)
[2019-05-30] MEDS: FORMOTEROL FUMARATE 20 MCG/2 ML NEBU INHALATION SCH (20:23)
[2019-05-30] MEDS: MELATONIN 3 MG TABLET PO SCH (20:26)
[2019-05-30] MEDS: ATORVASTATIN 20 MG TAB PO SCH (20:27)
[2019-05-30] MEDS ORDERED: SACUBITRIL/VALSARTAN 24 MG-26 MG TABLET PO SCH (21:00)
--- NOTE | 2019-05-30 23:27 | P.PN ---
Progress Note - Text Progress Note Date: 05/30/19 Presenting complaint: Shortness of breath Interval history: This is a 68-year-old patient of Dr. Ervin adame. Patient was admitted in the end of April with acute COPD exacerbation and tracheobronchitis. Patient now presents for short of breath edema tired. Admitted with-COPD exacerbation, CHF exacerbation Today-short of breath and wheezing some cough did tolerate some diet no fever no chills. Sitting up Review of systems: Was done for constitutional, cardiovascular, GI, pulmonary. relevant finding as above Active Medications Albuterol/Ipratropium (Duoneb 0.5 Mg-3 Mg/3 Ml Soln) 3 ml INHALATION RT-Q2H PRN PRN Reason: Shortness Of Breath Or Wheezing Albuterol/Ipratropium (Duoneb 0.5 Mg-3 Mg/3 Ml Soln) 3 ml INHALATION RT-Q4H [facility] Last Admin: 05/30/19 20:23 Dose: 3 ml Documented by: Aspirin (Aspirin) 81 mg PO DAILY [facility] Last Admin: 05/30/19 07:55 Dose: 81 mg Documented by: Atorvastatin Calcium (Lipitor) 20 mg PO [facility] Last Admin: 05/30/19 20:27 Dose: 20 mg Documented by: Budesonide (Pulmicort) 1 mg INHALATION RT-BID [facility] Last Admin: 05/30/19 20:22 Dose: 1 mg Documented by: Formoterol Fumarate (Perforomist) 20 mcg INHALATION RT-BID [facility] Last Admin: 05/30/19 20:23 Dose: 20 mcg Documented by: Furosemide (Lasix) 40 mg PO BID@0900,1600 [facility] Last Admin: 05/30/19 16:16 Dose: 40 mg Documented by: Guaifenesin (Mucinex) 1,200 mg PO Q12HR [facility] Last Admin: 05/30/19 20:26 Dose: 1,200 mg Documented by: Loratadine (Claritin) 10 mg PO DAILY [facility] Last Admin: 05/30/19 07:56 Dose: 10 mg Documented by: Melatonin (Melatonin) 3 mg PO [facility] Last Admin: 05/30/19 20:26 Dose: 3 mg Documented by: Metoprolol Tartrate (Lopressor) 50 mg PO BID [facility] Last Admin: 05/30/19 20:26 Dose: 50 mg Documented by: Miscellaneous Information (Coumadin Per Pharmacy) 1 each MISCELLANE DIRECTED PRN; Protocol PRN Reason: Per Protocol Naloxone HCl (Narcan) 0.2 mg IV Q2M PRN PRN Reason: Opioid Reversal Oxycodone/Acetaminophen (Percocet 10-325) 1 each PO QID PRN PRN Reason: Pain Last Admin: 05/30/19 21:59 Dose: 1 each Documented by: Pantoprazole Sodium (Protonix) 40 mg PO AC-BID [facility] Last Admin: 05/30/19 17:46 Dose: 40 mg Documented by: Paroxetine HCl (Paxil) 40 mg PO QAM [facility] Last Admin: 05/30/19 07:55 Dose: 40 mg Documented by: Prednisone () 60 mg PO DAILY [facility] Last Admin: 05/30/19 07:54 Dose: 60 mg Documented by: Sacubitril/Valsartan (Entresto 24 Mg-26 Mg Tablet) 1 each PO BID [facility] Senna (Senokot) 17.2 mg PO BID PRN PRN Reason: Constipation Trimethoprim/Sulfamethoxazole (Bactrim Ds) 1 each PO BID [facility] Last Admin: 05/30/19 20:26 Dose: 1 each Documented by: On examination: VITAL SIGNS: 97.9, 69, 14, 134/82, 96% on 3 L GENERAL APPEARANCE: Sitting of the bed, but tired. HEENT: Normal external appearance of nose and ear. Oral cavity normal EYES: Pupils equal. Conjunctiva normal. NECK: JVD not raised. Mass not palpable. RESPIRATORY: Respiratory effort increased,. Decreased air entry prolonged expiration and wheezing. Some basilar crackles CARDIOVASCULAR: First and second sounds normal. No edema. ABDOMEN: Soft. Liver and spleen not palpable. No tenderness. No mass palpable. PSYCHIATRY: Alert and oriented x3. Mood and affect but anxious. INVESTIGATIONS, reviewed in the clinical context: White count 8.9 hemoglobin 13 eyes are 1.8 potassium 4.4 bun 31 creatinine 1.10 Previous testing: Influenza type A and type B both negative Creatinine 0.84 patient EKG tracing personally reviewed by me-atrial paced 2-D echocardiogram-EF 30-35% receive a global hypokinesia, severe mitral annular calcification Chest x-ray film personally reviewed by me-pulmonary edema and possible in filtrate Assessment: -Acute on chronic congestive heart failure from systolic dysfunction EF 30-35% -Pneumonia suspect gram-negative organism, slow to respond -Persistent atrial fibrillation -Acute COPD exacerbation in a current smoker, slow to respond -Chronic nicotine dependence patient cigarette smoker -Coronary artery disease with prior history of stent -Primary osteoarthritis -Coumadin monitoring Plan: We'll add nebulized steroids, increase the frequency of nebulized broncho-titers every 4 hours. Also add Mucinex thousand milligrams every 12. Steroids to continue. Patient is being started on Entresto by cardiology. Patient is on oral Lasix. Discussed with the patient. Probably still the hospital for at least couple of days. Encouraged to be out of bed.
[2019-05-31] MEDS: IPRATROPIUM-ALBUTEROL 3 ML NEB INHALATION SCH ×7 (00:01→23:57)
[2019-05-31] MEDS: predniSONE 20 MG TAB PO SCH (08:00)
[2019-05-31] MEDS: ASPIRIN 81 MG PO SCH (08:01)
[2019-05-31] MEDS: PANTOPRAZOLE 40 MG TABLET PO SCH ×2 (08:01→17:19)
[2019-05-31] MEDS: guaiFENesin 600 MG TABLET.ER PO SCH ×2 (08:01→20:43)
[2019-05-31] MEDS: METOPROLOL TARTRATE 50 MG TAB PO SCH ×2 (08:01→20:43)
[2019-05-31] MEDS: LORATADINE 10 MG TAB PO SCH (08:01)
[2019-05-31] MEDS: FUROSEMIDE 40 MG TAB PO SCH (08:01)
[2019-05-31] MEDS: PARoxetine 20 MG TAB PO SCH (08:02)
[2019-05-31] MEDS: SULFAMETHOX-TMP 800-160MG 1 EACH TAB PO SCH ×2 (08:02→20:42)
[2019-05-31] MEDS: SACUBITRIL/VALSARTAN 24 MG-26 MG TABLET PO SCH ×2 (08:02→20:42)
[2019-05-31] MEDS: BUDESONIDE 1 MG/2 ML NEBU INHALATION SCH ×2 (09:50→19:27)
[2019-05-31 09:57] LABS: INR 2.4 (<1.2); Prothrombin Time 23.8 sec (9.0-12.0)
[2019-05-31 10:02] LABS: Calcium 9.2 mg/dL (8.4-10.2); Potassium 3.8 mmol/L (3.5-5.1)
[2019-05-31] MEDS: FORMOTEROL FUMARATE 20 MCG/2 ML NEBU INHALATION SCH ×2 (10:06→19:42)
[2019-05-31] MEDS: FUROSEMIDE 10 MG/ML 4 ML VIAL IV SCH ×2 (12:09→20:43)
[2019-05-31] MEDS: oxyCODONE-APAP 10-325MG 1 EACH TAB PO PRN ×2 (12:29→20:42)
--- NOTE | 2019-05-31 14:50 | XR ---
EXAMINATION TYPE: XR chest 2V DATE OF EXAM: 05/31/2019 COMPARISON: Prior chest x-ray 05/29/2019, CT 02/22/2016 HISTORY: Shortness of breath TECHNIQUE: Frontal and lateral views of the chest are obtained. FINDINGS: Patient is post median sternotomy. There is a generator in the left pectoral region, intrac ardiac defibrillator leads present in the right atrium and ventricle. There is likely a spinal curvat ure. There are overlying cardiac leads. There is no focal air space opacity, pleural effusion, or pne umothorax seen. Lung herniation suspected along the right lateral chest margin as on prior, postop ch anges are suspected. There is eventration of the hemidiaphragms. The cardiac silhouette size is stabl e, accentuated appearance may be present due to rotation. The osseous structures are intact. IMPRESSION: No acute cardiopulmonary process. There is improvement in volume status, aeration compar ed to prior exam
--- NOTE | 2019-05-31 15:27 | P.PN ---
Subjective Progress Note Date: 05/31/19 Principal diagnosis: Acute COPD exacerbation Acute exacerbation of congestive heart failure acute on chronic systolic heart failure Mitral valve disease status post mitral valve replacement Long-term anticoagulation Peptic ulcer disease End-stage COPD 05/31/2019, patient is having some productive sputum now, yellowish in color with streaks of blood is there, patient is on Coumadin as well, we'll check sputum for Gram stain and culture also obtain a computed tomography scan of the chest for hemoptysis, chest x-ray this morning essentially stable no evidence of pneumonia has been seen 05/30/2019, patient has been still having shortness of breath with cough congestion yesterday chest x-ray reviewed overall stable, patient remains on oral steroids and breathing treatment, along with anticoagulation 05/29/2019, patient seen eval examined during the rounds labs reviewed medications reviewed care plan discussed with the patient still have cough congestion shortness of breath remains on IV steroids breathing treatments she is anticoagulated PT/INR is well therapeutic range, patient remains on Lasix by mouth, still short of breath, last chest x-ray earlier this morning interstitial edema and pulmonary venous hypertension was noted This patient is well-known to me for past medical history of severe COPD emphysema, she has a significant cardiovascular history is baseline ejection fraction of 20% only, she has been having progressive increased shortness of prashanth ath with cough congestion without any relief of symptoms started about a month ago, patient was seen in the remote past last time at that time she was undergoing a trial of the Xolair she took it for about 8 months and then just stopped spontaneously, she has been on Coumadin for a higher and mitral valve replacement, her chest x-ray was significant for prominent interstitium, patient did receive some Lasix in the ER with significant relief, she denies any hemoptysis but has clear audible wheezing patient did receive a course of steroids from PMD stop about 10 days ago without any significant relief, she does have symptoms of ongoing snoring intermittent apnea and poor quality of sleep Objective - Vital Signs Vital signs: Vital Signs Temp 97.5 F L 05/31/19 13:35 Pulse 72 05/31/19 13:35 Resp 18 05/31/19 13:35 BP 112/68 05/31/19 13:35 Pulse Ox 93 L 05/31/19 13:35 Intake & Output 05/30/19 05/31/19 05/31/19 18:59 06:59 18:59 Intake Total 780 400 Balance 780 400 Weight 87.5 kg Intake: Oral 780 400 Other: Voiding Method Bedside Commode Bedside Commode Bedside Commode # Voids 3 1 - Exam - Constitutional General appearance: average body habitus, cooperative, disheveled, mild distress - EENT Eyes: EOMI, PERRLA, poor dentition ENT: normal oropharynx Ears: bilateral: normal - Neck Neck: normal ROM Carotids: bilateral: upstroke normal - Respiratory Respiratory: bilateral: wheezing, prolonged expiration, negative: CTA, d iminished, dullness, rales, rhonchi - Cardiovascular Rhythm: regular Heart sounds: normal: S1, S2 - Gastrointestinal General gastrointestinal: decreased bowel sounds, soft - Neurologic Neurologic: CNII-XII intact - Musculoskeletal Musculoskeletal: gait normal, generalized weakness, strength equal bilaterally - Psychiatric Psychiatric: A&O x's 3, appropriate affect, intact judgment & insight - Labs CBC & Chem 7: 05/29/19 08:18 05/31/19 08:37 Labs: Abnormal Lab Results - Last 24 Hours (Table) 05/31/19 05/31/19 Range/Units 08:37 08:37 PT 23.8 H (9.0-12.0) sec INR 2.4 H (<1.2) BUN 30 H (7-17) mg/dL Creatinine 1.09 H (0.52-1.04) mg/dL Glucose 108 H (74-99) mg/dL Microbiology - Last 24 Hours (Table) 05/27/19 14:08 Blood Culture - Preliminary Blood No Growth after 72 hours Assessment and Plan Assessment: Hemoptysis likely related to inflammation of the lung but however pneumonia or other abnormality cannot be excluded planned to get a computed tomography scan of the chest Acute COPD exacerbation Acute exacerbation of congestive heart failure acute on chronic systolic heart failure Mitral valve disease status post mitral valve replacement Long-term anticoagulation Peptic ulcer disease End-stage COPD Plan: Computed tomography scan of the chest Continue prednisone Breathing treatment Observe off of antibiotics Reviewed follow-up chest x-ray yesterday Increase activity as tolerated Would recommend a follow-up in outpatient setting need a PFT and further outpatient evaluation Patient needs to be evaluated for sleep disorder breathing and sleep apnea Time with Patient: Greater than 30
--- NOTE | 2019-05-31 16:30 | CT ---
EXAMINATION TYPE: CT chest wo con DATE OF EXAM: 05/31/2019 COMPARISON: Chest x-ray earlier today HISTORY: Hemoptysis. CT DLP: 676 mGycm. Automated Exposure Control for Dose Reduction was Utilized. TECHNIQUE: CT scan of the thorax is performed without IV contrast. FINDINGS: LUNGS: Partial right mid anterior rib resection redemonstrated. Moderate emphysematous change most prominent in the upper lungs with some areas of groundglass opacit y noted near axial image 14 for reference. Additional central areas of groundglass opacity in the lef t lower lobe there is axial image 23 and multifocal areas in the periphery of the left lower lobe. Th ere is suggestion of a thick walled subcentimeter cavitary lesion superior aspect left lower lobe see n best coronal image 61 and sagittal image 90. There is some anterior right mid to lower lung linear scarring and/or atelectasis. No pleural effusion or pneumothorax. MEDIASTINUM: Lack of IV contrast is noted to limit evaluation for mediastinal and especially hilar ad enopathy. Post-CABG changes with mediastinal clips and sternal wires is present. Mild cardiomegaly. N o significant pericardial effusion. Multilead pacemaker/AICD. Enlarged pulmonary arteries consistent with underlying pulmonary hypertension. No definitive greater than 1 cm thoracic lymph nodes. OTHER: Cholecystectomy clips. Underlying scoliosis upper to midthoracic spine is present. Moderate mu ltilevel spurring and disc space narrowing in the thoracic spine. IMPRESSION: Moderate emphysematous change greatest in upper lungs. Mild cardiomegaly with evidence of underlying pulmonary hypertension. Post-CABG changes. Multifocal areas of acute infiltrate in the le ft lung involving upper and lower lobes with single subcentimeter cavitary lesion noted left lower lo be. Multifocal infectious process is suspected. Orally clinically.
[2019-05-31] MEDS ORDERED: WARFARIN 2.5 MG TAB PO ONE (18:00)
[2019-05-31] MEDS: ATORVASTATIN 20 MG TAB PO SCH (20:42)
[2019-05-31] MEDS: MELATONIN 3 MG TABLET PO SCH (20:43)
[2019-05-31 21:14] VITALS: RESP 20
--- NOTE | 2019-05-31 22:02 | P.PN ---
Progress Note - Text Progress Note Date: 05/31/19 Presenting complaint: Shortness of breath Interval history: This is a 68-year-old patient of Dr. Ervin adame. Patient was admitted in the end of April with acute COPD exacerbation and tracheobronchitis. Patient now presents for short of breath edema tired. Admitted with-COPD exacerbation, CHF exacerbation Today-continues to be to be short of breath and wheezing. Oral intake improving. Slight cough. Review of systems: Was done for constitutional, cardiovascular, GI, pulmonary. relevant finding as above Active Medications Albuterol/Ipratropium (Duoneb 0.5 Mg-3 Mg/3 Ml Soln) 3 ml INHALATION RT-Q2H PRN PRN Reason: Shortness Of Breath Or Wheezing Albuterol/Ipratropium (Duoneb 0.5 Mg-3 Mg/3 Ml Soln) 3 ml INHALATION RT-Q4H [facility] [place] Last Admin: 05/31/19 19:27 Dose: 3 ml Documented by: Aspirin (Aspirin) 81 mg PO DAILY [facility] [place] Last Admin: 05/31/19 08:01 Dose: 81 mg Documented by: Atorvastatin Calcium (Lipitor) 20 mg PO [facility] Last Admin: 05/31/19 20:42 Dose: 20 mg Documented by: Budesonide (Pulmicort) 1 mg INHALATION RT-BID [facility] [place] Last Admin: 05/31/19 19:27 Dose: 1 mg Documented by: Formoterol Fumarate (Perforomist) 20 mcg INHALATION RT-BID [facility] [place] Last Admin: 05/31/19 19:42 Dose: 20 mcg Documented by: Furosemide (Lasix) 40 mg IV Q12HR [facility] [place] Last Admin: 05/31/19 20:43 Dose: 40 mg Documented by: Guaifenesin (Mucinex) 1,200 mg PO Q12HR [facility] [place] Last Admin: 05/31/19 20:43 Dose: 1,200 mg Documented by: Loratadine (Claritin) 10 mg PO DAILY [facility] [place] Last Admin: 05/31/19 08:01 Dose: 10 mg Documented by: Melatonin (Melatonin) 3 mg PO [facility] Last Admin: 05/31/19 20:43 Dose: 3 mg Documented by: Metoprolol Tartrate (Lopressor) 50 mg PO BID [facility] [place] Last Admin: 05/31/19 20:43 Dose: 50 mg Documented by: Miscellaneous Information (Coumadin Per Pharmacy) 1 each MISCELLANE DIRECTED PRN; Protocol PRN Reason: Per Protocol Naloxone HCl (Narcan) 0.2 mg IV Q2M PRN PRN Reason: Opioid Reversal Oxycodone/Acetaminophen (Percocet 10-325) 1 each PO QID PRN PRN Reason: Pain Last Admin: 05/31/19 20:42 Dose: 1 each Documented by: Pantoprazole Sodium (Protonix) 40 mg PO AC-BID [facility] [place] Last Admin: 05/31/19 17:19 Dose: 40 mg Documented by: Paroxetine HCl (Paxil) 40 mg PO QAM [facility] [place] Last Admin: 05/31/19 08:02 Dose: 40 mg Documented by: Prednisone () 60 mg PO DAILY [facility] [place] Last Admin: 05/31/19 08:00 Dose: 60 mg Documented by: Sacubitril/Valsartan (Entresto 24 Mg-26 Mg Tablet) 1 each PO BID [facility] [place] Last Admin: 05/31/19 20:42 Dose: 1 each Documented by: Senna (Senokot) 17.2 mg PO BID PRN PRN Reason: Constipation Trimethoprim/Sulfamethoxazole (Bactrim Ds) 1 each PO BID [facility] [place] Last Admin: 05/31/19 20:42 Dose: 1 each Documented by: On examination: VITAL SIGNS: Reason 0.5, 72, 18, 11 2/68, 93% on 2 L GENERAL APPEARANCE: Sitting of the bed, appears a bit better. HEENT: Normal external appearance of nose and ear. Oral cavity normal EYES: Pupils equal. Conjunctiva normal. NECK: JVD not raised. Mass not palpable. RESPIRATORY: Respiratory effort increased,. Decreased air entry prolonged expiration and wheezing. CARDIOVASCULAR: First and second sounds normal. No edema. ABDOMEN: Soft. Liver and spleen not palpable. No tenderness. No mass palpable. PSYCHIATRY: Alert and oriented x3. Mood and affect but anxious. INVESTIGATIONS, reviewed in the clinical context: INR 2.4 potassium 3.8 bun 30 creatinine 1.09 Previous testing: Influenza type A and type B both negative Creatinine 0.84 patient EKG tracing personally reviewed by me-atrial paced 2-D echocardiogram-EF 30-35% receive a global hypokinesia, severe mitral annular calcification Chest x-ray film personally reviewed by me-pulmonary edema and possible infiltrate Assessment: -Acute on chronic congestive heart failure from systolic dysfunction EF 30-35% -Pneumonia suspect gram-negative organism, slow to respond -Persistent atrial fibrillation -Acute COPD exacerbation in a current smoker, slow to respond -Chronic nicotine dependence patient cigarette smoker -Coronary artery disease with prior history of stent -Primary osteoarthritis -Coumadin monitoring Plan: -Remains on nebulized steroids, nebulized broncho-titers every 4 hours., Mucinex thousand milligrams every 12. Steroids. started on Entresto by cardiology. on oral Lasix. Continue current treatment plan. Improving slowly.
[2019-06-01] MEDS: oxyCODONE-APAP 10-325MG 1 EACH TAB PO PRN (02:53)
[2019-06-01] MEDS: IPRATROPIUM-ALBUTEROL 3 ML NEB INHALATION SCH ×3 (03:53→11:19)
[2019-06-01 05:34] VITALS: BP 105/56; TEMP 97.9
[2019-06-01] MEDS: FUROSEMIDE 10 MG/ML 4 ML VIAL IV SCH (07:50)
[2019-06-01] MEDS: PARoxetine 20 MG TAB PO SCH (07:50)
[2019-06-01] MEDS: SULFAMETHOX-TMP 800-160MG 1 EACH TAB PO SCH (07:51)
[2019-06-01] MEDS: predniSONE 20 MG TAB PO SCH (07:51)
[2019-06-01] MEDS: PANTOPRAZOLE 40 MG TABLET PO SCH (07:51)
[2019-06-01] MEDS: guaiFENesin 600 MG TABLET.ER PO SCH (07:51)
[2019-06-01] MEDS: ASPIRIN 81 MG PO SCH (07:51)
[2019-06-01] MEDS: METOPROLOL TARTRATE 50 MG TAB PO SCH (07:51)
[2019-06-01] MEDS: LORATADINE 10 MG TAB PO SCH (07:51)
[2019-06-01 07:54] LABS: INR 2.8 (<1.2); Prothrombin Time 27.2 sec (9.0-12.0)
[2019-06-01] MEDS: SACUBITRIL/VALSARTAN 24 MG-26 MG TABLET PO SCH (07:59)
[2019-06-01] MEDS: FORMOTEROL FUMARATE 20 MCG/2 ML NEBU INHALATION SCH (08:13)
[2019-06-01] MEDS: BUDESONIDE 1 MG/2 ML NEBU INHALATION SCH (08:13)
[2019-06-01 08:33] VITALS: PULSE 67
--- NOTE | 2019-06-01 10:49 | P.PN ---
Subjective Progress Note Date: 06/01/19 Principal diagnosis: Acute COPD exacerbation Acute exacerbation of congestive heart failure acute on chronic systolic heart failure Mitral valve disease status post mitral valve replacement Long-term anticoagulation Peptic ulcer disease End-stage COPD 06/01/2019, patient seen and evaluated examined now labs reviewed medications reviewed occasional streaks of blood has been noted, sputum has been frothy and clear, patient wishes to go home discussed with the primary service primary service also like to discharge home, computed tomography scan has been reviewed patchy left-sided infiltrate noted, patient had his been instructed to follow-up as outpatient to monitor closely hemoptysis and pneumonia as well as left-sided very small cavitary lesion which is likely boluses. Surrounded by inflammation patient has been given 14 day course of antibiotics along with by mouth prednisone 05/31/2019, patient is having some productive sputum now, yellowish in color with streaks of blood is there, patient is on Coumadin as well, we'll check sputum for Gram stain and culture also obtain a computed tomography scan of the chest for hemoptysis, chest x-ray this morning essentially stable no evidence of pneumonia has been seen 05/30/2019, patient has been still having shortness of breath with cough congestion yesterday chest x-ray reviewed overall stable, patient remains on oral steroids and breathing treatment, along with anticoagulation 05/29/2019, patient seen eval examined during the rounds labs reviewed medications reviewed care plan discussed with the patient still have cough congestion shortness of breath remains on IV steroids breathing treatments she is anticoagulated PT/INR is well therapeutic range, patient remains on Lasix by mouth, still short of breath, last chest x-ray earlier this morning interstitial edema and pulmonary venous hypertension was noted This patient is well-known to me for past medical history of severe COPD emphysema, she has a significant cardiovascular history is baseline ejection fraction of 20% only, she has been having progressive increased shortness of breath with cough congestion without any relief of symptoms started about a month ago, patient was seen in the remote past last time at that time she was undergoing a trial of the Xolair she took it for about 8 months and then just stopped spontaneously, she has been on Coumadin for a higher and mitral valve replacement, her chest x-ray was significant for prominent interstitium, patient did receive some Lasix in the ER with significant relief, she denies any hemoptysis but has clear audible wheezing patient did receive a course of steroids from PMD stop about 10 days ago without any significant relief, she does have symptoms of ongoing snoring intermittent apnea and poor quality of sleep Objective - Vital Signs Vital signs: Vital Signs Temp 97.9 F 06/01/19 05:33 Pulse 67 06/01/19 08:33 Resp 20 06/01/19 08:00 BP 105/56 06/01/19 05:33 Pulse Ox 91 L 06/01/19 10:27 Intake & Output 05/31/19 06/01/19 06/01/19 18:59 06:59 18:59 Intake Total 1999 Balance 1999 Weight 89 kg Intake: Oral 1999 Other: Voiding Method Bedside Commode Bedside Commode Toilet # Voids 3 2 - Exam - Constitutional General appearance: average body habitus, cooperative, disheveled, mild distress - EENT Eyes: EOMI, PERRLA, poor dentition ENT: normal oropharynx Ears: bilateral: normal - Neck Neck: normal ROM Carotids: bilateral: upstroke normal - Respiratory Respiratory: bilateral: wheezing, prolonged expiration, negative: CTA, diminished, dullness, rales, rhonchi - Cardiovascular Rhythm: regular Heart sounds: normal: S1, S2 - Gastrointestinal General gastrointestinal: decreased bowel sounds, soft - Neurologic Neurologic: CNII-XII intact - Musculoskeletal Musculoskeletal: gait normal, generalized weakness, strength equal bilaterally - Psychiatric Psychiatric: A&O x's 3, appropriate affect, intact judgment & insight - Labs CBC & Chem 7: 05/29/19 08:18 06/01/19 07:11 Labs: Abnormal Lab Results - Last 24 Hours (Table) 06/01/19 06/01/19 Range/Units 07:11 07:11 PT 27.2 H (9.0-12.0) sec INR 2.8 H (<1.2) Chloride 96 L (98-107) mmol/L Carbon Dioxide 33 H (22-30) mmol/L BUN 34 H (7-17) mg/dL Creatinine 1.21 H (0.52-1.04) mg/dL Microbiology - Last 24 Hours (Table) 05/27/19 14:08 Blood Culture - Preliminary Blood No Growth after 96 hours Assessment and Plan Assessment: Hemoptysis likely related to inflammation of the lung but however pneumonia or other abnormality cannot be excluded planned to get a computed tomography scan of the chest Left-sided patchy pneumonia involving left lower lobe Left-sided small cavitary infiltrate likely infection around boluses per is Acute COPD exacerbation Acute exacerbation of congestive heart failure acute on chronic systolic heart failure Mitral valve disease status post mitral valve replacement Long-term anticoagulation Peptic ulcer disease End-stage COPD Plan: Computed tomography scan of the chest reviewed Continue prednisone Prescription of antibiotics and prednisone provided Patient insisted on going home agree with discharge planning follow-up early next week Breathing treatment Observe off of antibiotics Reviewed follow-up chest x-ray yesterday Increase activity as tolerated Would recommend a follow-up in outpatient setting need a PFT and further outpatient evaluation Patient needs to be evaluated for sleep disorder breathing and sleep apnea Time with Patient: Greater than 30
--- NOTE | 2019-06-01 12:16 | P.PN ---
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 She is seen and examined sitting up in bed in no acute distress. She underwent a non-contrast CT of her chest yesterday revealing moderate emphysematic changes in the upper lungs, mild cardiomegaly with underlying pulmonary hypertension, multi-focal areas of acute infiltrate in the left lung bother upper and lower with single subcentimeter cavitary lesion in the left upper lobe. Suspect multi-focal infectious process. Pulmonary team has evaluated these findings and think likely boluses surrounded by inflammation. Laboratory data reviewed, INR 2.8, sodium 138, potassium 4.0, creatinine 1.21. Blood pressure 105/56 heart rate 66 afebrile and maintaining oxygen saturation on nasal cannula. She continues to cough and is bringing up clear sputum. No chest pain, dizziness or palpitations noted. Telemetry tracings reviewed, continues to maintain sinus mechanism with frequent PVC's. GENERAL: Well-appearing, well-nourished and in no acute distress. NECK: Supple without JVD or thyromegaly. LUNGS: Course scattered rhonchi worse on the left with expiratory wheezes, no rales. Respiration equal and unlabored. Persistent cough. HEART: Regular rate and rhythm with systolic ejection murmur at the left sternal border, no rubs or gallops. S1 and S2 heard. EXTREMITIES: Normal range of motion, no lower extremity pitting edema. No clubbing or cyanosis. Peripheral pulses intact. ASSESSMENT Acute on chronic diastolic and systolic heart failure Valvular heart disease status post mitral valve replacement Ischemic cardiomyopathy status post AICD placement Acute exacerbation of COPD, maintained on updrafts, antibiotics and steroids Paroxysmal atrial fibrillation status post ablation, maintaining sinus mechanism. On long-term anticoagulation with Coumadin Hypertension Dyslipidemia Chronic nicotine dependence PLAN Tolerating entresto at current dose. Transition to oral diuretics. Ongoing evaluation and treatment per pulmonary care team. Stable from a cardiac perspective. Nurse Practitioner note has been reviewed, I agree with a documented findings and plan of care. Patient was seen and examined. Objective - Vital Signs Vital signs: Vital Signs Temp 97.9 F 06/01/19 05:33 Pulse 67 06/01/19 08:33 Resp 20 06/01/19 08:00 BP 105/56 06/01/19 05:33 Pulse Ox 91 L 06/01/19 10:27 Intake & Output 05/31/19 06/01/19 06/01/19 18:59 06:59 18:59 Intake Total 1999 Balance 1999 Weight 89 kg Intake: Oral 1999 Other: Voiding Method Bedside Commode Bedside Commode Toilet # Voids 3 2 - Labs CBC & Chem 7: 05/29/19 08:18 06/01/19 07:11 Labs: Abnormal Lab Results - Last 24 Hours (Table) 06/01/19 06/01/19 Range/Units 07:11 07:11 PT 27.2 H (9.0-12.0) sec INR 2.8 H (<1.2) Chloride 96 L (98-107) mmol/L Carbon Dioxide 33 H (22-30) mmol/L BUN 34 H (7-17) mg/dL Creatinine 1.21 H (0.52-1.04) mg/dL Microbiology - Last 24 Hours (Table) 05/27/19 14:08 Blood Culture - Preliminary Blood No Growth after 96 hours
[2019-06-01] MEDS ORDERED: FUROSEMIDE 40 MG TAB PO SCH (16:00)
[2019-06-01] MEDS ORDERED: WARFARIN 2.5 MG TAB PO ONE (18:00)
--- NOTE | 2019-06-03 23:50 | P.DS ---
Providers Date of admission: 05/29/19 08:59 Expected date of discharge: 06/01/19 Attending physician: Eric Argueta Consults: 05/27/19 17:00 Consult Physician Urgent Consulting Provider: Israel Mobley Consult Reason/Comments: acute resp failure Do you want consulting provider notified?: Yes 05/28/19 07:56 Consult Physician Routine Consulting Provider: Go Burgos Consult Reason/Comments: CHF, non compliant with lasix Do you want consulting provider notified?: Yes Primary care physician: Priyank Perez [facility] Course: Presenting complaint: Shortness of breath Interval history: This is a 68-year-old patient of Dr. Ervin perez. Patient was admitted in the end of April with acute COPD exacerbation and tracheobronchitis. Patient now presents for short of breath edema tired. Admitted with-COPD exacerbation, CHF exacerbation,pneumonia Treated with bronchodilators, steroids, IV Lasix. Today-doing better. Did tolerate some diet. has been out of bed..discussed with patient. Discussion and discharge planning more than 35 minutes consultations: Dr. Reinaldo Mobley from [facility] On examination: VITAL SIGNS: 97.9-60-20-105/56-95% on 2 L GENERAL APPEARANCE: Sitting of the bed, breathing better. HEENT: Normal external appearance of nose and ear. Oral cavity normal EYES: Pupils equal. Conjunctiva normal. NECK: JVD not raised. Mass not palpable. RESPIRATORY: Respiratory effort increased,. Decreased air entry prolonged expiration and wheezing. CARDIOVASCULAR: First and second sounds normal. No edema. ABDOMEN: Soft. Liver and spleen not palpable. No tenderness. No mass palpable. PSYCHIATRY: Alert and oriented x3. Mood and affect but anxious. INVESTIGATIONS, reviewed in the clinical context: -INR 2.8 potassium 4 bun 34 creatinine 1.21 Previous testing: Influenza type A and type B both negative Creatinine 0.84 patient EKG tracing personally reviewed by me-atrial paced 2-D echocardiogram-EF 30-35% receive a global hypokinesia, severe mitral annular calcification Chest x-ray film personally reviewed by me-pulmonary edema and possible infiltrate CT chest-showing infiltrates and emphysema Assessment: -Acute on chronic congestive heart failure from systolic dysfunction EF 30-35%, POA -Cchronic kidney disease stage III likely nephrosclerosis -Pneumonia suspect gram-negative organism, , POA -Persistent atrial fibrillation -Acute COPD exacerbation in a current smoker, slow to respond -Chronic nicotine dependence patient cigarette smoker -Coronary artery disease with prior history of stent -Primary osteoarthritis -Coumadin monitoring disposition: Home Plan - Discharge Summary Discharge Rx Participant: No New Discharge Prescriptions: New Sacubitril/Valsartan [Entresto 24 mg-26 mg Tablet] 1 each PO BID #60 tablet Aspirin 81 mg PO DAILY #30 chew Melatonin 3 mg PO HS tablet guaiFENesin [Mucinex] 1,200 mg PO BID #30 tbmp.12hr Famotidine [Pepcid] 20 mg PO BID #60 tablet predniSONE 10 mg PO DAILY #30 tab Continue Furosemide [Lasix] 40 mg PO BID Warfarin [Coumadin] 5 mg PO SUTUWEFRSA Simvastatin [Zocor] 40 mg PO HS Potassium Chloride 16 meq PO BID Metoprolol Tartrate [Lopressor] 50 mg PO BID Loratadine 10 mg PO DAILY Albuterol Inhaler [Ventolin Hfa Inhaler] 2 puff INHALATION RT-Q4H PRN PRN Reason: Shortness Of Breath PARoxetine HCL [Paxil] 40 mg PO QAM oxyCODONE-APAP 10-325MG [Percocet 10-325 mg] 1 tab PO QID Warfarin [Coumadin] 2.5 mg PO MOTH Ipratropium-Albuterol Nebulize [Duoneb 0.5 mg-3 mg/3 ml Soln] 3 ml INHALATION RT-Q6H #120 ampul.neb Sennosides [Senokot] 17.2 mg PO BID PRN #20 tab PRN Reason: Constipation Budesonide-Formot 160-4.5 Mcg [Symbicort 160-4.5 Mcg Inhaler] 2 puff INHALATION RT-BID #1 puff Discontinued Aspirin EC [Ecotrin] 325 mg PO DAILY Ranitidine HCl [Zantac] 300 mg PO DAILY Enalapril [Vasotec] 2.5 mg PO DAILY Discharge Medication List Furosemide [Lasix] 40 mg PO BID 02/19/16 [History] Potassium Chloride 16 meq PO BID 02/19/16 [History] Simvastatin [Zocor] 40 mg PO HS 02/19/16 [History] Warfarin [Coumadin] 5 mg PO SUTUWEFRSA 02/19/16 [History] Loratadine 10 mg PO DAILY 05/25/17 [History] Metoprolol Tartrate [Lopressor] 50 mg PO BID 05/25/17 [History] Albuterol Inhaler [Ventolin Hfa Inhaler] 2 puff INHALATION RT-Q4H PRN 05/31/17 [History] PARoxetine HCL [Paxil] 40 mg PO QAM 11/21/17 [History] oxyCODONE-APAP 10-325MG [Percocet 10-325 mg] 1 tab PO QID 11/21/17 [History] Warfarin [Coumadin] 2.5 mg PO MOTH 04/26/19 [History] Budesonide-Formot 160-4.5 Mcg [Symbicort 160-4.5 Mcg Inhaler] 2 puff INHALATION RT-BID #1 puff 04/29/19 [Rx] Ipratropium-Albuterol Nebulize [Duoneb 0.5 mg-3 mg/3 ml Soln] 3 ml INHALATION RT-Q6H #120 ampul.neb 04/29/19 [Rx] Sennosides [Senokot] 17.2 mg PO BID PRN #20 tab 04/29/19 [Rx] Sacubitril/Valsartan [Entresto 24 mg-26 mg Tablet] 1 each PO BID #60 tablet 05/29/19 [Rx] Aspirin 81 mg PO DAILY #30 chew 06/01/19 [Rx] Famotidine [Pepcid] 20 mg PO BID #60 tablet 06/01/19 [Rx] Melatonin 3 mg PO HS tablet 06/01/19 [Rx] guaiFENesin [Mucinex] 1,200 mg PO BID #30 tbmp.12hr 06/01/19 [Rx] predniSONE 10 mg PO DAILY #30 tab 06/01/19 [Rx] Follow up Appointment(s)/Referral(s): Priyank Perez MD [Primary Care Provider] - 1-2 days (Pt prefers to schedule ) Israel Mobley MD [STAFF PHYSICIAN] - 06/14/19 11:45 am Kiesha Frances MD [STAFF PHYSICIAN] - 2 Weeks Patient Instructions/Handouts: Heart Failure (DC) Activity/Diet/Wound Care/Special Instructions: Cardiac diet Limited activity until follow up with primary care. Daily weights and record, take to drs appointment. bmp - 5 days Discharge Disposition: HOME SELF-CARE
--- NOTE | 2019-06-06 13:54 | CDI ---
Documentation Clarification Form Date: 06/06/19 From: Ramila Malone Phone: If you have a question about this query, please contact Judith Alcala, [facility] Nurse at [phone] between 8am and 5pm. Admit Date: 05/29/19 Discharge Date: 06/01/19 Patient Name: Nunu Wong Visit Number: [id number] ATTENTION: The Clinical Documentation Specialists (CDI) and [facility] Coding Staff appreciate your assistance in clarifying documentation. Please respond to the clarification below the line at the bottom and electronically sign. The CDI & [facility] Coding staff will review the response and follow-up if needed. Please note: Queries are made part of the Legal Health Record. If you have any questions, please contact the author of this message via ITS. Dear Dr. Eric Argueta, Acute exacerbation of COPD with asthma is documented in the Dr Frances consult. History/risk factors: COPD/emphysema Clinical Indicators: Bilateral wheezing, prolonged expiration, diminished, dullness, rales, rhonchi Radiology: Interstitial infiltrates in the lower lung bryson increased compared to last exam. 05/27 Vital Signs: R-24, SOB, accessory muscle use, pursed lip, cough Other Clinical Indicators: Treatment: Nebulizer, IV Lasix, Symbicort, In your professional opinion, can you please further specify asthma? With Acute Exacerbation Status asthmaticus Other, please specify ___ Unable to determine Severity Mild intermittent Mild persistent Moderate persistent Severe persistent Other, please specify ____ Unable to determine No asthma MTDD
--- NOTE | 2019-06-06 14:02 | CDI ---
Documentation Clarification Form Date: 06/06/19 From: Ramila Malone Phone: If you have a question about this query, please contact Judith Alcala, Meatman at [phone] between 8am and 5pm. Admit Date: 05/29/19 Discharge Date: 06/01/19 Patient Name: Nunu Wong Visit Number: [id number] ATTENTION: The Clinical Documentation Specialists (CDI) and [facility] Coding Staff appreciate your assistance in clarifying documentation. Please respond to the clarification below the line at the bottom and electronically sign. The CDI & [facility] Coding staff will review the response and follow-up if needed. Please note: Queries are made part of the Legal Health Record. If you have any questions, please contact the author of this message via ITS. Dear Dr. Israel Mobley, The patient presented with the following respiratory symptoms: Bilateral wheezing, prolonged expiration, diminished, dullness, rales, rhonchi. History/Risk Factors: COPD/emphysema, CHF w HTN Tobacco use: cigarettes with tobacco abuse counseling Home oxygen: no 05/27-Vital signs: R-24, SOB, accessory muscle use, pursed lip, cough Pulse oximetry range: 92-94 ABG: none Treatment: R-24, SOB, accessory muscle use, pursed lip, cough O2 In your professional opinion, can you please clarify if these findings signify one of the following conditions? Acute Respiratory Failure MTDD
== END 2019-06-01 14:33 | disposition home or self-care (01) | DRG 291 ==
LOC: EC 13:01 → 6NMEDSUR 16:59 → OBSVTOIN 05-29 08:59
PROVIDERS: ADMIT Hospitalist; ATTEND Hospitalist
DX: I13.0 Hypertensive heart and chronic kidney disease with heart failure and stage 1 through stage 4 chronic kidney disease, or unspecified chronic kidney disease (principal); J15.6 Pneumonia due to other Gram-negative bacteria; I50.43 Acute on chronic combined systolic (congestive) and diastolic (congestive) heart failure; J96.00 Acute respiratory failure, unspecified whether with hypoxia or hypercapnia; T82.857A Stenosis of other cardiac prosthetic devices, implants and grafts, initial encounter; I48.19 Other persistent atrial fibrillation; R04.2 Hemoptysis; N39.0 Urinary tract infection, site not specified; I27.20 Pulmonary hypertension, unspecified; N18.3 Chronic kidney disease, stage 3 (moderate); I08.3 Combined rheumatic disorders of mitral, aortic and tricuspid valves; I25.5 Ischemic cardiomyopathy; J43.9 Emphysema, unspecified; T50.1X6A Underdosing of loop [high-ceiling] diuretics, initial encounter; R79.1 Abnormal coagulation profile; T45.515A Adverse effect of anticoagulants, initial encounter; I49.3 Ventricular premature depolarization; I25.10 Atherosclerotic heart disease of native coronary artery without angina pectoris; E78.5 Hyperlipidemia, unspecified; K27.9 Peptic ulcer, site unspecified, unspecified as acute or chronic, without hemorrhage or perforation; F32.9 Major depressive disorder, single episode, unspecified; G89.29 Other chronic pain; M54.5 Low back pain; M19.91 Primary osteoarthritis, unspecified site; Z91.128 Patient's intentional underdosing of medication regimen for other reason; I25.2 Old myocardial infarction; F17.210 Nicotine dependence, cigarettes, uncomplicated; Z71.6 Tobacco abuse counseling; Z79.82 Long term (current) use of aspirin; Z79.51 Long term (current) use of inhaled steroids; Z79.01 Long term (current) use of anticoagulants; Z79.891 Long term (current) use of opiate analgesic; Z79.899 Other long term (current) drug therapy; Z95.2 Presence of prosthetic heart valve; Z87.01 Personal history of pneumonia (recurrent); Z95.810 Presence of automatic (implantable) cardiac defibrillator; Z95.5 Presence of coronary angioplasty implant and graft; Z87.440 Personal history of urinary (tract) infections; Z87.19 Personal history of other diseases of the digestive system; Z98.51 Tubal ligation status; Y63.6 Underdosing and nonadministration of necessary drug, medicament or biological substance; Y83.1 Surgical operation with implant of artificial internal device as the cause of abnormal reaction of the patient, or of later complication, without mention of misadventure at the time of the procedure; Z88.1 Allergy status to other antibiotic agents; Z88.5 Allergy status to narcotic agent; Z88.0 Allergy status to penicillin; Z82.49 Family history of ischemic heart disease and other diseases of the circulatory system
CPT/HCPCS: 36415; 71045; 71046; 71250; 80048; 80053; 81001; 83605; 83880; 84484; 85025; 85379; 85610; 85730; 87040; 87086; 87502; 93005; 93306; 94640; 94667; 94668; 94760; 96365; 96375; 99285

== ENCOUNTER 2020-03-03 10:55 | Inpatient (IN) | payer MEDICARE, OTHER ==
[2020-03-03] MEDS ORDERED: ONDANSETRON 4 MG/2 ML VIAL IVP STA (11:05)
[2020-03-03] MEDS ORDERED: SODIUM CHLORIDE 0.9% 1,000 ML IV STA (11:11)
[2020-03-03] MEDS ORDERED: SODIUM CHLORIDE 0.9% 1,000 ML IV ONE ×2 (11:13→12:16)
[2020-03-03] MEDS ORDERED: SODIUM CHLORIDE 0.9% 500 ML 500 ML IV ONE (11:13)
--- NOTE | 2020-03-03 11:13 | ED ---
General Adult HPI - General Stated complaint: STEMI Time Seen by Provider: 03/03/20 11:00 Source: patient, RN notes reviewed, old records reviewed - History of Present Illness Initial comments: This is a 69-year-old female who presents emergency department stating that she's had 2 days of abdominal pain. Patient states is diffuse across her abdomen. Patient states the pain is gotten considerably worse and this morning it was at its worse. Patient states she's very nauseated and has been vomiting. Patient denies chest pain or difficulty breathing. Patient has a very poor historian at this time because of her distress she does not answer all questions. Patient denies any back pain. Patient denies any recent fever ch ills or cough. She does state that she is extremely nauseated and having pain for days. - Related Data Home Medications Medication Instructions Recorded Confirmed Furosemide [Lasix] 40 mg PO BID 02/19/16 03/03/20 Potassium Chloride 16 meq PO BID 02/19/16 03/03/20 Simvastatin [Zocor] 40 mg PO HS 02/19/16 03/03/20 Loratadine 10 mg PO DAILY 05/25/17 03/03/20 PARoxetine HCL [Paxil] 40 mg PO DAILY 11/21/17 03/03/20 oxyCODONE-APAP 10-325MG [Percocet 1 tab PO Q6H 11/21/17 03/03/20 10-325 mg] ALPRAZolam [Xanax] 1 mg PO BID 03/03/20 03/03/20 Albuterol Nebulized [Ventolin 2.5 mg INHALATION RT-TID 03/03/20 03/03/20 Nebulized] Folic Acid 1 mg PO DAILY 03/03/20 03/03/20 Metoprolol Tartrate [Lopressor] 12.5 mg PO BID 03/03/20 03/03/20 Nicotine 14Mg/24Hr Patch [Habitrol 1 patch TRANSDERM DAILY 03/03/20 03/03/20 14Mg/24Hr Patch] Sennosides/Docusate Sodium [Senna 2 tab PO DAILY 03/03/20 03/03/20 Plus 8.6-50 mg Tablet] Warfarin [Coumadin] 3 mg PO DAILY 03/03/20 03/03/20 Zolpidem Tartrate [Ambien] 5 mg PO HS 03/03/20 03/03/20 Previous Rx's Medication Instructions Recorded Aspirin 81 mg PO DAILY #30 chew 06/01/19 Allergies Allergy/AdvReac Type Severity Reaction Status Date / Time hydromorphone [From Dilaudid] Allergy Unknown Verified 03/03/20 11:56 levofloxacin [From Levaquin] Allergy Anaphylaxis Verified 03/03/20 11:56 (went into a coma) Penicillins Allergy Rash/Hives Verified 03/03/20 11:56 codeine AdvReac Nausea & Verified 03/03/20 11:56 Vomiting Review of Systems ROS Statement: Those systems with pertinent positive or pertinent negative responses have been documented in the HPI. ROS Other: All systems not noted in ROS Statement are negative. Past Medical History Past Medical History: Atrial Fibrillation, Asthma, Heart Failure, COPD, GI Bleed, Myocardial Infarction ([place]), Osteoarthritis (OA), Pneumonia Additional Past Medical History / Comment(s): N,V,hypotensive, chronic back pain Last Myocardial Infarction Date:: unk History of Any Multi-Drug Resistant Organisms: None Reported Past Surgical History: AICD, Section, Heart Catheterization With Stent, Pacemaker, Tubal Ligation Additional Past Surgical History / Comment(s): mitral valve replacement, tubal ligation, Past Anesthesia/Blood Transfusion Reactions: No Reported Reaction Date of Last Stent Placement:: unk Type of Cardiac Device: Permanent Pacemaker, AICD Device Placement Date:: 2014 Past Psychological History: Depression Past Alcohol Use History: None Reported Past Drug Use History: None Reported - Past Family History Mother Additional Family Medical History / Comment(s): MOM IN MVA ACCIDENT Father Family Medical History: Coronary Artery Disease (CAD) Additional Family Medical History / Comment(s): CARDIAC DISEASE General Exam - General Exam Comments Initial Comments: GENERAL: Patient is well-developed and well-nourished. Patient is nontoxic and well- hydrated and is in moderate distress. ENT: Neck is soft and supple. No significant lymphadenopathy is noted. Oropharynx is clear. Moist mucous membranes. Neck has full range of motion without eliciting any pain. EYES: The sclera were anicteric and conjunctiva were pink and moist. Extraocular movements were intact and pupils were equal round and reactive to light. Eye lids were unremarkable. PULMONARY: Unlabored respirations. Good breath sounds bilaterally. No audible rales rhonchi or wheezing was noted. CARDIOVASCULAR: Patient is tachycardic at about 120 beats per minute ABDOMEN: Mild abdominal tenderness diffusely. No point tenderness noted SKIN: Skin is clear with no lesions or rashes and otherwise unremarkable. NEUROLOGIC: Patient is alert and oriented x3. Cranial nerves II through XII are grossly intact. Motor and sensory are also intact. Normal speech, volume and content. Symmetrical smile. MUSCULOSKELETAL: Normal extremities with adequate strength and full range of motion. LYMPHATICS: No significant lymphadenopathy is noted PSYCHIATRIC: Normal psychiatric evaluation. Course Vital Signs 03/03/20 03/03/20 03/03/20 10:59 11:31 12:44 Temperature 97.7 F Pulse Rate 130 H 98 88 Respiratory 18 20 16 Rate Blood Pressure 123/93 109/78 113/77 O2 Sat by Pulse 93 L 97 95 Oximetry 03/03/20 14:05 Temperature Pulse Rate 92 Respiratory 12 Rate Blood Pressure 95/62 O2 Sat by Pulse 96 Oximetry Procedures - Sepsis Sepsis Focused Exam #1 Time Sepsis Criteria Met: 13:55 Sepsis Focused Exam Date: 03/03/20 Sepsis Focused Exam Time: 13:59 Sepsis Focused Exam Complete: Yes Vital Signs & RN Notes Reviewed: Yes Capillary Refill: < 2 Seconds: Fingers Peripheral Pulses: Normal: Radial (R) Skin Color: Normal for Patient Respiratory Exam: normal lung sounds Cardiovascular Exam: normal rhythm Medical Decision Making - Medical Decision Making EKG shows sinus tachycardia at a rate of 132 bpm RI interval is 94 QRS is 160 QT interval 348 QTC is 5:15. Patient's EKG shows right bundle branch block however there is no ST segment elevation or depression. Patient's ideal body weight is 54 kg. Patient received 2-1/2 L of fluid in the emergency department. Chest x-ray shows pulmonary edema. Patient was given Lasix. I gave the patient antibiotics as well because of the possibility of that being atypical pneumonia though the patient is not complaining of any cough or fever. I spoke with Dr. Argueta he agreed to admit the patient admitted the patient wrote admitting orders. - Lab Data Result diagrams: 03/03/20 11:12 03/03/20 11:12 Lab Results 03/03/20 03/03/20 03/03/20 Range/Units 11:12 11:12 11:12 WBC 19.2 H (3.8-10.6) k/uL RBC 4.74 (3.80-5.40) m/uL Hgb 14.4 (11.4-16.0) gm/dL Hct 47.2 H (34.0-46.0) % MCV 99.5 (80.0-100.0) fL MCH 30.5 (25.0-35.0) pg MCHC 30.6 L (31.0-37.0) g/dL RDW 15.9 H (11.5-15.5) % Plt Count 336 (150-450) k/uL Neutrophils % 39 % Lymphocytes % 46 % Monocytes % 3 % Eosinophils % 8 % Basophils % 2 % Neutrophils # 7.4 (1.3-7.7) k/uL Lymphocytes # 8.9 H (1.0-4.8) k/uL Monocytes # 0.6 (0-1.0) k/uL Eosinophils # 1.6 H (0-0.7) k/uL Basophils # 0.3 H (0-0.2) k/uL Manual Slide Review Performed Hypochromasia Moderate Poikilocytosis (manual Present APTT (22.0-30.0) sec Sodium 142 (137-145) mmol/L Potassium 4.4 (3.5-5.1) mmol/L Chloride 104 (98-107) mmol/L Carbon Dioxide 26 (22-30) mmol/L Anion Gap 12 mmol/L BUN 9 (7-17) mg/dL Creatinine 1.11 H (0.52-1.04) mg/dL Est GFR (CKD-EPI)AfAm 58 (>60 ml/min/1.73 sqM) Est GFR (CKD-EPI)NonAf 50 (>60 ml/min/1.73 sqM) Glucose 274 H (74-99) mg/dL Lactic Ac Sepsis Rflx Plasma Lactic Acid [place] (0.7-2.0) mmol/L Calcium 9.0 (8.4-10.2) mg/dL Total Bilirubin 0.4 (0.2-1.3) mg/dL AST 33 (14-36) U/L ALT 14 (4-34) U/L Alkaline Phosphatase 112 (38-126) U/L Troponin I (0.000-0.034) ng/mL NT-Pro-B Natriuret Pep pg/mL Total Protein 6.7 (6.3-8.2) g/dL Albumin 3.8 (3.5-5.0) g/dL Amylase 71 (30-110) U/L Lipase 273 (23-300) U/L Urine Color Yellow Urine Appearance Clear (Clear) Urine pH 5.0 (5.0-8.0) Ur Specific [place] 1.015 (1.001-1.035) Urine Protein Negative (Negative) Urine Glucose (UA) Negative (Negative) Urine Ketones Negative (Negative) Urine Blood Large (Negative) Urine Nitrite Negative (Negative) Urine Bilirubin Negative (Negative) Urine Urobilinogen <2.0 (<2.0) mg/dL Ur Leukocyte Esterase Moderate (Negative) Urine RBC 1 (0-5) /hpf Urine WBC 5 (0-5) /hpf Ur Squamous Epith Cells 2 (0-4) /hpf Urine Bacteria Rare H (None) /hpf Hyaline Casts 7 H (0-2) /lpf Urine Mucus Rare H (None) /hpf 03/03/20 03/03/20 03/03/20 Range/Units 11:12 11:12 11:12 WBC (3.8-10.6) k/uL RBC (3.80-5.40) m/uL Hgb (11.4-16.0) gm/dL Hct (34.0-46.0) % MCV (80.0-100.0) fL MCH (25.0-35.0) pg MCHC (31.0-37.0) g/dL RDW (11.5-15.5) % Plt Count (150-450) k/uL Neutrophils % % Lymphocytes % % Monocytes % % Eosinophils % % Basophils % % Neutrophils # (1.3-7.7) k/uL Lymphocytes # (1.0-4.8) k/uL Monocytes # (0-1.0) k/uL Eosinophils # (0-0.7) k/uL Basophils # (0-0.2) k/uL Manual Slide Review Hypochromasia Poikilocytosis (manual APTT (22.0-30.0) sec Sodium (137-145) mmol/L Potassium (3.5-5.1) mmol/L Chloride (98-107) mmol/L Carbon Dioxide (22-30) mmol/L Anion Gap mmol/L BUN (7-17) mg/dL Creatinine (0.52-1.04) mg/dL Est GFR (CKD-EPI)AfAm (>60 ml/min/1.73 sqM) Est GFR (CKD-EPI)NonAf (>60 ml/min/1.73 sqM) Glucose (74-99) mg/dL Lactic Ac Sepsis Rflx Plasma Lactic Acid [place] 7.2 H* (0.7-2.0) mmol/L Calcium (8.4-10.2) mg/dL Total Bilirubin (0.2-1.3) mg/dL AST (14-36) U/L ALT (4-34) U/L Alkaline Phosphatase (38-126) U/L Troponin I <0.012 (0.000-0.034) ng/mL NT-Pro-B Natriuret Pep 429 pg/mL Total Protein (6.3-8.2) g/dL Albumin (3.5-5.0) g/dL Amylase (30-110) U/L Lipase (23-300) U/L Urine Color Urine Appearance (Clear) Urine pH (5.0-8.0) Ur Specific [place] (1.001-1.035) Urine Protein (Negative) Urine Glucose (UA) (Negative) Urine Ketones (Negative) Urine Blood (Negative) Urine Nitrite (Negative) Urine Bilirubin (Negative) Urine Urobilinogen (<2.0) mg/dL Ur Leukocyte Esterase (Negative) Urine RBC (0-5) /hpf Urine WBC (0-5) /hpf Ur Squamous Epith Cells (0-4) /hpf Urine Bacteria (None) /hpf Hyaline Casts (0-2) /lpf Urine Mucus (None) /hpf 03/03/20 03/03/20 03/03/20 Range/Units 11:39 12:51 14:07 WBC (3.8-10.6) k/uL RBC (3.80-5.40) m/uL Hgb (11.4-16.0) gm/dL Hct (34.0-46.0) % MCV (80.0-100.0) fL MCH (25.0-35.0) pg MCHC (31.0-37.0) g/dL RDW (11.5-15.5) % Plt Count (150-450) k/uL Neutrophils % % Lymphocytes % % Monocytes % % Eosinophils % % Basophils % % Neutrophils # (1.3-7.7) k/uL Lymphocytes # (1.0-4.8) k/uL Monocytes # (0-1.0) k/uL Eosinophils # (0-0.7) k/uL Basophils # (0-0.2) k/uL Manual Slide Review Hypochromasia Poikilocytosis (manual APTT 24.4 (22.0-30.0) sec Sodium (137-145) mmol/L Potassium (3.5-5.1) mmol/L Chloride (98-107) mmol/L Carbon Dioxide (22-30) mmol/L Anion Gap mmol/L BUN (7-17) mg/dL Creatinine (0.52-1.04) mg/dL Est GFR (CKD-EPI)AfAm (>60 ml/min/1.73 sqM) Est GFR (CKD-EPI)NonAf (>60 ml/min/1.73 sqM) Glucose (74-99) mg/dL Lactic Ac Sepsis Rflx Y Plasma Lactic Acid [place] 1.6 (0.7-2.0) mmol/L Calcium (8.4-10.2) mg/dL Total Bilirubin (0.2-1.3) mg/dL AST (14-36) U/L ALT (4-34) U/L Alkaline Phosphatase (38-126) U/L Troponin I (0.000-0.034) ng/mL NT-Pro-B Natriuret Pep pg/mL Total Protein (6.3-8.2) g/dL Albumin (3.5-5.0) g/dL Amylase (30-110) U/L Lipase (23-300) U/L Urine Color Urine Appearance (Clear) Urine pH (5.0-8.0) Ur Specific [place] (1.001-1.035) Urine Protein (Negative) Urine Glucose (UA) (Negative) Urine Ketones (Negative) Urine Blood (Negative) Urine Nitrite (Negative) Urine Bilirubin (Negative) Urine Urobilinogen (<2.0) mg/dL Ur Leukocyte Esterase (Negative) Urine RBC (0-5) /hpf Urine WBC (0-5) /hpf Ur Squamous Epith Cells (0-4) /hpf Urine Bacteria (None) /hpf Hyaline Casts (0-2) /lpf Urine Mucus (None) /hpf Disposition Clinical Impression: Acute pulmonary edema, Lactic acidosis, Leukocytosis, Atypical pneumonia, Acute vomiting Disposition: ADMITTED IP TO THIS HOSP Referrals: Priyank Perez MD [Primary Care Provider] - 1-2 days Time of Disposition: 14:56
[2020-03-03 11:23] LABS: Basophils # (A) 0.3 k/uL (0-0.2); Basophils % (A) 2 %; Eosinophils # (A) 1.6 k/uL (0-0.7); Eosinophils % (A) 8 %; HCT 47.2 % (34.0-46.0); HGB 14.4 gm/dL (11.4-16.0); Hypochromasia Moderate; Lymphocytes # (A) 8.9 k/uL (1.0-4.8); Lymphocytes % (A) 46 %; MCH 30.5 pg (25.0-35.0); MCHC 30.6 g/dL (31.0-37.0); MCV 99.5 fL (80.0-100.0); Mean Platelet Volume 8.1; Monocytes # (A) 0.6 k/uL (0-1.0); Monocytes % (A) 3 %; Neutrophils # (A) 7.4 k/uL (1.3-7.7); Neutrophils % (A) 39 %; Platelet Count 336 k/uL (150-450); RBC 4.74 m/uL (3.80-5.40); RDW 15.9 % (11.5-15.5); WBC 19.2 k/uL (3.8-10.6)
[2020-03-03 11:32] LABS: Albumin 3.8 g/dL (3.5-5.0); Potassium 4.4 mmol/L (3.5-5.1); Total Bilirubin 0.4 mg/dL (0.2-1.3); Total Protein 6.7 g/dL (6.3-8.2)
[2020-03-03 11:58] LABS: Poikilocytosis (M) Present
--- NOTE | 2020-03-03 12:13 | XR ---
EXAMINATION TYPE: XR chest 2V DATE OF EXAM: 03/03/2020 COMPARISON: Chest x-ray and CT chest May 31, 2019 HISTORY: Difficulty in breathing. TECHNIQUE: Frontal and lateral views of the chest are obtained. FINDINGS: The osseous structures remain demineralized. Overlying sternal wires and mediastinal clips along with mitral valve surgical changes redemonstrated. Persistent cardiomegaly with dual lead pace maker/defibrillator. Chronic parenchymal changes with new mild to moderate interstitial prominence an d worsening central vascular congestion along with right basilar opacity. Stable tiny right pleural e ffusion or pleural thickening with eventration right hemidiaphragm. IMPRESSION: Suspect CHF exacerbation as there is new moderate interstitial edema and central vascula r congestion on background cardiomegaly and chronic emphysematous change. Correlate clinically..
--- NOTE | 2020-03-03 12:25 | CT ---
EXAMINATION TYPE: CT abdomen pelvis w con DATE OF EXAM: 03/03/2020 COMPARISON: CT abdomen pelvis 02/22/2016 HISTORY: N/V today with weakness. CT DLP: 1499 mGycm Automated exposure control for dose reduction was used. TECHNIQUE: Helical acquisition of images was performed from the lung bases through the pelvis. CONTRAST: Performed without Oral Contrast and with IV Contrast, patient injected with 100 mL of Isovue 300. FINDINGS: LUNG BASES: Bibasilar atelectasis and interlobular septal thickening. No pericardial or pleural effus ion. LIVER: Normal. BILIARY SYSTEM: Redemonstrated dilatation of the common bile duct up to 15 mm status post cholecystec humberto, unchanged from 2016 CT comparison. Redemonstrated central intrahepatic biliary ductal dilatatio n. PANCREAS: Coarse calcifications. No main pancreatic ductal dilatation. No peripancreatic inflammation . SPLEEN: Normal. ADRENALS: Normal. KIDNEYS: No hydronephrosis. Too small to characterize hypodense lesions in the left. Vascular calcifi cations bilaterally. BOWEL: There is circumferential thickening of the visualized distal esophagus. No evidence of obstru ction. Colonic diverticulosis. No acute diverticulitis. PERITONEUM: No pneumoperitoneum. No free fluid. LYMPH NODES: No lymphadenopathy. PELVIS: Normal. VASCULATURE: No abdominal aortic aneurysm. There is a redemonstrated short segment chronic dissectio n (201:35) unchanged from 2016 comparison. There is infrarenal abdominal aortic ectasia measuring up to 2.3 cm, unchanged from 2016 comparison. MUSCULOSKELETAL: Degenerative changes of the spine. IMPRESSION: 1. Circumferentially thickened distal esophagus. Findings may represent inflammation such as esophagi tis, however neoplastic etiology included in differential. Recommend correlation with direct visualiz ation. 2. Additional chronic findings as above.
[2020-03-03] MEDS ORDERED: METOCLOPRAMIDE 5 MG/ML 2 ML VIAL IVP STA (12:30)
[2020-03-03] MEDS ORDERED: FUROSEMIDE 10 MG/ML 10 ML VIAL IV STA (13:04)
[2020-03-03 13:40] LABS: Bacteria,Urine Rare /hpf; Hyaline Casts,Urine 7 /lpf (0-2); Mucus,Urine Rare /hpf; RBC,Urine 1 /hpf (0-5); Squamous Epithelial Cell,Urine 2 /hpf (0-4); WBC,Urine 5 /hpf (0-5)
[2020-03-03 13:41] LABS: Bilirubin,Urine Negative (Negative); Glucose,Urine (UA) Negative (Negative); Ketones,Urine Negative (Negative); Protein,Urine Negative (Negative)
[2020-03-03 13:42] LABS: Blood,Urine Large (Negative); Leukocyte Esterase,Urine Moderate (Negative); Nitrite,Urine Negative (Negative); Urobilinogen,Urine <2.0 mg/dL (<2.0)
[2020-03-03 13:43] LABS: Appearance,Urine Clear (Clear); Color,Urine Yellow
[2020-03-03 13:44] LABS: Specific Gravity,Urine 1.015 (1.001-1.035)
[2020-03-03] MEDS ORDERED: AZITHROMYCIN 500 MG in SODIUM CHLORIDE 0.9% 250 ML IVPB STA (15:00)
[2020-03-03 15:47] LABS: INR 1.1 (<1.2); Prothrombin Time 11.3 sec (9.0-12.0)
[2020-03-03] MEDS ORDERED: SODIUM CHLORIDE 0.9% 500 ML 250 ML IV ONE (16:36)
--- NOTE | 2020-03-03 16:52 | P.CNPUL ---
History of Present Illness Consult date: 03/03/20 Reason for consult: dyspnea, cough, hypoxemia Chief complaint: Cough shortness of breath along with intermittent abdominal pain History of present illness: This is a 68-year-old female with long-standing history of COPD and stage hypoxic respiratory failure due to and his stay COPD oxygen dependent, patient has a recent hospitalization in another hospital several months ago with acute COPD exacerbation she has been gagging coughing bringing up mucoid to light brown sputum, along with that she is been complaining of abdominal pain, denies any chest pain, does have shortness of breath smoking is down significantly, her significant history is for significant valvular heart disease history of mitral valve replacement at [facility], she has been on anticoagulation with Coumadin, also has a chronic atrial fibrillation history of NC and pneumonia, she has chronic systolic heart failure status post AICD and pacemaker also has a history of coronary artery disease with multiple stent placement in the past, her admitted chest x-ray significant for CHF-like changes and interstitial edema, computed tomography scan of the abdominal and pelvis significant for a by basilar atelectasis and septal thickening in the bases of the lung, liver is normal, dilated duct in the biliary area has been noted, sign ificant finding of distal esophagus circumferential thickening is noted likely neoplastic changes Review of Systems All systems: negative Past Medical History Past Medical History: Atrial Fibrillation, Asthma, Heart Failure, COPD, GI Bleed, Myocardial Infarction ([place]), Osteoarthritis (OA), Pneumonia Additional Past Medical History / Comment(s): N,V,hypotensive, chronic back pain Last Myocardial Infarction Date:: unk History of Any Multi-Drug Resistant Organisms: None Reported Past Surgical History: AICD, Section, Heart Catheterization With Stent, Pacemaker, Tubal Ligation Additional Past Surgical History / Comment(s): mitral valve replacement, tubal ligation, Past Anesthesia/Blood Transfusion Reactions: No Reported Reaction Date of Last Stent Placement:: unk Type of Cardiac Device: Permanent Pacemaker, AICD Device Placement Date:: 2014 Past Psychological History: Depression Past Alcohol Use History: None Reported Past Drug Use History: None Reported - Past Family History Mother Additional Family Medical History / Comment(s): MOM IN MVA ACCIDENT Father Family Medical History: Coronary Artery Disease (CAD) Additional Family Medical History / Comment(s): CARDIAC DISEASE Medications and Allergies Home Medications Medication Instructions Recorded Confirmed Type Furosemide [Lasix] 40 mg PO BID 02/19/16 03/03/20 History Potassium Chloride 16 meq PO BID 02/19/16 03/03/20 History Simvastatin [Zocor] 40 mg PO HS 02/19/16 03/03/20 History Loratadine 10 mg PO DAILY 05/25/17 03/03/20 History PARoxetine HCL [Paxil] 40 mg PO DAILY 11/21/17 03/03/20 History oxyCODONE-APAP 10-325MG [Percocet 1 tab PO Q6H 11/21/17 03/03/20 History 10-325 mg] Aspirin 81 mg PO DAILY #30 chew 06/01/19 03/03/20 Rx ALPRAZolam [Xanax] 1 mg PO BID 03/03/20 03/03/20 History Albuterol Nebulized [Ventolin 2.5 mg INHALATION RT-TID 03/03/20 03/03/20 History Nebulized] Folic Acid 1 mg PO DAILY 03/03/20 03/03/20 History Metoprolol Tartrate [Lopressor] 12.5 mg PO BID 03/03/20 03/03/20 History Nicotine 14Mg/24Hr Patch [Habitrol 1 patch TRANSDERM DAILY 03/03/20 03/03/20 History 14Mg/24Hr Patch] Sennosides/Docusate Sodium [Senna 2 tab PO DAILY 03/03/20 03/03/20 History Plus 8.6-50 mg Tablet] Warfarin [Coumadin] 3 mg PO DAILY 03/03/20 03/03/20 History Zolpidem Tartrate [Ambien] 5 mg PO HS 03/03/20 03/03/20 History Allergies Allergy/AdvReac Type Severity Reaction Status Date / Time hydromorphone [From Dilaudid] Allergy Unknown Verified 03/03/20 11:56 levofloxacin [From Levaquin] Allergy Anaphylaxis Verified 03/03/20 11:56 (went into a coma) Penicillins Allergy Rash/Hives Verified 03/03/20 11:56 codeine AdvReac Nausea & Verified 03/03/20 11:56 Vomiting Physical Exam Vitals: Vital Signs Temp Pulse Resp BP Pulse Ox 03/03/20 15:36 91 16 105/74 95 03/03/20 14:05 92 12 95/62 96 03/03/20 12:44 88 16 113/77 95 03/03/20 11:31 98 20 109/78 97 03/03/20 10:59 97.7 F 130 H 18 123/93 93 L Intake and Output 03/03/20 03/03/20 03/03/20 06:59 14:59 22:59 Other: Weight 86.183 kg - Constitutional General appearance: average body habitus, cooperative, disheveled - EENT Eyes: PERRLA Ears: bilateral: normal - Neck Neck: normal ROM Carotids: bilateral: upstroke normal Thyroid: bilateral: normal size - Respiratory Respiratory: bilateral: diminished - Cardiovascular Rhythm: regular Heart sounds: normal: S1, S2 Results - Laboratory Findings CBC and BMP: 03/03/20 11:12 03/03/20 11:12 PT/INR, D-dimer PT 11.3 sec (9.0-12.0) 03/03/20 12:51 INR 1.1 (<1.2) 03/03/20 12:51 Abnormal lab findings: Abnormal Labs 03/03/20 03/03/20 03/03/20 11:12 11:12 11:12 WBC 19.2 H Hct 47.2 H MCHC 30.6 L RDW 15.9 H Lymphocytes # 8.9 H Eosinophils # 1.6 H Basophils # 0.3 H Creatinine 1.11 H Glucose 274 H Plasma Lactic Acid [place] Urine Bacteria Rare H Hyaline Casts 7 H Urine Mucus Rare H 03/03/20 11:12 WBC Hct MCHC RDW Lymphocytes # Eosinophils # Basophils # Creatinine Glucose Plasma Lactic Acid [place] 7.2 H* Urine Bacteria Hyaline Casts Urine Mucus - Diagnostic Findings Chest x-ray: report reviewed, image reviewed (Finding as noted above) Assessment and Plan Assessment: Acute COPD exacerbation Tracheobronchitis Bilateral pneumonia Distal esophageal thickening with symptoms of abdominal pain and intermittent in Mrs. Chronic atrial fibrillation Chronic systolic heart failure Coronary artery disease Extensive history of smoking and nicotine use Plan: Agree with antibiotics Supplemental oxygen Deep breathing exercises incentive spirometry Bronchodilators IV steroids PPI Recommend GI evaluation for endoscopy Further recommendations pending plan of care as per clinical response of the patient Time with Patient: Greater than 30
[2020-03-03] MEDS: PANTOPRAZOLE 40 MG/10 ML VIAL IVP SCH (18:51)
[2020-03-03] MEDS ORDERED: IPRATROPIUM-ALBUTEROL 3 ML NEB INHALATION SCH (20:00)
[2020-03-03 20:07] LABS: Glucose,Whole Blood 106 mg/dL (75-99)
[2020-03-03] MEDS: INSULIN ASPART (NovoLOG) 100 UNIT/ML VIAL SQ SCH (20:35)
[2020-03-03] MEDS: ALPRAZolam 1 MG TAB PO SCH (20:36)
[2020-03-03] MEDS: METOPROLOL TARTRATE 12.5 MG TAB PO SCH (20:40)
[2020-03-03] MEDS: POTASSIUM CHLORIDE ER 20 MEQ TAB.ER PO SCH (20:40)
[2020-03-03] MEDS: ATORVASTATIN 20 MG TAB PO SCH (20:40)
[2020-03-03] MEDS: FUROSEMIDE 40 MG TAB PO SCH (20:41)
[2020-03-03] MEDS: methylPREDNISolone SOD SUCCI 40 MG/ML 1 ML VIAL IV SCH (20:41)
[2020-03-03] MEDS ORDERED: oxyCODONE-APAP 10-325MG 1 EACH TAB PO SCH (21:00)
[2020-03-03] MEDS ORDERED: WARFARIN 2 MG TAB PO ONE (21:00)
[2020-03-03] MEDS: BUDESONIDE 0.5 MG/2 ML NEBU INHALATION SCH (21:38)
[2020-03-03] MEDS ORDERED: CALCIUM CARBONATE 500 MG CHEWABLE PO PRN (22:24)
[2020-03-03] MEDS ORDERED: LACTULOSE 20 GM/30 ML CUP PO PRN (22:24)
[2020-03-03] MEDS ORDERED: NALOXONE 0.4 MG/ML 1 ML VIAL IV PRN (22:24)
[2020-03-03] MEDS ORDERED: ACETAMINOPHEN TAB 325 MG TAB PO PRN (22:24)
[2020-03-03] MEDS ORDERED: MELATONIN 3 MG TABLET PO PRN (22:24)
--- NOTE | 2020-03-03 22:34 | P.HPIM ---
History of Present Illness H&P Date: 03/03/20 Chief Complaint: Short of breath cough History of presenting complaint This is a 69-year-old patient of Dr. Ervin adame. Chronic stable medical conditions include chronic kidney disease stage III, atrial fibrillation, coronary artery stent, primary osteoarthritis. Patient been having shortness of breath for some time now progressively getting worse. Very congested cough. Has been bringing up phlegm. Yellow. Appetite is okay. Had some low-grade fever. Some wheezing shortness of breath. Tired. Review of systems: GEN.: Tired EYES: None HEENT: None NECK: None RESPIRATORY: As above CARDIOVASCULAR: None GASTROINTESTINAL: None GENITOURINARY: None MUSCULOSKELETAL: Joint pains LYMPHATICS: None HEMATOLOGICAL: None PSYCHIATRY: None NEUROLOGICAL: None Past medical history to include: Atrial fibrillation, COPD, CHF, coronary artery disease, osteoarthritis, chronic low back pain, AICD, coronary artery disease with stent, mitral valve replacement, permanent pacemaker, depression Social history: Smokes less than a pack a day for close to 60's. No down to a few cigarettes a day for last couple of months. Lives with her and son. On examination: VITAL SIGNS: 97.7, 98, 20, 109/78, 97% on 5 L GENERAL APPEARANCE: BMI 32.7, sitting up, congested cough HEENT: Normal external appearance of nose and ear. Oral cavity normal EYES: Pupils equal. Conjunctiva normal. NECK: JVD not raised. Mass not palpable. RESPIRATORY: Respiratory effort increased,. Decreased air entry prolonged expiration and wheezing. CARDIOVASCULAR: First and second sounds normal. No edema. ABDOMEN: Soft. Liver and spleen not palpable. No tenderness. No mass palpable. PSYCHIATRY: Alert and oriented x3. Mood and affect-anxious. INVESTIGATIONS, reviewed in the clinical context: White count 19.2 hemoglobin 14.4 platelets 336 potassium 4.4 creatinine 1.11 lactic acid 7.2 troponin I less than 0.012 proBNP 429 EKG tracing personally reviewed by me-sinus rhythm, right bundle branch block, sinus tachycardia Computed tomography scan of the abdomen some thickening of the distal esophagus Chest x-ray film personally reviewed by me-diffuse infiltrates Assessment: -Multilobar Pneumonia suspect gram-negative organism, , POA -chronic congestive heart failure from systolic dysfunction EF 30-35%, POA -Persistent atrial fibrillation -Acute COPD exacerbation in a current smoker, slow to respond -Chronic nicotine dependence patient cigarette smoker -Coronary artery disease with prior history of stent -Primary osteoarthritis -Coumadin monitoring -chronic kidney disease stage III likely nephrosclerosis Plan: Patient started IV ceftriaxone. IV steroids, inhaled steroids. Mucinex. Home medications resumed. Pulmonary consulted. Pharmacy to dose Coumadin. Care was discussed with the patient question also. Past Medical History Past Medical History: Atrial Fibrillation, Asthma, Heart Failure, COPD, GI Bleed, Myocardial Infarction ([place]), Osteoarthritis (OA), Pneumonia Additional Past Medical History / Comment(s): N,V,hypotensive, chronic back pain Last Myocardial Infarction Date:: unk History of Any Multi-Drug Resistant Organisms: None Reported Past Surgical History: AICD, Section, Heart Catheterization With Stent, Pacemaker, Tubal Ligation Additional Past Surgical History / Comment(s): mitral valve replacement, tubal ligation, Past Anesthesia/Blood Transfusion Reactions: No Reported Reaction Date of Last Stent Placement:: unk Type of Cardiac Device: Permanent Pacemaker, AICD Device Placement Date:: 2014 Past Psychological History: Depression Smoking Status: Former smoker Past Alcohol Use History: None Reported Additional Past Alcohol Use History / Comment(s): <1ppd,started smoking at age 10 Past Drug Use History: None Reported - Past Family History Mother Additional Family Medical History / Comment(s): MOM IN MVA ACCIDENT Father Family Medical History: Coronary Artery Disease (CAD) Additional Family Medical History / Comment(s): CARDIAC DISEASE Medications and Allergies Home Medications Medication Instructions Recorded Confirmed Type Furosemide [Lasix] 40 mg PO BID 02/19/16 03/03/20 History Potassium Chloride 16 meq PO BID 02/19/16 03/03/20 History Simvastatin [Zocor] 40 mg PO HS 02/19/16 03/03/20 History Loratadine 10 mg PO DAILY 05/25/17 03/03/20 History PARoxetine HCL [Paxil] 40 mg PO DAILY 11/21/17 03/03/20 History oxyCODONE-APAP 10-325MG [Percocet 1 tab PO Q6H 11/21/17 03/03/20 History 10-325 mg] Aspirin 81 mg PO DAILY #30 chew 06/01/19 03/03/20 Rx ALPRAZolam [Xanax] 1 mg PO BID 03/03/20 03/03/20 History Albuterol Nebulized [Ventolin 2.5 mg INHALATION RT-TID 03/03/20 03/03/20 History Nebulized] Folic Acid 1 mg PO DAILY 03/03/20 03/03/20 History Metoprolol Tartrate [Lopressor] 12.5 mg PO BID 03/03/20 03/03/20 History Nicotine 14Mg/24Hr Patch [Habitrol 1 patch TRANSDERM DAILY 03/03/20 03/03/20 History 14Mg/24Hr Patch] Sennosides/Docusate Sodium [Senna 2 tab PO DAILY 03/03/20 03/03/20 History Plus 8.6-50 mg Tablet] Warfarin [Coumadin] 3 mg PO DAILY 03/03/20 03/03/20 History Zolpidem Tartrate [Ambien] 5 mg PO HS 03/03/20 03/03/20 History Allergies Allergy/AdvReac Type Severity Reaction Status Date / Time hydromorphone [From Dilaudid] Allergy Unknown Verified 03/03/20 11:56 levofloxacin [From Levaquin] Allergy Anaphylaxis Verified 03/03/20 11:56 (went into a coma) Penicillins Allergy Rash/Hives Verified 03/03/20 11:56 codeine AdvReac Nausea & Verified 03/03/20 11:56 Vomiting Physical Exam Vitals: Vital Signs Temp Pulse Pulse Resp BP BP Pulse Ox 03/03/20 21:52 103 H 03/03/20 21:39 103 H 03/03/20 20:55 98.4 F 103 H 20 98/61 95 03/03/20 18:44 20 93 L 03/03/20 18:21 97.5 F L 100 18 105/67 88 L 03/03/20 18:00 104 H 18 98/69 95 03/03/20 16:47 97.5 F L 103 H 16 90/49 96 03/03/20 16:30 84/54 03/03/20 15:36 91 16 105/74 95 03/03/20 14:05 92 12 95/62 96 03/03/20 12:44 88 16 113/77 95 03/03/20 11:31 98 20 109/78 97 03/03/20 10:59 97.7 F 130 H 18 123/93 93 L Intake and Output 03/03/20 03/03/2020 06:59 14:59 22:59 Output Total 1100 Balance -1100 Output: Urine 1100 Other: Voiding Method Toilet Weight 86.183 kg 86.3 kg Results CBC & Chem 7: 03/03/20 11:12 03/03/20 11:12 Labs: Abnormal Lab Results - Last 24 Hours (Table) 03/03/20 03/03/20 03/03/20 Range/Units 11:12 11:12 11:12 WBC 19.2 H (3.8-10.6) k/uL Hct 47.2 H (34.0-46.0) % MCHC 30.6 L (31.0-37.0) g/dL RDW 15.9 H (11.5-15.5) % Lymphocytes # 8.9 H (1.0-4.8) k/uL Eosinophils # 1.6 H (0-0.7) k/uL Basophils # 0.3 H (0-0.2) k/uL Creatinine 1.11 H (0.52-1.04) mg/dL Glucose 274 H (74-99) mg/dL POC Glucose (mg/dL) (75-99) mg/dL Plasma Lactic Acid Suleman (0.7-2.0) mmol/L Urine Bacteria Rare H (None) /hpf Hyaline Casts 7 H (0-2) /lpf Urine Mucus Rare H (None) /hpf 03/03/20 03/03/20 Range/Units 11:12 20:06 WBC (3.8-10.6) k/uL Hct (34.0-46.0) % MCHC (31.0-37.0) g/dL RDW (11.5-15.5) % Lymphocytes # (1.0-4.8) k/uL Eosinophils # (0-0.7) k/uL Basophils # (0-0.2) k/uL Creatinine (0.52-1.04) mg/dL Glucose (74-99) mg/dL POC Glucose (mg/dL) 106 H (75-99) mg/dL Plasma Lactic Acid Suleman 7.2 H* (0.7-2.0) mmol/L Urine Bacteria (None) /hpf Hyaline Casts (0-2) /lpf Urine Mucus (None) /hpf Thrombosis Risk Factor Assmnt - Choose All That Apply Each Risk Factor Represents 2 Points: Age 61-74 years Thrombosis Risk Factor Assessment Total Risk Factor Score: 2 Thrombosis Risk Factor Assessment Level: Low Risk
[2020-03-03] MEDS: guaiFENesin 600 MG TABLET.ER PO SCH (23:29)
[2020-03-03] MEDS: ZOLPIDEM 5 MG TAB PO SCH (23:33)
[2020-03-04] MEDS: IPRATROPIUM-ALBUTEROL 3 ML NEB INHALATION SCH ×7 (00:58→23:50)
[2020-03-04 06:08] LABS: Glucose,Whole Blood 134 mg/dL (75-99)
[2020-03-04] MEDS: INSULIN ASPART (NovoLOG) 100 UNIT/ML VIAL SQ SCH ×4 (06:40→20:05)
[2020-03-04] MEDS ORDERED: ALBUTEROL NEBULIZED 2.5 MG/3 ML INHALATION SCH (08:00)
[2020-03-04] MEDS: BUDESONIDE 0.5 MG/2 ML NEBU INHALATION SCH ×2 (08:21→20:42)
[2020-03-04 08:27] LABS: INR 1.4 (<1.2); Prothrombin Time 14.3 sec (9.0-12.0)
[2020-03-04] MEDS: methylPREDNISolone SOD SUCCI 40 MG/ML 1 ML VIAL IV SCH ×2 (09:33→20:05)
[2020-03-04] MEDS: NICOTINE 14MG/24HR PATCH TRANSDERM SCH (09:33)
[2020-03-04] MEDS: ALPRAZolam 1 MG TAB PO SCH ×2 (09:34→20:04)
[2020-03-04] MEDS: FOLIC ACID 1 MG TAB PO SCH (09:34)
[2020-03-04] MEDS: PANTOPRAZOLE 40 MG/10 ML VIAL IVP SCH (09:34)
[2020-03-04] MEDS: METOPROLOL TARTRATE 12.5 MG TAB PO SCH ×2 (09:34→20:05)
[2020-03-04] MEDS: FUROSEMIDE 40 MG TAB PO SCH ×2 (09:34→17:38)
[2020-03-04] MEDS: ASPIRIN 81 MG PO SCH (09:34)
[2020-03-04] MEDS: LORATADINE 10 MG TAB PO SCH (09:35)
[2020-03-04] MEDS: PARoxetine 20 MG TAB PO SCH (09:35)
[2020-03-04] MEDS: POTASSIUM CHLORIDE ER 20 MEQ TAB.ER PO SCH ×2 (09:35→20:05)
[2020-03-04] MEDS: SENNOSIDES-DOCUSATE SODIUM 1 EACH TAB PO SCH (09:35)
[2020-03-04] MEDS: guaiFENesin 600 MG TABLET.ER PO SCH ×2 (09:36→20:05)
[2020-03-04 11:54] LABS: Glucose,Whole Blood 130 mg/dL (75-99)
--- NOTE | 2020-03-04 12:50 | CDI ---
Documentation Clarification Form Date: 03/04/2020 12:35:12 PM From: Terra Andres RN CCDS Admit Date: 03/03/2020 04:54:00 PM Patient Name: Nunu Wong Visit Number: [id number] Discharge Date: ATTENTION: The Clinical Documentation Specialists (CDI) and [facility] Coding Staff appreciate your assistance in clarifying documentation. Please respond to the clarification below the line at the bottom and electronically sign. The CDI & [facility] Coding staff will review the response and follow-up if needed. Please note: Queries are made part of the Legal Health Record. If you have any questions, please contact the author of this message via ITS. Dr. Eric Argueta A focused sepsis exam was completed in the ED 03/03 History/Risk Factors: 69-year-old female presents to the ED shortness of breath and low-grade fever. Admitted with Multilobar Pneumonia suspect Gram Neg. Clinical Indicators: Medical Hx: COPD, Nicotine dependence, chronic systolic CHF, stage 3 ckd and oxygen dependent 03/03 WBC: 19.2 03/03 Lactic acid: 7.2 03/03 Vital signs on admission: B/P: 123/93; HR: 130; Temp: 97.7 F Axillary; RR: 18; SpO2 4L nasal cannula 03/03 CXR: Suspect CHF exacerbation new moderate interstitial edema and central vascular congestion Treatment: Antibiotics: 03/03 Azithromycin Ivpb Q 24 hrs; Rocephin Ivpb Q 24 hrs; IV Bolus: 03/03 0.9ns 1.250 L In your professional opinion, please clarify if these findings signify one of the following conditions, whether the condition is POA, and cause, if known: Sepsis ruled out Sepsis POA Other, please specify Unable to determine Identify the (suspected) organism Link or clarify if there is associated (due to/with): Organ failure Shock SIRS Criteria (2 or more of the following may indicate SIRS): -Temperature < 96.8F (36C) or > 101.0F (38.3C) -Heart Rate > 90 bpm -Respiratory Rate > 20 breaths/min or PaCO2 < 32 mmHg -White Blood Cell Count > 12,000 or < 4,000 cells/mm3 or > 10% bands -Lactate >2.0 mmol/L (>4.0 is equivalent to septic shock) (Last Revision: July 2017) Sepsis , POA MTDD
--- NOTE | 2020-03-04 13:32 | P.GSCN ---
History of Present Illness Consult date: 03/04/20 History of present illness: CHIEF COMPLAINT: Abdominal pain with vomiting HISTORY OF PRESENT ILLNESS: This is a 69-year-old female with a known past medical history of chronic kidney disease, atrial fibrillation coronary artery disease with stent. She initially presented with shortness of breath, congestive cough And low-grade fever. Patient does have a history of pacemaker placement and AICD. Patient has been complaining of abdominal pain as he has had vomiting. Computed tomography scan of the abdomen and pelvis shows circumferentially thickened distal esophagus. Findings may represent inflammation such as esophagitis. However neoplastic etiology is included in differential. Patient seen and examined by Dr. Baker PAST MEDICAL HISTORY: See list. PAST SURGICAL HISTORY: See list. MEDICATIONS: See list. ALLERGIES: See list. SOCIAL HISTORY: No illicit drug use. REVIEW OF SYSTEMS: CONSTITUTIONAL: Denies fever or chills. HEENT: Denies blurred vision, vision changes, or eye pain. Denies hemoptysis CARDIOVASCULAR: Denies chest pain or pressure. RESPIRATORY: No shortness of breath. GASTROINTESTINAL: See HPI for pertinent findings HEMATOLOGIC: Denies bleeding disorders. GENITOURINARY: Denies any blood in urine or increased urinary frequency. SKIN: Denies pruitis. Denies rash. PHYSICAL EXAM: VITAL SIGNS: Reviewed GENERAL: Well-developed in no acute distress. HEENT: No sclera icterus. Extraocular movements grossly intact. Moist buccal mucosa. Head is atraumatic, normocephalic. No nasal drainage. ABDOMEN: Soft. Nondistended. Epigastric tenderness NEUROLOGIC: Alert and oriented. Cranial nerves II through XII grossly intact. LABORATORY DATA: WBC 19.2 hemoglobin 14.4 LFTs normal lipase normal IMAGING: Computed tomography scan of the abdomen and pelvis shows circumferentially thickened distal esophagus. Findings may represent inflammation such as esophagitis. However neoplastic etiology is included in differential. ASSESSMENT: 1. Abdominal pain with vomiting 2. Thickened distal esophagus noted on computed tomography scan of abdomen and pelvis PLAN: -EGD scheduled with Dr. Baker tomorrow Thank you for this consultation Physician Ship Scaler note has been reviewed by physician. Signing provider agrees with the documented findings, assessment, and plan of care. Past Medical History Past Medical History: Atrial Fibrillation, Asthma, Heart Failure, COPD, GI Ble ed, Myocardial Infarction ([place]), Osteoarthritis (OA), Pneumonia Additional Past Medical History / Comment(s): N,V,hypotensive, chronic back pain Last Myocardial Infarction Date:: unk History of Any Multi-Drug Resistant Organisms: None Reported Past Surgical History: AICD, Section, Heart Catheterization With Stent, Pacemaker, Tubal Ligation Additional Past Surgical History / Comment(s): mitral valve replacement, tubal ligation, Past Anesthesia/Blood Transfusion Reactions: No Reported Reaction Date of Last Stent Placement:: unk Type of Cardiac Device: Permanent Pacemaker, AICD Device Placement Date:: 2014 Past Psychological History: Depression Smoking Status: Former smoker Past Alcohol Use History: None Reported Additional Past Alcohol Use History / Comment(s): <1ppd,started smoking at age 10 Past Drug Use History: None Reported - Past Family History Mother Additional Family Medical History / Comment(s): MOM IN MVA ACCIDENT Father Family Medical History: Coronary Artery Disease (CAD) Additional Family Medical History / Comment(s): CARDIAC DISEASE Medications and Allergies Home Medications Medication Instructions Recorded Confirmed Type Furosemide [Lasix] 40 mg PO BID 02/19/16 03/03/20 History Potassium Chloride 16 meq PO BID 02/19/16 03/03/20 History Simvastatin [Zocor] 40 mg PO HS 02/19/16 03/03/20 History Loratadine 10 mg PO DAILY 05/25/17 03/03/20 History PARoxetine HCL [Paxil] 40 mg PO DAILY 11/21/17 03/03/20 History oxyCODONE-APAP 10-325MG [Percocet 1 tab PO Q6H 11/21/17 03/03/20 History 10-325 mg] Aspirin 81 mg PO DAILY #30 chew 06/01/19 03/03/20 Rx ALPRAZolam [Xanax] 1 mg PO BID 03/03/20 03/03/20 History Albuterol Nebulized [Ventolin 2.5 mg INHALATION RT-TID 03/03/20 03/03/20 History Nebulized] Folic Acid 1 mg PO DAILY 03/03/20 03/03/20 History Metoprolol Tartrate [Lopressor] 12.5 mg PO BID 03/03/20 03/03/20 History Nicotine 14Mg/24Hr Patch [Habitrol 1 patch TRANSDERM DAILY 03/03/20 03/03/20 History 14Mg/24Hr Patch] Sennosides/Docusate Sodium [Senna 2 tab PO DAILY 03/03/20 03/03/20 History Plus 8.6-50 mg Tablet] Warfarin [Coumadin] 3 mg PO DAILY 03/03/20 03/03/20 History Zolpidem Tartrate [Ambien] 5 mg PO HS 03/03/20 03/03/20 History Allergies Allergy/AdvReac Type Severity Reaction Status Date / Time hydromorphone [From Dilaudid] Allergy Unknown Verified 03/03/20 11:56 levofloxacin [From Levaquin] Allergy Anaphylaxis Verified 03/03/20 11:56 (went into a coma) Penicillins Allergy Rash/Hives Verified 03/03/20 11:56 codeine AdvReac Nausea & Verified 03/03/20 11:56 Vomiting Surgical - Exam Vital Signs Temp Pulse Resp BP Pulse Ox 97.7 F 130 H 18 123/93 93 L 03/03/20 10:59 03/03/20 10:59 03/03/20 10:59 03/03/20 10:59 03/03/20 10:59 Results - Labs 03/03/20 11:12 03/03/20 11:12 Abnormal Lab Results - Last 24 Hours (Table) 03/03/20 03/03/20 03/04/20 Range/Units 11:12 20:06 06:06 PT (9.0-12.0) sec INR (<1.2) POC Glucose (mg/dL) 106 H 134 H (75-99) mg/dL Urine Bacteria Rare H (None) /hpf Hyaline Casts 7 H (0-2) /lpf Urine Mucus Rare H (None) /hpf 03/04/20 03/04/20 Range/Units 07:45 11:53 PT 14.3 H (9.0-12.0) sec INR 1.4 H (<1.2) POC Glucose (mg/dL) 130 H (75-99) mg/dL Urine Bacteria (None) /hpf Hyaline Casts (0-2) /lpf Urine Mucus (None) /hpf
[2020-03-04 13:56] LABS: Magnesium 2.1 mg/dL (1.6-2.3)
[2020-03-04] MEDS ORDERED: AZITHROMYCIN 500 MG in SODIUM CHLORIDE 0.9% 250 ML IVPB SCH (16:00)
[2020-03-04 16:46] LABS: Glucose,Whole Blood 181 mg/dL (75-99)
[2020-03-04] MEDS ORDERED: WARFARIN 2 MG TAB PO ONE (18:00)
[2020-03-04] MEDS: LACTATED RINGERS 1,000 ML IV SCH (19:51)
[2020-03-04] MEDS: ATORVASTATIN 20 MG TAB PO SCH (20:04)
[2020-03-04] MEDS: oxyCODONE-APAP 10-325MG 1 EACH TAB PO PRN (20:06)
[2020-03-04 20:16] LABS: Glucose,Whole Blood 199 mg/dL (75-99)
[2020-03-04] MEDS: ZOLPIDEM 5 MG TAB PO SCH (23:14)
--- NOTE | 2020-03-04 23:49 | P.PN ---
Progress Note - Text Progress Note Date: 03/04/20 Chief Complaint: Short of breath cough History of presenting complaint This is a 69-year-old patient of Dr. Ervin adame. Chronic stable medical conditions include chronic kidney disease stage III, atrial fibrillation, coronary artery stent, primary osteoarthritis. Patient been having shortness of breath for some time now progressively getting worse. Very congested cough. Has been bringing up phlegm. Yellow. Appetite is okay. Had some low-grade fever. Some wheezing shortness of breath. Tired. Admitted with pneumonia, COPD exacerbation. Started IV ceftriaxone Zithromax IV Solu-Medrol DuoNeb. Today-sitting up. Less cough. Sputum production present. Some wheezing present. Oral intake improving Review of systems: Was done for constitutional, cardiovascular, GI, pulmonary. relevant finding as above Active Medications Acetaminophen (Acetaminophen Tab 325 Mg Tab) 650 mg PO Q6HR PRN PRN Reason: Mild Pain or Fever > 100.5 Albuterol/Ipratropium (Ipratropium-Albuterol 3 Ml Neb) 3 ml INHALATION Q4H [facility] Last Admin: 03/04/20 20:42 Dose: 3 ml Documented by: Alprazolam (Alprazolam 1 Mg Tab) 1 mg PO BID [facility] Last Admin: 03/04/20 20:04 Dose: Not Given Documented by: Aspirin (Aspirin 81 Mg) 81 mg PO DAILY [facility] Last Admin: 03/04/20 09:34 Dose: 81 mg Documented by: Atorvastatin Calcium (Atorvastatin 20 Mg Tab) 20 mg PO HS [facility] Last Admin: 03/04/20 20:04 Dose: 20 mg Documented by: Azithromycin (Azithromycin 500 Mg Tab) 500 mg PO DAILY@1600 [facility] Budesonide (Budesonide 0.5 Mg/2 Ml Nebu) 0.5 mg INHALATION RT-BID [facility] Last Admin: 03/04/20 20:42 Dose: 0.5 mg Documented by: Calcium Carbonate/Glycine (Calcium Carbonate 500 Mg Chewable) 1,000 mg PO Q4HR PRN PRN Reason: Dyspepsia Folic Acid (Folic Acid 1 Mg Tab) 1 mg PO DAILY [facility] Last Admin: 03/04/20 09:34 Dose: 1 mg Documented by: Furosemide (Furosemide 40 Mg Tab) 40 mg PO BID@0900,1600 [facility] Last Admin: 03/04/20 17:38 Dose: 40 mg Documented by: Guaifenesin (Guaifenesin 600 Mg Tablet.Er) 1,200 mg PO Q12HR [facility] Last Admin: 03/04/20 20:05 Dose: 1,200 mg Documented by: Ceftriaxone Sodium 2 gm/ (Sodium Chloride) 50 mls @ 100 mls/hr IVPB Q24H [facility] Last Admin: 03/04/20 17:37 Dose: 100 mls/hr Documented by: Lactated Ringer's (Lactated Ringers) 1,000 mls @ 20 mls/hr IV .Q24H [facility] Last Admin: 03/04/20 19:51 Dose: 20 mls/hr Documented by: Insulin Aspart (Insulin Aspart (Novolog) 100 Unit/Ml Vial) 0 unit SQ ACHS [facility]; Protocol Last Admin: 03/04/20 20:05 Dose: 5 unit Documented by: Lactulose (Lactulose 20 Gm/30 Ml Cup) 20 gm PO DAILY PRN PRN Reason: Constipation Loratadine (Loratadine 10 Mg Tab) 10 mg PO DAILY [facility] Last Admin: 03/04/20 09:35 Dose: 10 mg Documented by: Melatonin (Melatonin 3 Mg Tablet) 3 mg PO HS PRN PRN Reason: Insomnia Methylprednisolone Sodium Succinate (Methylprednisolone Sod Succi 40 Mg/Ml 1 Ml Vial) 40 mg IV Q12HR [facility] Last Admin: 03/04/20 20:05 Dose: 40 mg Documented by: Metoprolol Tartrate (Metoprolol Tartrate 12.5 Mg Tab) 12.5 mg PO BID [facility] Last Admin: 03/04/20 20:05 Dose: 12.5 mg Documented by: Miscellaneous Information (Warfarin Per Pharmacy) 0 each MISCELLANE DIRECTED PRN PRN Reason: INR Naloxone HCl (Naloxone 0.4 Mg/Ml 1 Ml Vial) 0.2 mg IV Q2M PRN PRN Reason: Opioid Reversal Nicotine (Nicotine 14mg/24hr Patch) 1 patch TRANSDERM DAILY [facility] Last Admin: 03/04/20 09:33 Dose: 1 patch Documented by: Oxycodone/Acetaminophen (Oxycodone-Apap 10-325mg 1 Each Tab) 1 each PO Q6H PRN PRN Reason: Mild to Moderate Pain Last Admin: 03/04/20 20:06 Dose: 1 each Documented by: Pantoprazole Sodium (Pantoprazole 40 Mg/10 Ml Vial) 40 mg IVP DAILY [facility] Last Admin: 03/04/20 09:34 Dose: 40 mg Documented by: Paroxetine HCl (Paroxetine 20 Mg Tab) 40 mg PO DAILY [facility] Last Admin: 03/04/20 09:35 Dose: 40 mg Documented by: Potassium Chloride (Potassium Chloride Er 20 Meq Tab.Er) 20 meq PO BID [facility] Last Admin: 03/04/20 20:05 Dose: 20 meq Documented by: Senna/Docusate Sodium (Sennosides-Docusate Sodium 1 Each Tab) 2 each PO DAILY [facility] Last Admin: 03/04/20 09:35 Dose: 2 each Documented by: Zolpidem Tartrate (Zolpidem 5 Mg Tab) 5 mg PO HS [facility] Last Admin: 03/04/20 23:14 Dose: Not Given Documented by: On examination: VITAL SIGNS: 98, 104, 18, 100/55, 92% on 3 L GENERAL APPEARANCE: Sitting up in bed, tired HEENT: Normal external appearance of nose and ear. Oral cavity normal EYES: Pupils equal. Conjunctiva normal. NECK: JVD not raised. Mass not palpable. RESPIRATORY: Respiratory effort increased,. Decreased air entry prolonged expiration CARDIOVASCULAR: First and second sounds normal. No edema. ABDOMEN: Soft. Liver and spleen not palpable. No tenderness. No mass palpable. PSYCHIATRY: Alert and oriented x3. Mood and affect-anxious. INVESTIGATIONS, reviewed in the clinical context: Potassium 4 creatinine 1.08 Admission testing White count 19.2 hemoglobin 14.4 platelets 336 potassium 4.4 creatinine 1.11 lactic acid 7.2 troponin I less than 0.012 proBNP 429 EKG tracing personally reviewed by me-sinus rhythm, right bundle branch block, sinus tachycardia Computed tomography scan of the abdomen some thickening of the distal esophagus Chest x-ray film personally reviewed by me-diffuse infiltrates Assessment: -Multilobar Pneumonia suspect gram-negative organism, , POA-slow to respond -chronic congestive heart failure from systolic dysfunction EF 30-35%, POA -Persistent atrial fibrillation -Acute COPD exacerbation in a current smoker, slow to respond -Chronic nicotine dependence patient cigarette smoker -Coronary artery disease with prior history of stent -Primary osteoarthritis -Coumadin monitoring -chronic kidney disease stage III likely nephrosclerosis Plan: Continue IV ceftriaxone. IV steroids, inhaled steroids. Mucinex. Care was discussed with the patient. Follow
[2020-03-05] MEDS: IPRATROPIUM-ALBUTEROL 3 ML NEB INHALATION SCH ×7 (04:18→23:49)
[2020-03-05 06:14] LABS: Glucose,Whole Blood 122 mg/dL (75-99)
[2020-03-05] MEDS: INSULIN ASPART (NovoLOG) 100 UNIT/ML VIAL SQ SCH ×4 (06:15→20:20)
[2020-03-05 07:57] LABS: Potassium 4.1 mmol/L (3.5-5.1)
[2020-03-05 08:02] LABS: INR 1.7 (<1.2); Prothrombin Time 16.8 sec (9.0-12.0)
[2020-03-05] MEDS: BUDESONIDE 0.5 MG/2 ML NEBU INHALATION SCH ×2 (08:40→22:31)
[2020-03-05] MEDS: SENNOSIDES-DOCUSATE SODIUM 1 EACH TAB PO SCH (09:21)
[2020-03-05] MEDS: METOPROLOL TARTRATE 12.5 MG TAB PO SCH ×2 (09:21→20:20)
[2020-03-05] MEDS: ASPIRIN 81 MG PO SCH (09:21)
[2020-03-05] MEDS: ALPRAZolam 1 MG TAB PO SCH ×2 (09:21→22:49)
[2020-03-05] MEDS: POTASSIUM CHLORIDE ER 20 MEQ TAB.ER PO SCH ×2 (09:21→20:20)
[2020-03-05] MEDS: FOLIC ACID 1 MG TAB PO SCH (09:22)
[2020-03-05] MEDS: PARoxetine 20 MG TAB PO SCH (09:22)
[2020-03-05] MEDS: guaiFENesin 600 MG TABLET.ER PO SCH ×2 (09:22→20:19)
[2020-03-05] MEDS: LORATADINE 10 MG TAB PO SCH (09:23)
[2020-03-05] MEDS: FUROSEMIDE 40 MG TAB PO SCH ×2 (09:23→16:31)
[2020-03-05] MEDS: methylPREDNISolone SOD SUCCI 40 MG/ML 1 ML VIAL IV SCH ×2 (09:23→20:20)
[2020-03-05] MEDS: PANTOPRAZOLE 40 MG/10 ML VIAL IVP SCH (09:24)
--- NOTE | 2020-03-05 11:01 | CDI ---
Documentation Clarification Form Date: 03/04/2020 12:51:48 PM From: Terra Andres RN CCDS Admit Date: 03/03/2020 04:54:00 PM Patient Name: Nunu Wong Visit Number: [id number] Discharge Date: ATTENTION: The Clinical Documentation Specialists (CDI) and [facility] Coding Staff appreciate your assistance in clarifying documentation. Please respond to the clarification below the line at the bottom and electronically sign. The CDI & [facility] Coding staff will review the response and follow-up if needed. Please note: Queries are made part of the Legal Health Record. If you have any questions, please contact the author of this message via ITS. Dr. Eric Argueta The patient presented with the shortness of breath and low-grade fever per H&P 03/03 History/Risk Factors: 69-year-old female presents to the ED shortness of breath and low-grade fever, congested cough with phlegm. Admitted with Multilobar Pneumonia suspect Gram Neg. Clinical Indicators: Medical Hx: COPD, Nicotine dependence, chronic systolic CHF, stage 3 ckd and oxygen dependent Tobacco use: chronic nicotine dependence, cigarette smoker 03/03 Home oxygen: in Pulmonology consult - oxygen dependent 03/03 Vital signs on admission: B/P: 123/93; HR: 130; Temp: 97.7 F Axillary; RR: 18; SpO2 4L nasal cannula 03/03 H&P Lung/Breathing assessment: Respiratory effort increased, Decreased air entry prolonged expiration and wheezing. Treatment: Breathing tx 03/03 Albuterol Q 4 shana; 03/04 Pulmicort BID; O2 4L nasal cannula In your professional opinion, can you please clarify if these findings signify one of the following conditions? Acute on Chronic Respiratory Failure Chronic Respiratory Failure Other Diagnosis, please specify Unable to determine Specificity: If known, further specify (if known): With hypercapnia? (pCO2 >50 and pH <7.35) With hypoxia? (pO2 <60 mm Hg or SpO2 <91% on room air) (Last Query Form Revision: December 2018) MTDD
--- NOTE | 2020-03-05 11:16 | P.PN ---
Subjective Progress Note Date: 03/04/20 Principal diagnosis: Acute COPD exacerbation Tracheobronchitis Bilateral pneumonia Distal esophageal thickening with symptoms of abdominal pain and intermittent in Mrs. Chronic atrial fibrillation Chronic systolic heart failure Coronary artery disease Extensive history of smoking and nicotine use 03/04/2020, patient seen eval examined during the rounds shortness of breath slightly better cough is better, GI service is on consult patient is scheduled for endoscopy, respiratory status slightly improved, cough congestion is better, patient is still gagging however intermittently but severity definitely have improved compared to yesterday exam This is a 68-year-old female with long-standing history of COPD and stage hypoxic respiratory failure due to and his stay COPD oxygen dependent, patient has a recent hospitalization in another hospital several months ago with acute COPD exacerbation she has been gagging coughing bringing up mucoid to light brown sputum, along with that she is been complaining of abdominal pain, denies any chest pain, does have shortness of breath smoking is down significantly, her significant history is for significant valvular heart disease history of mitral valve replacement at [facility], she has been on anticoagulation with Coumadin, also has a chronic atrial fibrillation history of MD and pneumonia, she has chronic systolic heart failure status post AICD and pacemaker also has a history of coronary artery disease with multiple stent placement in the past, her admitted chest x-ray significant for CHF-like changes and interstitial edema, computed tomography scan of the abdominal and pelvis significant for a by basilar atelectasis and septal thickening in the bases of the lung, liver is normal, dilated duct in the biliary area has been noted, significant finding of distal esophagus circumferential thickening is noted likely neoplastic changes Objective - Vital Signs Vital signs: Vital Signs Temp 97.9 F 03/04/20 23:44 Pulse 104 H 03/04/20 23:44 Resp 18 03/04/20 23:44 BP 96/55 03/04/20 23:44 Pulse Ox 98 03/04/20 23:44 Intake & Output 03/04/20 03/04/20 03/05/20 06:59 18:59 06:59 Intake Total 10 240 10 Output Total 1100 Balance -1090 240 10 Weight 86.3 kg Intake: IV 10 10 0.9 10 10 Oral 240 Output: Urine 1100 Other: Voiding Method Toilet Toilet # Voids 1 2 1 - Exam - Constitutional General appearance: average body habitus, cooperative, disheveled - EENT Eyes: PERRLA Ears: bilateral: normal - Neck Neck: normal ROM Carotids: bilateral: upstroke normal Thyroid: bilateral: normal size - Respiratory Respiratory: bilateral: diminished - Cardiovascular Rhythm: regular Heart sounds: normal: S1, S2 - Gastrointestinal General gastrointestinal: Present: normal bowel sounds, soft - Integumentary Integumentary: Present: normal turgor - Neurologic Neurologic: Present: CNII-XII intact - Musculoskeletal Musculoskeletal: Present: gait normal, generalized weakness, strength equal bilaterally - Psychiatric Psychiatric: Present: A&O x's 3, appropriate affect, intact judgment & insight - Labs CBC & Chem 7: 03/03/20 11:12 03/05/20 06:51 Labs: Abnormal Lab Results - Last 24 Hours (Table) 03/04/20 03/04/20 03/04/20 Range/Units 06:06 07:45 11:53 PT 14.3 H (9.0-12.0) sec INR 1.4 H (<1.2) Carbon Dioxide (22-30) mmol/L Creatinine (0.52-1.04) mg/dL Glucose (74-99) mg/dL POC Glucose (mg/dL) 134 H 130 H (75-99) mg/dL 03/04/20 03/04/20 03/04/20 Range/Units 13:33 16:45 19:58 PT (9.0-12.0) sec INR (<1.2) Carbon Dioxide 33 H (22-30) mmol/L Creatinine 1.08 H (0.52-1.04) mg/dL Glucose 128 H (74-99) mg/dL POC Glucose (mg/dL) 181 H 199 H (75-99) mg/dL Microbiology - Last 24 Hours (Table) 03/03/20 12:51 Blood Culture - Preliminary Blood No Growth after 24 hours Assessment and Plan Assessment: Acute COPD exacerbation Tracheobronchitis Bilateral pneumonia Distal esophageal thickening with symptoms of abdominal pain and intermittent in Mrs. Chronic atrial fibrillation Chronic systolic heart failure Coronary artery disease Extensive history of smoking and nicotine use Plan: Continue antibiotics Supplemental oxygen Deep breathing exercises incentive spirometry Bronchodilators IV steroids PPI evaluation for endoscopy Further recommendations pending plan of care as per clinical response of the patient Time with Patient: Greater than 30
--- NOTE | 2020-03-05 11:17 | P.PN ---
Subjective Progress Note Date: 03/05/20 Principal diagnosis: Acute COPD exacerbation Tracheobronchitis Bilateral pneumonia Distal esophageal thickening with symptoms of abdominal pain and intermittent in Mrs. Chronic atrial fibrillation Chronic systolic heart failure Coronary artery disease Extensive history of smoking and nicotine use 03/05/2020, patient is sitting upright in the bed breathing comfortably sh ortness of breath with stair cough is there however severity has improved, patient is scheduled for endoscopy later on today 03/04/2020, patient seen eval examined during the rounds shortness of breath slightly better cough is better, GI service is on consult patient is scheduled for endoscopy, respiratory status slightly improved, cough congestion is better, patient is still gagging however intermittently but severity definitely have improved compared to yesterday exam This is a 68-year-old female with long-standing history of COPD and stage hypoxic respiratory failure due to and his stay COPD oxygen dependent, patient has a recent hospitalization in another hospital several months ago with acute COPD exacerbation she has been gagging coughing bringing up mucoid to light brown sputum, along with that she is been complaining of abdominal pain, denies any chest pain, does have shortness of breath smoking is down significantly, her significant history is for significant valvular heart disease history of mitral valve replacement at [facility], she has been on anticoagulation with Coumadin, also has a chronic atrial fibrillation history of DC and pneumonia, she has chronic systolic heart failure status post AICD and pacemaker also has a history of coronary artery disease with multiple stent placement in the past, her admitted chest x-ray significant for CHF-like changes and interstitial edema, computed tomography scan of the abdominal and pelvis significant for a by basilar atelectasis and septal thickening in the bases of the lung, liver is normal, dilated duct in the biliary area has been noted, significant finding of distal esophagus circumferential thickening is noted likely neoplastic changes Objective - Vital Signs Vital signs: Vital Signs Temp 98.0 F 03/05/20 08:30 Pulse 96 03/05/20 08:56 Resp 20 03/05/20 08:30 BP 120/61 03/05/20 08:30 Pulse Ox 95 03/05/20 08:30 Intake & Output 03/04/20 03/05/20 03/05/20 18:59 06:59 18:59 Intake Total 240 10 Balance 240 10 Weight 86.6 kg Intake: IV 10 0.9 10 Oral 240 Other: Voiding Method Toilet # Voids 2 1 - Exam - Constitutional General appearance: average body habitus, cooperative, disheveled - EENT Eyes: PERRLA Ears: bilateral: normal - Neck Neck: normal ROM Carotids: bilateral: upstroke normal Thyroid: bilateral: normal size - Respiratory Respiratory: bilateral: diminished - Cardiovascular Rhythm: regular Heart sounds: normal: S1, S2 - Labs CBC & Chem 7: 03/03/20 11:12 03/05/20 06:51 Labs: Abnormal Lab Results - Last 24 Hours (Table) 03/04/20 03/04/20 03/04/20 Range/Units 11:53 13:33 16:45 PT (9.0-12.0) sec INR (<1.2) Carbon Dioxide 33 H (22-30) mmol/L BUN (7-17) mg/dL Creatinine 1.08 H (0.52-1.04) mg/dL Glucose 128 H (74-99) mg/dL POC Glucose (mg/dL) 130 H 181 H (75-99) mg/dL 03/04/20 03/05/20 03/05/20 Range/Units 19:58 06:12 06:51 PT 16.8 H (9.0-12.0) sec INR 1.7 H (<1.2) Carbon Dioxide (22-30) mmol/L BUN (7-17) mg/dL Creatinine (0.52-1.04) mg/dL Glucose (74-99) mg/dL POC Glucose (mg/dL) 199 H 122 H (75-99) mg/dL 03/05/20 Range/Units 06:51 PT (9.0-12.0) sec INR (<1.2) Carbon Dioxide 37 H (22-30) mmol/L BUN 20 H (7-17) mg/dL Creatinine 1.06 H (0.52-1.04) mg/dL Glucose 122 H (74-99) mg/dL POC Glucose (mg/dL) (75-99) mg/dL Microbiology - Last 24 Hours (Table) 03/03/20 12:51 Blood Culture - Preliminary Blood No Growth after 24 hours Assessment and Plan Assessment: Acute COPD exacerbation Tracheobronchitis Bilateral pneumonia Distal esophageal thickening with symptoms of abdominal pain and intermittent in Mrs. Chronic atrial fibrillation Chronic systolic heart failure Coronary artery disease Extensive history of smoking and nicotine use Plan: Continue antibiotics Supplemental oxygen Deep breathing exercises incentive spirometry Bronchodilators IV steroids PPI evaluation for endoscopy Further recommendations pending plan of care as per clinical response of the patient Time with Patient: Greater than 30
[2020-03-05] MEDS: NICOTINE 14MG/24HR PATCH TRANSDERM SCH (11:37)
[2020-03-05 11:38] LABS: Glucose,Whole Blood 125 mg/dL (75-99)
[2020-03-05] MEDS: AZITHROMYCIN 500 MG TAB PO SCH (16:31)
[2020-03-05 16:38] LABS: Glucose,Whole Blood 353 mg/dL (75-99)
[2020-03-05] MEDS ORDERED: WARFARIN 3 MG TAB PO ONE (18:00)
[2020-03-05] MEDS ORDERED: INSULIN ASPART (NovoLOG) 100 UNIT/ML VIAL SQ ONE (19:06)
[2020-03-05 19:09] LABS: Glucose,Whole Blood 166 mg/dL (75-99)
[2020-03-05 20:07] LABS: Glucose,Whole Blood 163 mg/dL (75-99)
[2020-03-05] MEDS: LACTATED RINGERS 1,000 ML IV SCH (20:14)
[2020-03-05] MEDS: ATORVASTATIN 20 MG TAB PO SCH (20:19)
[2020-03-05] MEDS: oxyCODONE-APAP 10-325MG 1 EACH TAB PO PRN (20:20)
[2020-03-05] MEDS: ZOLPIDEM 5 MG TAB PO SCH (20:50)
--- NOTE | 2020-03-05 23:21 | P.PN ---
Progress Note - Text Progress Note Date: 03/05/20 Chief Complaint: Short of breath cough History of presenting complaint This is a 69-year-old patient of Dr. Ervin adame. Chronic stable medical conditions include chronic kidney disease stage III, atrial fibrillation, coronary artery stent, primary osteoarthritis. Patient been having shortness of breath for some time now progressively getting worse. Very congested cough. Has been bringing up phlegm. Yellow. Appetite is okay. Had some low-grade fever. Some wheezing shortness of breath. Tired. Admitted with pneumonia, COPD exacerbation. Started IV ceftriaxone Zithromax IV Solu-Medrol DuoNeb. Today-oral intake better. Still wheezing and short of breath. Tired. Review of systems: Was done for constitutional, cardiovascular, GI, pulmonary. relevant finding as above Active Medications Acetaminophen (Acetaminophen Tab 325 Mg Tab) 650 mg PO Q6HR PRN PRN Reason: Mild Pain or Fever > 100.5 Albuterol/Ipratropium (Ipratropium-Albuterol 3 Ml Neb) 3 ml INHALATION Q4H [facility] Last Admin: 03/05/20 19:22 Dose: 3 ml Documented by: Alprazolam (Alprazolam 1 Mg Tab) 1 mg PO BID [facility] Last Admin: 03/05/20 22:49 Dose: 1 mg Documented by: Aspirin (Aspirin 81 Mg) 81 mg PO DAILY [facility] Last Admin: 03/05/20 09:21 Dose: 81 mg Documented by: Atorvastatin Calcium (Atorvastatin 20 Mg Tab) 20 mg PO HS [facility] Last Admin: 03/05/20 20:19 Dose: 20 mg Documented by: Azithromycin (Azithromycin 500 Mg Tab) 500 mg PO DAILY@1600 [facility] Last Admin: 03/05/20 16:31 Dose: 500 mg Documented by: Budesonide (Budesonide 0.5 Mg/2 Ml Nebu) 0.5 mg INHALATION RT-BID [facility] Last Admin: 03/05/20 22:31 Dose: Not Given Documented by: Calcium Carbonate/Glycine (Calcium Carbonate 500 Mg Chewable) 1,000 mg PO Q4HR PRN PRN Reason: Dyspepsia Folic Acid (Folic Acid 1 Mg Tab) 1 mg PO DAILY [facility] Last Admin: 03/05/20 09:22 Dose: 1 mg Documented by: Furosemide (Furosemide 40 Mg Tab) 40 mg PO BID@0900,1600 [facility] Last Admin: 03/05/20 16:31 Dose: 40 mg Documented by: Guaifenesin (Guaifenesin 600 Mg Tablet.Er) 1,200 mg PO Q12HR [facility] Last Admin: 03/05/20 20:19 Dose: 1,200 mg Documented by: Ceftriaxone Sodium 2 gm/ (Sodium Chloride) 50 mls @ 100 mls/hr IVPB Q24H [facility] Last Admin: 03/05/20 16:31 Dose: 100 mls/hr Documented by: Lactated Ringer's (Lactated Ringers) 1,000 mls @ 20 mls/hr IV .Q24H [facility] Last Admin: 03/05/20 20:14 Dose: 20 mls/hr Documented by: Insulin Aspart (Insulin Aspart (Novolog) 100 Unit/Ml Vial) 0 unit SQ [facility]; Protocol Last Admin: 03/05/20 20:20 Dose: 3 unit Documented by: Lactulose (Lactulose 20 Gm/30 Ml Cup) 20 gm PO DAILY PRN PRN Reason: Constipation Loratadine (Loratadine 10 Mg Tab) 10 mg PO DAILY [facility] Last Admin: 03/05/20 09:23 Dose: 10 mg Documented by: Melatonin (Melatonin 3 Mg Tablet) 3 mg PO HS PRN PRN Reason: Insomnia Methylprednisolone Sodium Succinate (Methylprednisolone Sod Succi 40 Mg/Ml 1 Ml Vial) 40 mg IV Q12HR [facility] Last Admin: 03/05/20 20:20 Dose: 40 mg Documented by: Metoprolol Tartrate (Metoprolol Tartrate 12.5 Mg Tab) 12.5 mg PO BID [facility] Last Admin: 03/05/20 20:20 Dose: 12.5 mg Documented by: Miscellaneous Information (Warfarin Per Pharmacy) 0 each MISCELLANE DIRECTED PRN PRN Reason: INR Naloxone HCl (Naloxone 0.4 Mg/Ml 1 Ml Vial) 0.2 mg IV Q2M PRN PRN Reason: Opioid Reversal Nicotine (Nicotine 14mg/24hr Patch) 1 patch TRANSDERM DAILY [facility] Last Admin: 03/05/20 11:37 Dose: 1 patch Documented by: Oxycodone/Acetaminophen (Oxycodone-Apap 10-325mg 1 Each Tab) 1 each PO Q6H PRN PRN Reason: Mild to Moderate Pain Last Admin: 03/05/20 20:20 Dose: 1 each Documented by: Pantoprazole Sodium (Pantoprazole 40 Mg Tablet) 40 mg PO DAILY [facility] Paroxetine HCl (Paroxetine 20 Mg Tab) 40 mg PO DAILY [facility] Last Admin: 03/05/20 09:22 Dose: 40 mg Documented by: Potassium Chloride (Potassium Chloride Er 20 Meq Tab.Er) 20 meq PO BID [facility] Last Admin: 03/05/20 20:20 Dose: 20 meq Documented by: Senna/Docusate Sodium (Sennosides-Docusate Sodium 1 Each Tab) 2 each PO DAILY [facility] Last Admin: 03/05/20 09:21 Dose: 2 each Documented by: Zolpidem Tartrate (Zolpidem 5 Mg Tab) 5 mg PO HS [facility] Last Admin: 03/05/20 20:50 Dose: Not Given Documented by: On examination: VITAL SIGNS: 98, 90, 18, 125/75, 95% 2 L GENERAL APPEARANCE: Sitting up in bed, tired EYES: Pupils equal. Conjunctiva normal. NECK: JVD not raised. Mass not palpable. RESPIRATORY: Respiratory effort increased,. Decreased air entry, prolonged expiration CARDIOVASCULAR: First and second sounds normal. No edema. ABDOMEN: Soft. Liver and spleen not palpable. No tenderness. No mass palpable. PSYCHIATRY: Alert and oriented x3. Mood and affect-anxious. INVESTIGATIONS, reviewed in the clinical context: INR 1.7, potassium 4.1, creatinine 1.06 Admission testing White count 19.2 hemoglobin 14.4 platelets 336 potassium 4.4 creatinine 1.11 lactic acid 7.2 troponin I less than 0.012 proBNP 429 EKG tracing personally reviewed by me-sinus rhythm, right bundle branch block, sinus tachycardia Computed tomography scan of the abdomen some thickening of the distal esophagus Chest x-ray film personally reviewed by me-diffuse infiltrates Assessment: -Multilobar Pneumonia suspect gram-negative organism, , POA-slow to respond -chronic congestive heart failure from systolic dysfunction EF 30-35%, POA -Persistent atrial fibrillation -Acute COPD exacerbation in a current smoker, slow to respond -Chronic nicotine dependence patient cigarette smoker -Coronary artery disease with prior history of stent -Primary osteoarthritis -Coumadin monitoring -chronic kidney disease stage III likely nephrosclerosis Plan: Continue IV ceftriaxone. IV steroids, inhaled steroids. Mucinex. Discussed with the patient. Expected in the hospital for another one or 2 days.
[2020-03-06 06:06] LABS: Glucose,Whole Blood 114 mg/dL (75-99)
[2020-03-06] MEDS: INSULIN ASPART (NovoLOG) 100 UNIT/ML VIAL SQ SCH ×4 (06:19→20:40)
[2020-03-06] MEDS: methylPREDNISolone SOD SUCCI 40 MG/ML 1 ML VIAL IV SCH ×2 (08:46→20:41)
[2020-03-06] MEDS: PARoxetine 20 MG TAB PO SCH (08:46)
[2020-03-06] MEDS: FUROSEMIDE 40 MG TAB PO SCH ×2 (08:46→17:58)
[2020-03-06] MEDS: POTASSIUM CHLORIDE ER 20 MEQ TAB.ER PO SCH ×2 (08:46→20:41)
[2020-03-06] MEDS: FOLIC ACID 1 MG TAB PO SCH (08:46)
[2020-03-06] MEDS: guaiFENesin 600 MG TABLET.ER PO SCH ×2 (08:47→20:41)
[2020-03-06] MEDS: PANTOPRAZOLE 40 MG TABLET PO SCH (08:47)
[2020-03-06] MEDS: LORATADINE 10 MG TAB PO SCH (08:47)
[2020-03-06] MEDS: SENNOSIDES-DOCUSATE SODIUM 1 EACH TAB PO SCH (08:47)
[2020-03-06] MEDS: NICOTINE 14MG/24HR PATCH TRANSDERM SCH (08:47)
[2020-03-06] MEDS: ASPIRIN 81 MG PO SCH (08:47)
[2020-03-06] MEDS: METOPROLOL TARTRATE 12.5 MG TAB PO SCH ×2 (08:47→20:41)
[2020-03-06] MEDS: ALPRAZolam 1 MG TAB PO SCH ×2 (08:47→20:41)
[2020-03-06 09:29] LABS: INR 2.1 (<1.2)
[2020-03-06] MEDS: IPRATROPIUM-ALBUTEROL 3 ML NEB INHALATION SCH ×5 (09:38→23:05)
[2020-03-06] MEDS: BUDESONIDE 0.5 MG/2 ML NEBU INHALATION SCH ×2 (09:38→20:00)
[2020-03-06 12:04] LABS: Glucose,Whole Blood 110 mg/dL (75-99)
--- NOTE | 2020-03-06 12:43 | P.PN ---
Subjective Progress Note Date: 03/06/20 CHIEF COMPLAINT: Abdominal pain with vomiting HISTORY OF PRESENT ILLNESS: Patient is being followed for her abdominal pain with difficulty swallowing and vomiting. Patient had esophageal thickening noted on computed tomography scan. She is scheduled for EGD for tomorrow. She's had no further vomiting. Still reports having some difficulty with swallowing. She is afebrile. INR 2.1 Covid negative PHYSICAL EXAM: VITAL SIGNS: Reviewed. GENERAL: Well-developed in no acute distress. HEENT: No sclera icterus. Extraocular movements grossly intact. Moist buccal mucosa. Head is atraumatic, normocephalic. ABDOMEN: Soft. Nondistended. Epigastric tenderness NEUROLOGIC: Alert and oriented. Cranial nerves II through XII grossly intact. ASSESSMENT: 1. Abdominal pain with vomiting 2. Thickened distal esophagus noted on computed tomography scan of abdomen and pelvis PLAN: -Patient scheduled for EGD with Dr. Baker tomorrow -Hold Coumadin tonight for procedure -Repeat PT/INR in a.m. -Place patient on a full liquid diet for today. Nothing by mouth after midnight Physician Map Colorer note has been reviewed by physician. Signing provider agrees with the documented findings, assessment, and plan of care. Objective - Vital Signs Vital signs: Vital Signs Temp 97.9 F 03/06/20 08:00 Pulse 88 03/06/20 09:54 Resp 16 03/06/20 08:00 BP 131/78 03/06/20 08:00 Pulse Ox 98 03/06/20 08:00 Intake & Output 03/05/20 03/06/20 03/06/20 18:59 06:59 18:59 Intake Total 480 700 0 Balance 480 700 0 Weight 90.8 kg Intake: Intake, IV Titration 160 Amount Lactated Ringers 1,000 ml 160 @ 20 mls/hr IV .Q24H [facility] Rx#:[id number] Oral 480 540 0 Other: Voiding Method Toilet Toilet # Voids 2 1 - Labs CBC & Chem 7: 03/03/20 11:12 03/05/20 06:51 Labs: Abnormal Lab Results - Last 24 Hours (Table) 03/05/20 03/05/20 03/05/20 Range/Units 16:36 19:08 20:06 PT (9.0-12.0) sec INR (<1.2) POC Glucose (mg/dL) 353 H 166 H 163 H (75-99) mg/dL 03/06/20 03/06/20 03/06/20 Range/Units 06:04 08:46 11:48 PT 20.0 H (9.0-12.0) sec INR 2.1 H (<1.2) POC Glucose (mg/dL) 114 H 110 H (75-99) mg/dL Microbiology - Last 24 Hours (Table) 03/03/20 12:51 Blood Culture - Preliminary Blood No Growth after 48 hours
[2020-03-06 16:41] LABS: Glucose,Whole Blood 186 mg/dL (75-99)
[2020-03-06] MEDS: AZITHROMYCIN 500 MG TAB PO SCH (17:58)
[2020-03-06] MEDS ORDERED: WARFARIN 3 MG TAB PO ONE (18:00)
[2020-03-06] MEDS: LACTATED RINGERS 1,000 ML IV SCH (18:29)
--- NOTE | 2020-03-06 19:08 | P.PN ---
Progress Note - Text Progress Note Date: 03/06/20 Chief Complaint: Short of breath cough History of presenting complaint This is a 69-year-old patient of Dr. Ervin adame. Chronic stable medical conditions include chronic kidney disease stage III, atrial fibrillation, coronary artery stent, primary osteoarthritis. Patient been having shortness of breath for some time now progressively getting worse. Very congested cough. Has been bringing up phlegm. Yellow. Appetite is okay. Had some low-grade fever. Some wheezing shortness of breath. Tired. Admitted with pneumonia, COPD exacerbation. Started IV ceftriaxone Zithromax IV Solu-Medrol DuoNeb. Today-eating better. Short of breath wheezing present. But some improvement. Coughing of phlegm. Review of systems: Was done for constitutional, cardiovascular, GI, pulmonary. relevant finding as above Active Medications Acetaminophen (Acetaminophen Tab 325 Mg Tab) 650 mg PO Q6HR PRN PRN Reason: Mild Pain or Fever > 100.5 Albuterol/Ipratropium (Ipratropium-Albuterol 3 Ml Neb) 3 ml INHALATION Q4H [facility] Last Admin: 03/06/20 15:52 Dose: 3 ml Documented by: Alprazolam (Alprazolam 1 Mg Tab) 1 mg PO BID [facility] Last Admin: 03/06/20 08:47 Dose: 1 mg Documented by: Aspirin (Aspirin 81 Mg) 81 mg PO DAILY [facility] Last Admin: 03/06/20 08:47 Dose: 81 mg Documented by: Atorvastatin Calcium (Atorvastatin 20 Mg Tab) 20 mg PO HS [facility] Last Admin: 03/05/20 20:19 Dose: 20 mg Documented by: Azithromycin (Azithromycin 500 Mg Tab) 500 mg PO DAILY@1600 [facility] Last Admin: 03/06/20 17:58 Dose: 500 mg Documented by: Budesonide (Budesonide 0.5 Mg/2 Ml Nebu) 0.5 mg INHALATION RT-BID [facility] Last Admin: 03/06/20 09:38 Dose: 0.5 mg Documented by: Calcium Carbonate/Glycine (Calcium Carbonate 500 Mg Chewable) 1,000 mg PO Q4HR PRN PRN Reason: Dyspepsia Folic Acid (Folic Acid 1 Mg Tab) 1 mg PO DAILY [facility] Last Admin: 03/06/20 08:46 Dose: 1 mg Documented by: Furosemide (Furosemide 40 Mg Tab) 40 mg PO BID@0900,1600 [facility] Last Admin: 03/06/20 17:58 Dose: 40 mg Documented by: Guaifenesin (Guaifenesin 600 Mg Tablet.Er) 1,200 mg PO Q12HR [facility] Last Admin: 03/06/20 08:47 Dose: 1,200 mg Documented by: Ceftriaxone Sodium 2 gm/ (Sodium Chloride) 50 mls @ 100 mls/hr IVPB Q24H [facility] Last Admin: 03/06/20 17:58 Dose: 100 mls/hr Documented by: Lactated Ringer's (Lactated Ringers) 1,000 mls @ 20 mls/hr IV .Q24H [facility] Last Admin: 03/06/20 18:29 Dose: Not Given Documented by: Insulin Aspart (Insulin Aspart (Novolog) 100 Unit/Ml Vial) 0 unit SQ ACHS [facility]; Protocol Last Admin: 03/06/20 18:00 Dose: Not Given Documented by: Lactulose (Lactulose 20 Gm/30 Ml Cup) 20 gm PO DAILY PRN PRN Reason: Constipation Loratadine (Loratadine 10 Mg Tab) 10 mg PO DAILY [facility] Last Admin: 03/06/20 08:47 Dose: 10 mg Documented by: Melatonin (Melatonin 3 Mg Tablet) 3 mg PO HS PRN PRN Reason: Insomnia Methylprednisolone Sodium Succinate (Methylprednisolone Sod Succi 40 Mg/Ml 1 Ml Vial) 40 mg IV Q12HR [facility] Last Admin: 03/06/20 08:46 Dose: 40 mg Documented by: Metoprolol Tartrate (Metoprolol Tartrate 12.5 Mg Tab) 12.5 mg PO BID [facility] Last Admin: 03/06/20 08:47 Dose: 12.5 mg Documented by: Naloxone HCl (Naloxone 0.4 Mg/Ml 1 Ml Vial) 0.2 mg IV Q2M PRN PRN Reason: Opioid Reversal Nicotine (Nicotine 14mg/24hr Patch) 1 patch TRANSDERM DAILY [facility] Last Admin: 03/06/20 08:47 Dose: 1 patch Documented by: Oxycodone/Acetaminophen (Oxycodone-Apap 10-325mg 1 Each Tab) 1 each PO Q6H PRN PRN Reason: Mild to Moderate Pain Last Admin: 03/05/20 20:20 Dose: 1 each Documented by: Pantoprazole Sodium (Pantoprazole 40 Mg Tablet) 40 mg PO DAILY [facility] Last Admin: 03/06/20 08:47 Dose: 40 mg Documented by: Paroxetine HCl (Paroxetine 20 Mg Tab) 40 mg PO DAILY [facility] Last Admin: 03/06/20 08:46 Dose: 40 mg Documented by: Potassium Chloride (Potassium Chloride Er 20 Meq Tab.Er) 20 meq PO BID [facility] Last Admin: 03/06/20 08:46 Dose: 20 meq Documented by: Senna/Docusate Sodium (Sennosides-Docusate Sodium 1 Each Tab) 2 each PO DAILY [facility] Last Admin: 03/06/20 08:47 Dose: 2 each Documented by: Zolpidem Tartrate (Zolpidem 5 Mg Tab) 5 mg PO HS [facility] Last Admin: 03/05/20 20:50 Dose: Not Given Documented by: On examination: VITAL SIGNS: 97.8, 74, 16, 131/83, 96% on 3 L GENERAL APPEARANCE: Sitting up in bed, more comfortable EYES: Pupils equal. Conjunctiva normal. NECK: JVD not raised. Mass not palpable. RESPIRATORY: Respiratory effort increased,. Decreased air entry, prolonged expiration CARDIOVASCULAR: First and second sounds normal. No edema. ABDOMEN: Soft. Liver and spleen not palpable. No tenderness. No mass palpable. PSYCHIATRY: Alert and oriented x3. Mood and affect-anxious. INVESTIGATIONS, reviewed in the clinical context: INR 2.1 Admission testing White count 19.2 hemoglobin 14.4 platelets 336 potassium 4.4 creatinine 1.11 lactic acid 7.2 troponin I less than 0.012 proBNP 429 EKG tracing personally reviewed by me-sinus rhythm, right bundle branch block, sinus tachycardia Computed tomography scan of the abdomen- some thickening of the distal esophagus, coarse calcifications of the pancreas. Chest x-ray film personally reviewed by me-diffuse infiltrates Assessment: -Multilobar Pneumonia suspect gram-negative organism, , POA-slow to respond -chronic congestive heart failure from systolic dysfunction EF 30-35%, POA -Persistent atrial fibrillation -Acute COPD exacerbation in a current smoker, slow to respond -Chronic nicotine dependence patient cigarette smoker -Coronary artery disease with prior history of stent -Primary osteoarthritis -Coumadin monitoring -chronic kidney disease stage III likely nephrosclerosis -Esophageal thickening on the computed tomography scan. EGD scheduled by Dr. Baker Plan: Continue IV ceftriaxone. IV steroids, inhaled steroids. Mucinex. EGD tomorrow being scheduled by Dr. Baker. Increase activity.
[2020-03-06 19:38] LABS: Glucose,Whole Blood 210 mg/dL (75-99)
[2020-03-06 20:34] LABS: Glucose,Whole Blood 140 mg/dL (75-99)
[2020-03-06] MEDS: oxyCODONE-APAP 10-325MG 1 EACH TAB PO PRN (20:41)
[2020-03-06] MEDS: ATORVASTATIN 20 MG TAB PO SCH (20:41)
--- NOTE | 2020-03-06 22:37 | P.PN ---
Subjective Progress Note Date: 03/06/20 Principal diagnosis: Acute COPD exacerbation Tracheobronchitis Bilateral pneumonia Distal esophageal thickening with symptoms of abdominal pain and intermittent in MrsJanessa Chronic atrial fibrillation Chronic systolic heart failure Coronary artery disease Extensive history of smoking and nicotine use 03/06/2020, patient seen eval examined during the rounds, for upper endoscopy scheduled for morning, Coumadin is on hold nausea vomiting slightly better cough congestion shortness of breath continued to improve 03/05/2020, patient is sitting upright in the bed breathing comfortably shortness of breath with stair cough is there however severity has improved, patient is scheduled for endoscopy tomorrow 03/04/2020, patient seen eval examined during the rounds shortness of breath slightly better cough is better, GI service is on consult patient is scheduled for endoscopy, respiratory status slightly improved, cough congestion is better, patient is still gagging however intermittently but severity definitely have improved compared to yesterday exam This is a 68-year-old female with long-standing history of COPD and stage hypoxic respiratory failure due to and his stay COPD oxygen dependent, patient has a recent hospitalization in another hospital several months ago with acute COPD exacerbation she has been gagging coughing bringing up mucoid to light brown sputum, along with that she is been complaining of abdominal pain, denies any chest pain, does have shortness of breath smoking is down significantly, her significant history is for significant valvular heart disease history of mitral valve replacement at [facility], she has been on anticoagulation with Coumadin, also has a chronic atrial fibrillation history of [place] and pneumonia, she has chronic systolic heart failure status post AICD and pacemaker also has a history of coronary artery disease with multiple stent placement in the past, her admitted chest x-ray significant for CHF-like changes and interstitial edema, computed tomography scan of the abdominal and pelvis significant for a by basilar atelectasis and septal thickening in the bases of the lung, liver is normal, dilated duct in the biliary area has been noted, significant finding of distal esophagus circumferential thickening is noted likely neoplastic changes Objective - Vital Signs Vital signs: Vital Signs Temp 97.9 F 03/06/20 20:00 Pulse 88 03/06/20 20:14 Resp 16 03/06/20 20:00 BP 110/75 03/06/20 20:00 Pulse Ox 97 03/06/20 20:02 Intake & Output 03/06/20 03/06/20 03/07/20 06:59 18:59 06:59 Intake Total 700 720 Balance 700 720 Weight 90.8 kg Intake: Intake, IV Titration 160 Amount Lactated Ringers 1,000 ml 160 @ 20 mls/hr IV .Q24H AYANNA Rx#:[id number] Oral 540 720 Other: Voiding Method Toilet Toilet Toilet # Voids 1 2 1 - Exam - Constitutional General appearance: average body habitus, cooperative, disheveled - EENT Eyes: PERRLA Ears: bilateral: normal - Neck Neck: normal ROM Carotids: bilateral: upstroke normal Thyroid: bilateral: normal size - Respiratory Respiratory: bilateral: diminished - Cardiovascular Rhythm: regular Heart sounds: normal: S1, S2 - Labs CBC & Chem 7: 03/03/20 11:12 03/05/20 06:51 Labs: Abnormal Lab Results - Last 24 Hours (Table) 03/06/20 03/06/20 03/06/20 Range/Units 06:04 08:46 11:48 PT 20.0 H (9.0-12.0) sec INR 2.1 H (<1.2) POC Glucose (mg/dL) 114 H 110 H (75-99) mg/dL 03/06/20 03/06/20 03/06/20 Range/Units 16:36 19:36 20:33 PT (9.0-12.0) sec INR (<1.2) POC Glucose (mg/dL) 186 H 210 H 140 H (75-99) mg/dL Microbiology - Last 24 Hours (Table) 03/03/20 12:51 Blood Culture - Preliminary Blood No Growth after 72 hours Assessment and Plan Assessment: Acute COPD exacerbation Tracheobronchitis Bilateral pneumonia Distal esophageal thickening with symptoms of abdominal pain and intermittent in Mrs. Chronic atrial fibrillation Chronic systolic heart failure Coronary artery disease Extensive history of smoking and nicotine use Plan: Continue antibiotics Supplemental oxygen Deep breathing exercises incentive spirometry Bronchodilators IV steroids PPI evaluation for endoscopy Further recommendations pending plan of care as per clinical response of the patient Time with Patient: Greater than 30
[2020-03-06] MEDS: ZOLPIDEM 5 MG TAB PO SCH (23:56)
[2020-03-07] MEDS: IPRATROPIUM-ALBUTEROL 3 ML NEB INHALATION SCH ×5 (03:13→16:57)
[2020-03-07 06:07] LABS: Glucose,Whole Blood 132 mg/dL (75-99)
[2020-03-07] MEDS: INSULIN ASPART (NovoLOG) 100 UNIT/ML VIAL SQ SCH (06:15)
[2020-03-07] MEDS ORDERED: PROPOFOL 10 MG/ML 20 ML VIAL IV ONE (07:45)
[2020-03-07] MEDS ORDERED: LIDOCAINE 1% INJ 10MG/ML (20 ML MDV) ONE (07:45)
[2020-03-07] MEDS ORDERED: IV FLUID CONTINUATION 1,000 ML IV ONE (07:50)
--- NOTE | 2020-03-07 08:00 | P.OP ---
Date of Procedure: 03/07/20 Preoperative Diagnosis: Esophagitis Postoperative Diagnosis: Antral gastritis Small sliding hiatal hernia Esophagitis with sloughing of mucosa Procedure(s) Performed: EGD Anesthesia: MAC Surgeon: Germain Baker Pathology: other (Antrum, esophagus) Condition: stable Disposition: PACU Description of Procedure: The patient's placed on the endoscopy table in the lateral position she received IV sedation. The gastroscope placed oropharynx and passed in the esophagus into the stomach. Scope was placed through the pylorus. The first and second portion of the duodenum appeared normal. Scope was then brought back the antrum and appeared to be evidence of some hemorrhagic gastritis. A biopsies perfo rmed. Scope was unretroflexed and remainder of the stomach appeared normal. There was a small sliding hiatal hernia. The distal esophagus appeared to be inflamed. There is sloughing of the mucosa a biopsies performed. It was unclear if there was a stenosis of the distal esophagus or spasm. The proximal esophagus appeared normal. Scope was withdrawn for patient. Plan - Discharge Summary Discharge Rx Participant: No New Discharge Prescriptions: No Action Furosemide [Lasix] 40 mg PO BID Simvastatin [Zocor] 40 mg PO HS Potassium Chloride 16 meq PO BID Loratadine 10 mg PO DAILY PARoxetine HCL [Paxil] 40 mg PO DAILY oxyCODONE-APAP 10-325MG [Percocet 10-325 mg] 1 tab PO Q6H Aspirin 81 mg PO DAILY #30 chew Albuterol Nebulized [Ventolin Nebulized] 2.5 mg INHALATION RT-TID Zolpidem Tartrate [Ambien] 5 mg PO HS Warfarin [Coumadin] 3 mg PO DAILY Sennosides/Docusate Sodium [Senna Plus 8.6-50 mg Tablet] 2 tab PO DAILY Nicotine 14Mg/24Hr Patch [Habitrol 14Mg/24Hr Patch] 1 patch TRANSDERM DAILY Folic Acid 1 mg PO DAILY ALPRAZolam [Xanax] 1 mg PO BID Metoprolol Tartrate [Lopressor] 12.5 mg PO BID Discharge Medication List Furosemide [Lasix] 40 mg PO BID 02/19/16 [History] Potassium Chloride 16 meq PO BID 02/19/16 [History] Simvastatin [Zocor] 40 mg PO HS 02/19/16 [History] Loratadine 10 mg PO DAILY 05/25/17 [History] PARoxetine HCL [Paxil] 40 mg PO DAILY 11/21/17 [History] oxyCODONE-APAP 10-325MG [Percocet 10-325 mg] 1 tab PO Q6H 11/21/17 [History] Aspirin 81 mg PO DAILY #30 chew 06/01/19 [Rx] ALPRAZolam [Xanax] 1 mg PO BID 03/03/20 [History] Albuterol Nebulized [Ventolin Nebulized] 2.5 mg INHALATION RT-TID 03/03/20 [History] Folic Acid 1 mg PO DAILY 03/03/20 [History] Metoprolol Tartrate [Lopressor] 12.5 mg PO BID 03/03/20 [History] Nicotine 14Mg/24Hr Patch [Habitrol 14Mg/24Hr Patch] 1 patch TRANSDERM DAILY 03/03/20 [History] Sennosides/Docusate Sodium [Senna Plus 8.6-50 mg Tablet] 2 tab PO DAILY 03/03/20 [History] Warfarin [Coumadin] 3 mg PO DAILY 03/03/20 [History] Zolpidem Tartrate [Ambien] 5 mg PO HS 03/03/20 [History] Follow up Appointment(s)/Referral(s): Priyank Perez MD [Primary Care Provider] - 1-2 days Israel Mobley MD [STAFF PHYSICIAN] - 1 Week
[2020-03-07] MEDS: BUDESONIDE 0.5 MG/2 ML NEBU INHALATION SCH (08:45)
[2020-03-07] MEDS: SENNOSIDES-DOCUSATE SODIUM 1 EACH TAB PO SCH (08:53)
[2020-03-07] MEDS: PARoxetine 20 MG TAB PO SCH (08:53)
[2020-03-07] MEDS: POTASSIUM CHLORIDE ER 20 MEQ TAB.ER PO SCH (08:54)
[2020-03-07] MEDS: FUROSEMIDE 40 MG TAB PO SCH (08:54)
[2020-03-07] MEDS: ASPIRIN 81 MG PO SCH (08:54)
[2020-03-07] MEDS: PANTOPRAZOLE 40 MG TABLET PO SCH (08:54)
[2020-03-07] MEDS: METOPROLOL TARTRATE 12.5 MG TAB PO SCH (08:54)
[2020-03-07] MEDS: LORATADINE 10 MG TAB PO SCH (08:54)
[2020-03-07] MEDS: guaiFENesin 600 MG TABLET.ER PO SCH (08:54)
[2020-03-07] MEDS: FOLIC ACID 1 MG TAB PO SCH (08:54)
[2020-03-07] MEDS: ALPRAZolam 1 MG TAB PO SCH (08:54)
[2020-03-07] MEDS: methylPREDNISolone SOD SUCCI 40 MG/ML 1 ML VIAL IV SCH (08:55)
[2020-03-07] MEDS: NICOTINE 14MG/24HR PATCH TRANSDERM SCH (08:55)
--- NOTE | 2020-03-07 09:26 | P.PN ---
Subjective Progress Note Date: 03/07/20 Principal diagnosis: Acute COPD exacerbation Tracheobronchitis Bilateral pneumonia Distal esophageal thickening with symptoms of abdominal pain and intermittent in MrsJanessa Chronic atrial fibrillation Chronic systolic heart failure Coronary artery disease Extensive history of smoking and nicotine use March 07 2020, patient seen eval examined during the rounds labs reviewed medications reviewed care plan discussed, patient sitting upright in the bed breathing comfortably she is status post endoscopy and EGD earlier this morning, tolerated very well, findings of EGD noted with an telemetry changes in distal esophagus with irregular mucosa biopsies results are pending 03/06/2020, patient seen eval examined during the rounds, for upper endoscopy scheduled for morning, Coumadin is on hold nausea vomiting slightly better cough congestion shortness of breath continued to improve 03/05/2020, patient is sitting upright in the bed breathing comfortably shortness of breath with stair cough is there however severity has improved, patient is scheduled for endoscopy tomorrow 03/04/2020, patient seen eval examined during the rounds shortness of breath slightly better cough is better, GI service is on consult patient is scheduled for endoscopy, respiratory status slightly improved, cough congestion is better, patient is still gagging however intermittently but severity definitely have improved compared to yesterday exam This is a 68-year-old female with long-standing history of COPD and stage hypoxic respiratory failure due to and his stay COPD oxygen dependent, patient has a recent hospitalization in another hospital several months ago with acute COPD exacerbation she has been gagging coughing bringing up mucoid to light brown sputum, along with that she is been complaining of abdominal pain, denies any chest pain, does have shortness of breath smoking is down significantly, her significant history is for significant valvular heart disease history of mitral valve replacement at [facility], she has been on anticoagulation with Coumadin, also has a chronic atrial fibrillation history of [place] and pneumonia, she has chronic systolic heart failure status post AICD and pacemaker also has a history of coronary artery disease with multiple stent placement in the past, her admitted chest x-ray significant for CHF-like changes and interstitial edema, computed tomography scan of the abdominal and pelvis significant for a by basilar atelectasis and septal thickening in the bases of the lung, liver is normal, dilated duct in the biliary area has been noted, significant finding of distal esophagus circumferential thickening is noted likely neoplastic changes Objective - Vital Signs Vital signs: Vital Signs Temp 98.4 F 03/07/20 04:00 Pulse 92 03/07/20 09:07 Resp 14 03/07/20 04:00 BP 133/81 03/07/20 04:00 Pulse Ox 96 03/07/20 04:00 Intake & Output 03/06/20 03/07/20 03/07/20 18:59 06:59 18:59 Intake Total 720 100 Balance 720 100 Weight 90.9 kg Intake: IV 100 Oral 720 0 Other: Voiding Method Toilet Toilet # Voids 2 1 - Exam - Constitutional General appearance: average body habitus, cooperative, disheveled - EENT Eyes: PERRLA Ears: bilateral: normal - Neck Neck: normal ROM Carotids: bilateral: upstroke normal Thyroid: bilateral: normal size - Respiratory Respiratory: bilateral: diminished - Cardiovascular Rhythm: regular Heart sounds: normal: S1, S2 - Labs CBC & Chem 7: 03/03/20 11:12 03/05/20 06:51 Labs: Abnormal Lab Results - Last 24 Hours (Table) 03/06/20 03/06/20 03/06/20 Range/Units 08:46 11:48 16:36 PT 20.0 H (9.0-12.0) sec INR 2.1 H (<1.2) POC Glucose (mg/dL) 110 H 186 H (75-99) mg/dL 03/06/20 03/06/20 03/07/20 Range/Units 19:36 20:33 06:04 PT (9.0-12.0) sec INR (<1.2) POC Glucose (mg/dL) 210 H 140 H 132 H (75-99) mg/dL Microbiology - Last 24 Hours (Table) 03/03/20 12:51 Blood Culture - Preliminary Blood No Growth after 72 hours Assessment and Plan Assessment: Acute COPD exacerbation Tracheobronchitis Bilateral pneumonia Distal esophageal thickening with symptoms of abdominal pain and intermittent emesis status post EGD with finding of endometrial changes in distal esophagus status post biopsy results pending Chronic atrial fibrillation Chronic systolic heart failure Coronary artery disease Extensive history of smoking and nicotine use Plan: Continue antibiotics can be changed to oral Supplemental oxygen Deep breathing exercises incentive spirometry Bronchodilators IV steroids can be changed to oral PPI Status post endoscopy and EGD follow-up on biopsy Further recommendations pending plan of care as per clinical response of the patient Time with Patient: Greater than 30
[2020-03-07 09:33] LABS: Prothrombin Time 19.8 sec (9.0-12.0)
[2020-03-07 10:00] VITALS: TEMP 97.8
[2020-03-07 12:05] LABS: Glucose,Whole Blood 148 mg/dL (75-99)
[2020-03-07 17:06] VITALS: BP 116/67; PULSE 76; RESP 18
--- NOTE | 2020-03-07 21:45 | P.DS ---
Providers Date of admission: 03/03/20 16:54 Expected date of discharge: 03/07/20 Attending physician: Eric Argueta Consults: 03/03/20 15:04 Consult Physician Urgent Consulting Provider: Germain Baker Consult Reason/Comments: Abdominal pain, acute vomiting Do you want consulting provider notified?: Yes 03/03/20 16:07 Consult Physician Urgent Consulting Provider: Israel Mobley Consult Reason/Comments: pulmonary edema vs pneumonia Do you want consulting provider notified?: Already Contacted Primary care physician: Priyank Perez MD Hospital Course: Chief Complaint: Short of breath cough History of presenting complaint This is a 69-year-old patient of Dr. Ervin perez. Chronic stable medical conditions include chronic kidney disease stage III, atrial fibrillation, coronary artery stent, primary osteoarthritis. Patient been having shortness of breath for some time now progressively getting worse. Very congested cough. Has been bringing up phlegm. Yellow. Appetite is okay. Had some low-grade fever. Some wheezing shortness of breath. Tired. Admitted with pneumonia, COPD exacerbation. Started IV ceftriaxone Zithromax IV Solu-Medrol DuoNeb. Computed tomography scan of the chest did show some thickening of the lower esophagus. Today-breathing better. Much improved. Keen to go home. Dr. Baker today did EGD-showed antral gastritis, esophagitis and sloughing of mucosa. Treatment plan discussed. Dose of PPI increased. Discussion and discharge planning more than 35 minutes Consultation: Dr. Reinaldo Mobley from pulmonary Dr. Baker from general surgery On examination: VITAL SIGNS: 97.8, 74, 16, 126% he 1, 94% on 3 L GENERAL APPEARANCE: Sitting up in bed, doing better EYES: Pupils equal. Conjunctiva normal. NECK: JVD not raised. Mass not palpable. RESPIRATORY: Respiratory effort increased,. Decreased air entry, CARDIOVASCULAR: First and second sounds normal. No edema. ABDOMEN: Soft. Liver and spleen not palpable. No tenderness. No mass palpable. PSYCHIATRY: Alert and oriented x3. Mood and normal INVESTIGATIONS, reviewed in the clinical context: INR 2 Admission testing White count 19.2 hemoglobin 14.4 platelets 336 potassium 4.4 creatinine 1.11 lactic acid 7.2 troponin I less than 0.012 proBNP 429 EKG tracing personally reviewed by me-sinus rhythm, right bundle branch block, sinus tachycardia Computed tomography scan of the abdomen some thickening of the distal esophagus Chest x-ray film personally reviewed by me-diffuse infiltrates Assessment: -Multilobar Pneumonia suspect gram-negative organism, , doing much better -chronic congestive heart failure from systolic dysfunction EF 30-35%, POA -Persistent atrial fibrillation -Acute COPD exacerbation in a current smoker, slow to respond -Chronic nicotine dependence patient cigarette smoker -Coronary artery disease with prior history of stent -Primary osteoarthritis -Coumadin monitoring -chronic kidney disease stage III likely nephrosclerosis -Severe esophagitis with antral gastritis -Chronic hypoxic respiratory failure on home oxygen 3 L Disposition: Home Patient Condition at Discharge: Stable Plan - Discharge Summary Discharge Rx Participant: No New Discharge Prescriptions: New Cefuroxime Axetil [Ceftin] 500 mg PO BID 1 Days #6 tab Ipratropium-Albuterol Nebulize [Duoneb 0.5 mg-3 mg/3 ml Soln] 3 ml INHALATION QID #120 ml guaiFENesin [Mucinex] 1,200 mg PO Q12HR #30 tablet.er predniSONE 10 mg PO DAILY #30 tab Omeprazole [PriLOSEC] 20 mg PO AC-BID #60 cap Continue Furosemide [Lasix] 40 mg PO BID Simvastatin [Zocor] 40 mg PO HS Potassium Chloride 16 meq PO BID Loratadine 10 mg PO DAILY PARoxetine HCL [Paxil] 40 mg PO DAILY oxyCODONE-APAP 10-325MG [Percocet 10-325 mg] 1 tab PO Q6H Aspirin 81 mg PO DAILY #30 chew Zolpidem Tartrate [Ambien] 5 mg PO HS Warfarin [Coumadin] 3 mg PO DAILY Sennosides/Docusate Sodium [Senna Plus 8.6-50 mg Tablet] 2 tab PO DAILY Nicotine 14Mg/24Hr Patch [Habitrol] 1 patch TRANSDERM DAILY Folic Acid 1 mg PO DAILY ALPRAZolam [Xanax] 1 mg PO BID Metoprolol Tartrate [Lopressor] 12.5 mg PO BID Discontinued Albuterol Nebulized [Ventolin Nebulized] 2.5 mg INHALATION RT-TID Discharge Medication List Furosemide [Lasix] 40 mg PO BID 02/19/16 [History] Potassium Chloride 16 meq PO BID 02/19/16 [History] Simvastatin [Zocor] 40 mg PO HS 02/19/16 [History] Loratadine 10 mg PO DAILY 05/25/17 [History] PARoxetine HCL [Paxil] 40 mg PO DAILY 11/21/17 [History] oxyCODONE-APAP 10-325MG [Percocet 10-325 mg] 1 tab PO Q6H 11/21/17 [History] Aspirin 81 mg PO DAILY #30 chew 06/01/19 [Rx] ALPRAZolam [Xanax] 1 mg PO BID 03/03/20 [History] Folic Acid 1 mg PO DAILY 03/03/20 [History] Metoprolol Tartrate [Lopressor] 12.5 mg PO BID 03/03/20 [History] Nicotine 14Mg/24Hr Patch [Habitrol] 1 patch TRANSDERM DAILY 03/03/20 [History] Sennosides/Docusate Sodium [Senna Plus 8.6-50 mg Tablet] 2 tab PO DAILY 03/03/20 [History] Warfarin [Coumadin] 3 mg PO DAILY 03/03/20 [History] Zolpidem Tartrate [Ambien] 5 mg PO HS 03/03/20 [History] Cefuroxime Axetil [Ceftin] 500 mg PO BID 1 Days #6 tab 03/07/20 [Rx] Ipratropium-Albuterol Nebulize [Duoneb 0.5 mg-3 mg/3 ml Soln] 3 ml INHALATION QID #120 ml 03/07/20 [Rx] Omeprazole [PriLOSEC] 20 mg PO AC-BID #60 cap 03/07/20 [Rx] guaiFENesin [Mucinex] 1,200 mg PO Q12HR #30 tablet.er 03/07/20 [Rx] predniSONE 10 mg PO DAILY #30 tab 03/07/20 [Rx] Follow up Appointment(s)/Referral(s): Priyank Perez MD [Primary Care Provider] - 03/13/20 9:00 am Israel Mobley MD [STAFF PHYSICIAN] - 1 Week (Office closed please call to make f ollow up appointment, to be seen in 1 week.) Germain Baker MD [STAFF PHYSICIAN] - 03/18/20 2:20 pm Patient Instructions/Handouts: Pulmonary Edema (DC) Activity/Diet/Wound Care/Special Instructions: cbc/bmp/inr - 5 days Discharge Disposition: HOME SELF-CARE
== END 2020-03-07 16:53 | disposition home or self-care (01) | DRG 871 ==
LOC: EC 10:55 → 1SOBS 15:19 → 3SCARD 16:35 → OBSVTOIN 16:54 → 3SCARD 17:54
PROVIDERS: ADMIT Hospitalist; ATTEND Hospitalist
PROC: 0DB68ZX Excision of Stomach, Via Natural or Artificial Opening Endoscopic, Diagnostic (ICD-10-PCS; principal; 2020-03-07 12:30)
PROC: 0DB58ZX Excision of Esophagus, Via Natural or Artificial Opening Endoscopic, Diagnostic (ICD-10-PCS; principal; 2020-03-07 12:30)
DX: A41.59 Other Gram-negative sepsis (principal); J15.6 Pneumonia due to other Gram-negative bacteria; K29.71 Gastritis, unspecified, with bleeding; E87.2 Acidosis; I13.0 Hypertensive heart and chronic kidney disease with heart failure and stage 1 through stage 4 chronic kidney disease, or unspecified chronic kidney disease; I48.19 Other persistent atrial fibrillation; I50.22 Chronic systolic (congestive) heart failure; J44.0 Chronic obstructive pulmonary disease with (acute) lower respiratory infection; J44.1 Chronic obstructive pulmonary disease with (acute) exacerbation; J96.11 Chronic respiratory failure with hypoxia; F17.210 Nicotine dependence, cigarettes, uncomplicated; Z20.828 Contact with and (suspected) exposure to other viral communicable diseases; F32.9 Major depressive disorder, single episode, unspecified; I25.10 Atherosclerotic heart disease of native coronary artery without angina pectoris; I45.10 Unspecified right bundle-branch block; N18.30 Chronic kidney disease, stage 3 unspecified; M19.91 Primary osteoarthritis, unspecified site; K20.90 Esophagitis, unspecified without bleeding; K44.9 Diaphragmatic hernia without obstruction or gangrene; R13.10 Dysphagia, unspecified; Z79.82 Long term (current) use of aspirin; Z79.01 Long term (current) use of anticoagulants; I25.2 Old myocardial infarction; Z95.2 Presence of prosthetic heart valve; Z95.5 Presence of coronary angioplasty implant and graft; Z95.810 Presence of automatic (implantable) cardiac defibrillator; Z99.81 Dependence on supplemental oxygen; Z82.49 Family history of ischemic heart disease and other diseases of the circulatory system; Z79.899 Other long term (current) drug therapy; Z88.1 Allergy status to other antibiotic agents; Z88.5 Allergy status to narcotic agent; Z88.0 Allergy status to penicillin; Z87.01 Personal history of pneumonia (recurrent); Z98.891 History of uterine scar from previous surgery; Z98.51 Tubal ligation status
CPT/HCPCS: 36415; 43239; 71046; 74177; 80048; 80053; 81001; 82150; 83605; 83690; 83735; 83880; 84484; 85025; 85610; 85730; 87040; 88305; 93005; 94640; 94760; 96361; 96365; 96367; 96375; 99285